=== PATIENT | male | born 1955 | race Caucasian/White ===

== ENCOUNTER 2023-07-14 17:30 | Inpatient (IN) | payer OTHER, SELFPAY ==
[2023-07-14] VITALS (7 sets, daily range): BP systolic 72–120; BP diastolic 52–76; BMI 29.7
--- NOTE | 2023-07-14 13:56 | ED.GENMED ---
History of Present Illness
General
Chief Complaint: Chest Pain
Time Seen by Provider: 07/14/23 13:50
Travel History
Have you had any contact with someone who has COVID-19?: No
Do you have any symptoms of coronavirus? Fever > 100 degrees, chills, cough, shortness of breath, sore throat, loss of taste or smell, muscle aches, or headache?: Yes
Symptoms:: fever
History of Present Illness
History of Present Illness:
HPI: The patient presents with chest tightness that started last night around 8 PM. It has been constant for the past 18 hours. He was never diaphoretic and never had any shortness of breath but notes that the symptoms worsen with exertion.
EXAM:
GENERAL: Well appearing in minimal distress
HEENT: Moist oral mucosa
CARDIOVASCULAR: No murmurs, tachycardic heart rate and rhythm, No chest wall tenderness
PULMONARY: No respiratory distress, breath sounds are clear and equal
ABDOMEN: Soft with no peritoneal signs, no tenderness
NEUROLOGIC: Excellent strength all extremities, no coordination deficits
PSYCHIATRIC: Appropriate mental status, normal insight and judgement
EXTREMITIES: Nontender, no edema, moves all extremities equally
SKIN: No rash, no lesions
ED COURSE:
1:50 PM: I initially evaluated patient
NUMBER AND COMPLEXITY OF PROBLEMS ADDRESSED AT THE ENCOUNTER
� Chronic conditions affecting care: High blood pressure and diabetes
� Acute Exacerbation and/or Progression of Chronic Illness: This is an acute problem
� Differential Diagnosis includes: ACS/STEMI
AMOUNT AND/OR COMPLEXITY OF DATA TO BE REVIEWED AND ANALYZED
� I performed an independent evaluation of and my interpretation is:
EKG: EKG shows sinus tachycardia with marked ST depression in the posterior leads consistent with posterior STEMI
CT:
X-rays:
Laboratory Studies: White count 11.5, troponin 0.167
Other:
� Review of other/old records: Old records show the patient does have a history of diabetes and was here in 2007 with chest pain
� Clinical information was obtained by an independent historian: I spoke to the bedside
� Prescriptions/Medications Considered but not given:
� Further testing considered but not performed:
RISK OF COMPLICATIONS AND/OR MORBIDITY OR MORTALITY OF PATIENT MANAGEMENT
� Social determinants of health affecting care:
� Discussion with other providers: I notified Dr. Gallegos of the STEMI at approximately 1:53 PM
� Escalation of care including admission/observation vs risk of discharge considered: Given the new ST abnormality with concern for posterior STEMI, STEMI alert was called shortly after patient arrival. Patient left the
department shortly after initial evaluation.
Past History
Past History
ED Past Medical History: Other (na)
ED Past Surgical History: Orthopedic (Left rotator cuff repair)
Social History
Tobacco: Non-smoker
Alcohol: None
Personal:
Living: with family
Family History
Family History: Negative Early CAD, CAD or Sudden
Phy Exam
Physical Exam
Physical Exam:
See HPI
Scores
Heart Score for Chest Pain Patients
STEMI patient?: Yes
Course
Orders/Labs/Results
Orders:
Orders
07/14/23 13:34
EKG [Electrocardiogram (*1)] Urgent
Reason for Study: Chest Pain
EKG- Treatment ONCE
07/14/23 13:58
Complete Blood Count/With Diff Urgent
Comprehensive Metabolic Panel Urgent
Prothrombin Time Urgent
Troponin I Urgent
Aspirin Chewable [Low Strength Aspirin] 324 mg .ROUTE .STK-MED ONE
Heparin 5,000 units .ROUTE .STK-MED ONE
Ticagrelor [Brilinta] 180 mg .ROUTE .STK-MED ONE
07/14/23 14:44
Arterial Blood Gas Urgent
07/14/23 14:48
Lidocaine HCl/Pf [Xylocaine-Mpf 1% Vial] 100 mg .ROUTE .STK-MED ONE
07/14/23 15:00
Heparin Sodium,Porcine/Ns/Pf [Heparin 2000 Units/1000 ml] 2,000 unit in 1,000 ml .ROUTE .STK-MED
NORepinephrine 4 MG/250 ML [Levophed] 4 mg in 250 ml IV PER PROTOCOL
Initial dose in mcg/min, then titrate:: 4
Titrate to keep:: SBP > 90 mmHg
Titrate by mcg/min:: 1-2 mcg/min
Frequency of titrations (minutes):: 5
Maximum dose in ICU in mcg/min:: 30
Maximum dose in IMU in mcg/min:: 8
Maximum dose in IVU in mcg/min:: 4
Begin to taper infusion when:: Remained at goal for 4hrs
Taper by mcg/min:: 1-2 mcg/min
Frequency of taper (minutes) if patient maintains goal:: 30
Taper to off?: Yes
If infusion off & no longer maintaining goal:: Contact Provider
07/14/23 15:49
Arterial Blood Gas Urgent
07/14/23 16:10
Heparin 1000 Units/500 ml [Heparin] 1,000 units in 500 ml .ROUTE .STK-MED
07/15/23 08:00
Polyethylene Glycol Powder [Miralax] 17 grams TUBE DAILY
Abnormal Lab Results
07/14/23 07/14/23 07/14/23
13:58 14:33 14:44
WBC 11.5 H 10^3/uL
(4.8-10.8)
Abs Immat Gran (auto) 0.1 H 10^3/uL
(0-0.05)
Absolute Neuts (auto) 9.0 H 10^3/uL
(1.4-6.5)
Absolute Lymphs (auto) 0.9 L 10^3/uL
(1.2-3.4)
Absolute Monos (auto) 1.4 H 10^3/uL
(0.1-0.6)
Neutrophils % 78.6 H %
(42.2-75.2)
Lymphocytes % 7.7 L %
(20.5-51.1)
Monocytes % 12.2 H %
(1.7-9.3)
pH
pO2 60 L mmHg
(83-108)
ABG O2 Sat (Measured) 92.6 L %
(94-98)
Sodium 133 L mmol/L
(135-145)
BUN 22 H mg/dl
(9-20)
Glucose 181 H mg/dl
(70-99)
Total Bilirubin 1.5 H mg/dl
(0.2-1.3)
Troponin I 0.167 H* ng/ml
POC ACT Low Range 207 H Seconds
(116-155)
07/14/23 07/14/23 07/14/23
14:48 15:09 15:34
WBC
Abs Immat Gran (auto)
Absolute Neuts (auto)
Absolute Lymphs (auto)
Absolute Monos (auto)
Neutrophils %
Lymphocytes %
Monocytes %
pH
pO2
ABG O2 Sat (Measured)
Sodium
BUN
Glucose
Total Bilirubin
Troponin I
POC ACT Low Range 281 H Seconds > 397 H Seconds 319 H Seconds
(116-155) (116-155) (116-155)
07/14/23
15:49
WBC
Abs Immat Gran (auto)
Absolute Neuts (auto)
Absolute Lymphs (auto)
Absolute Monos (auto)
Neutrophils %
Lymphocytes %
Monocytes %
pH 7.34 L
(7.35-7.45)
pO2 166 H mmHg
(83-108)
ABG O2 Sat (Measured) 99.4 H %
(94-98)
Sodium
BUN
Glucose
Total Bilirubin
Troponin I
POC ACT Low Range
07/14/23 13:58
07/14/23 13:58
Vital Signs
Initial and Last Documented VS:
Initial Vital Signs
Temp Pulse Resp BP Pulse Ox
100.5 F H 122 18 113/75 98
07/14/23 13:38 07/14/23 13:38 07/14/23 13:38 07/14/23 13:38 07/14/23 13:38
Last Documented Vital Signs
Temp Pulse Resp BP Pulse Ox
100.5 F H 122 18 113/75 98
07/14/23 13:38 07/14/23 13:38 07/14/23 13:38 07/14/23 13:38 07/14/23 13:38
*Critical Care Note
Total Time (30-74mins, 75-104mins- exclusive of procedures): Not Applicable
ED Attending Note
-
Portions of this chart may have been created with voice recognition software.� Occasional wrong word or��sound alike� substitutions may have occurred due to the inherent limitations of voice recognition software.
Discharge Plan
Departure
Patient Disposition: Admit
Date of Disposition: 07/14/23
Time of Disposition: 13:56
Presentation/result/management discussed w/ accepting MD/DO: farhan
Discharge Problem:
Acute ST elevation myocardial infarction (STEMI) of posterior wall
Interventions
Interventions:
*Risk Screen - Suicide Last Done: 07/14/23 14:12
*General Assessment Last Done: 07/14/23 13:38
*Neglect/Abuse Screening Last Done: 07/14/23 14:12
ED- Fall Risk Assessment Last Done: 07/14/23 14:13
*ED COVID-19 Vaccine History Last Done: 07/14/23 13:38
*Nursing Disposition Last Done: 07/14/23 14:13
ED- Cardiac Assessment Last Done: 07/14/23 14:12
Discharge Date and Time
Discharge Date/Time: 07/14/23 14:14
[2023-07-14 14:04] LABS: % Basophils 0.6 % (0-2); % Eosinophils 0.4 % (0-6); % Immature Granulocytes 0.5 % (0-0.5); % Lymphocytes 7.7 % (20.5-51.1); % Monocytes 12.2 % (1.7-9.3); % Neutrophils 78.6 % (42.2-75.2); Absolute Basophils 0.1 10^3/uL (0-0.2); Absolute Eosinophils 0.1 10^3/uL (0-0.7); Absolute Immature Granulocytes 0.1 10^3/uL (0-0.05); Absolute Lymphocytes 0.9 10^3/uL (1.2-3.4); Absolute Monocytes 1.4 10^3/uL (0.1-0.6); Hematocrit 42.1 % (39.0-52.0); Hemoglobin 14.4 g/dL (13.0-18.0); Mean Corp Hgb Conc. 34.2 g/dL (33.0-37.0); Mean Corpuscular Hgb 27.8 pg (27.0-31.0); Mean Corpuscular Volume 81.3 fL (80.0-94.0); Mean Platelet Volume 9.6 fL (7.4-10.4); Nucleated Red Blood Cells % 0 % (-); Platelet Count 283 10^3/uL (130-400); Red Blood Cell Count 5.18 10^6/uL (4.70-6.10); Red Cell Dist. Width 13.2 % (11.5-14.5); White Blood Cell Count 11.5 10^3/uL (4.8-10.8)
[2023-07-14 14:15] LABS: INR 1.11; PT 14.4 Sec (11.4-14.6)
[2023-07-14 14:19] LABS: ALT (SGPT) 34 U/L (0-50); AST (SGOT) 37 U/L (17-59); Albumin 4.7 g/dl (3.5-5.0); Alkaline Phosphatase 79 U/L (38-126); Blood Urea Nitrogen 22 mg/dl (9-20); Carbon Dioxide 23 mmol/L (22-30); Chloride 101 mmol/L (98-107); Estimated Creatinine Clearance 75 ml/min; Glucose 181 mg/dl (70-99); Potassium 4.3 mmol/L (3.5-5.1); Sodium 133 mmol/L (135-145); Total Bilirubin 1.5 mg/dl (0.2-1.3); Total Protein 7.8 g/dl (6.3-8.2); eGFR > 60.00
[2023-07-14 14:32] LABS: Troponin I 0.167 ng/ml
[2023-07-14 14:39] LABS: ACT-LR - POC 207 Seconds (116-155)
[2023-07-14 14:45] LABS: B.E. -0.3 mmol/L; HCO3 24.1 mmol/L (21-28); O2 Saturation % 92.6 % (94-98); PCO2 38 mmHg (35-48); PO2 60 mmHg (83-108); pH 7.41 (7.35-7.45)
[2023-07-14 14:55] LABS: ACT-LR - POC 281 Seconds (116-155)
--- NOTE | 2023-07-14 15:09 | CON.CAR ---
Consultation
Consultation Request
Reason for Consultation: STEMI
Medical History
-
Chief Complaint: Chest pain, STEMI
History of Present Illness:
67 yo WM h/o HTN, Hyperlipidemia, NIDDM who developed 'indigestion' after eating chili last night around 5pm, the pain continued through the night and this morning he presented to the ER with [address] with ST elevations. He was given
heparin, brilinta, ASA and brought urgently to the oven laborer
Past Medical History
Past Medical History: HTN, Hypercholesterolemia, NIDDM and Other (Psoriasis, Diabetic retinopathy)
Past Surgical History: Orthopedic (L rotator cuff)
Social History
Tobacco: Non-Smoker
Alcohol: None
Drug: None
Personal:
Living: With Family (with Luz and adopted two sons 37yo and 19yo)
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
Family History
Family History: Reviewed & Not Pertinent (Father 92 of CHF, Mother 82 Alzheimers, DM)
Allergies / Home Medications
Allergy/AdvReac Type Severity Reaction Status Date / Time
NKA - No Known Allergies Allergy Unknown Uncoded 07/14/23 13:42
Medication Instructions Recorded Confirmed Type
metformin 500 mg tablet 500 mg PO BID 04/27/10 04/27/10 History
ondansetron 4 mg disintegrating 4 - 8 mg PO TIDPRN PRN NAUSEA #15 04/27/10 Rx
tablet tabs
Review of Systems
-
Cardiac: Chest Pain (01/20 on arrival to oven laborer)
Physical Exam
Vital Signs
Temp Pulse Resp BP Pulse Ox
100.5 F H 122 18 113/75 98
07/14/23 13:38 07/14/23 13:38 07/14/23 13:38 07/14/23 13:38 07/14/23 13:38
Lab Results
07/14/23 13:58
07/14/23 13:58
Troponin I 0.167 ng/ml H* 07/14/23 13:58
Physical Exam
General: Pain (deferred due to being emergently prepped and draped for cardiac cath)
Impression / Plan
-
PCP: Dena Joseph, DO
Endocrinology: Dr. Abdi
Impression:
STEMI
Acute hypoxic respiratory failure
Leukocytosis/Febrile
HTN
Hyperlipidemia
NIDDM with DM retinopathy
L Rotator cuff surgery
Plan:
Admit post cath
Intubated 07/14 intraprocedural to protect airway
serial troponin to peak
Check Echo
DAPT ASA/Brilinta
initiate low dose BB as able
DM - Check A1c last 8.8% 09/14/21, SSI, consult DM educator as pt was using insulin pump
Leukocytosis - trend WBC, temperatures, Check CXR and COVID/Flu
cardiac rehab c/s
Data Reviewed
-
Medical Tests (Nuc Med, Echo etc): Report Reviewed by me
[2023-07-14 15:41] LABS: ACT-LR - POC 319 Seconds (116-155)
[2023-07-14 15:46] LABS: ACT-LR - POC > 397 Seconds (116-155)
[2023-07-14 16:04] LABS: B.E. -3.9 mmol/L; HCO3 21.6 mmol/L (21-28); O2 Saturation % 99.4 % (94-98); PCO2 40 mmHg (35-48); PO2 166 mmHg (83-108); pH 7.34 (7.35-7.45)
--- NOTE | 2023-07-14 16:21 | CON.INTV ---
Consultation
Consultation Request
Date/Time Consultation Requested: 07-14-23
Date/Time Consultation Performed: 07-14-23
Requesting Provider: Dr Arroyo
Performing Provider: Dr Felix
Reason for Consultation: hypoxemia
Medical History
-
Chief Complaint: dyspnea
History of Present Illness:
Mr Edmundo Glass is a 67/M adm 07-14 with chest tightness since 8pm on night [employer].
At time of ER visit, 18hrs of constant chest tightness associated with VARELA. At ER, not in resp distress, POx 98%, normal BP, tachycardic, afebrile, EKG with ST depression from V2-6, elevated troponin.
Taken to slab stripper, needed intubation due to hypoxemia.
H&P and [facility] report pending, needed circulatory assist device (impella)
Past Medical History
Past Medical History: Other (see A&P for PMH/PSH)
Social History
Tobacco: Non-smoker
Alcohol: None
Personal:
Living: With Family
Family History
Family History: Unable to Obtain
Allergies / Home Medications
Allergies
Allergy/AdvReac Type Severity Reaction Status Date / Time
NKA - No Known Allergies Allergy Unknown Uncoded 07/14/23 13:42
Home Medications
Medication Instructions Recorded Confirmed Last Taken Type
metformin 500 mg tablet 500 mg PO BID 04/27/10 04/27/10 04/26/10 18:00 History
ondansetron 4 mg disintegrating 4 - 8 mg PO TIDPRN PRN NAUSEA #15 04/27/10 Unknown Rx
tablet tabs
Review of Systems
-
Unable to Obtain full review of systems at this time due to: Patient Intubation
Vitals / Labs / Diagnostic Testing
Vital Signs
Temp Pulse Resp BP Pulse Ox
100.5 F H 122 18 113/75 98
07/14/23 13:38 07/14/23 13:38 07/14/23 13:38 07/14/23 13:38 07/14/23 13:38
Lab Data
07/14/23 13:58
07/14/23 13:58
Laboratory Results
07/14/23 07/14/23 07/14/23
13:58 14:44 15:49
PT 14.4
INR 1.11
pH 7.41 7.34 L
pCO2 38 40
pO2 60 L 166 H
HCO3 24.1 21.6
O2 Delivery Level Not Reportable
Diagnostic Testing:
Physical Exam
-
HEENT: Normocephalic
Cardiovascular: Regular Rhythm and Peripheral Edema (n)
Respiratory: Clear and Non-Labored Respirations
GI: Soft and Non Distended
Neurology: Other (sedated)
Skin: Dry
Exam:
R groin hematoma
Assessment
-
Assessment:
Mr Edmundo Glass is a 67/M adm 07-14 with chest tightness since 8pm on night [employer]. At time of ER visit, 18hrs of constant chest tightness associated with VARELA. At ER, not in resp distress, POx 98%, normal BP, tachycardic, afebrile, EKG with ST
depression from V2-6, elevated troponin. Taken to slab stripper, during cardiac cath he presented hypoxemia and then vomit, anesthesia proceeded to intubation to protect airway. H&P and [facility] report pending, needed circulatory support device (impella). D/w
Dr Arroyo at bedside, stented high degree lesion at Cx
Impression:
AMI
S/p [facility] 07-14-23
Acute respiratory failure
Conditions [employer]:
IDDM, on insulin pump
Sinus arrhythmia
L rotator cuff repair
Nonsmoker
Plan:
Adm to CVICU after [facility] for AMI, needed intubation and circulatory support device
Continue ACV
Current settings 14-500-5-1.0 (POx 100%)
fiO2 adjusted to 60%
Titrate to keep resp comfort and POx>=94%
ABG on above settings with hyperoxia at 122, normal AB balance
Well synchronized to ACV at time of visit
Sedation/analgesia
Propofol/fentanyl gtts, orders updated as d/w Pharmacy
Continue impella
Continue NE
Monitor SIERRA pulses
Monitor R groin hematoma
Hemodynamic mgmt
ASA, ticagrelor to continue
Statin to continue
Blood cxs
Resp secs cx
COVID/flu
Empiric atbs: vanco/zosyn
Insulin gtt for glycemic control
PPI for GI prophylaxis
Prognosis guarded
Critical care time: 35 min
Diagnostic tests:
CXR 07-14-23: portable, no comparison films, pulm vasc congestion with bat wing pattern, no pneumothorax or pleural effusions. ET, GT. RIJ SG
--- NOTE | 2023-07-14 17:05 | ITS.CL.ANGIO ---
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
Angioplasty
Procedure Report:
CARDIAC CATHETERIZATION REPORT
Date of Procedure: 07/14/2023
Referring: Kerwin King D.O.
Indication: ST elevation myocardial infarction, cardiogenic shock.
PROCEDURE:
1. Right heart catheterization.
2. Left heart catheterization.
3. Coronary angiography.
4. Abdominal aortography with runoff of the femoral vessels.
5. Placement of Impella percutaneous left jugular site device.
6. Successful IVUS guided PCI of the 90% ostial circumflex lesion with post hoc intracoronary lithotripsy.
ACCESS:
6 Swazi right radial artery.
6 Swazi right common femoral artery using a modified Seldinger technique with a micropuncture kit under ultrasound guidance.
Upsizing of the 6 Swazi right common femoral artery access to a 14 Swazi Impella sheath.
8 Swazi right internal jugular vein.
CATHETERS:
1. 7.5 Swazi [place] catheter.
2. 5 Swazi JL 3.5.
3. 5 Swazi JR4.
4. 5 Swazi angled pigtail catheter.
5. 6 Swazi EBU 3.5 guiding catheter.
HEMODYNAMIC DATA
Weight (kg): 85.7
(obtained prior to Impella CP placement and intubation)
AO (s/d/x mmHg): 100/68/80
LV (s/x mmHg): 108/35
(obtained after Impella CP placement and intubation)
AO (s/d/x mmHg): 88/59/68
PCWP (a/v/x mmHg):
PA (s/d/x mmHg): 09/03/15
RV (s/x mmHg): 32/5
RA (a/v/x mmHg): 87/
SVC SvO2 (%): 83.5
PA SvO2 (%): 75.1
SaO2 (%): 99.0
Hbg (g/dL): 13.7
Graciela equation
CO (L/min): 8.96
CI (L/min/m2): 4.54
Thermodilution
CO (L/min): 3.80
CI (L/min/m2): 1.93
TPG (mmHg): 6
PVR (Gaines Units): 1.58
SVR (dynes*seconds*cm^-5): 1326
AVO2 Diff (Volume %): 4.45
AV gradient (x, mmHg): 6.53
AV area (cm2): 1.81
LEFT VENTRICULOGRAPHY: Performed in PATTERSON projection. Normal size left ventricle with hypokinesis of the anterior and inferior cat with severe hypokinesis to akinesis of the entire lateral wall. Left ventricular ejection fraction estimated at
35-40%. There is no significant mitral valve regurgitation. There is no aortic valve insufficiency. The aortic root, ascending aorta and visualized ascending aorta appear normal.
CORONARY ANGIOGRAPHY
Dominance: Right.
Left Main: Normal size, bifurcating vessel. There is no coronary artery disease.
LAD: Normal size vessel giving rise to several small diagonals. There is a densely calcified 90% lesion in the proximal vessel followed by poststenotic dilation. The poststenotic area is followed by an additional 60-70% lesion before the
vessel caliber normalizes. There is a long, 40-50% lesion more distally. The distal LAD normalizes.
Ramus: Congenitally absent.
Circumflex: Normal size, nondominant vessel that gives rise to 1 large obtuse marginal. The marginal arises high on the circumflex, almost immediately after its origin. The AV groove circumflex is a diffusely diseased vessel giving rise to
several more small and clinically insignificant marginals. There is a critical, hazy, densely calcified 90% lesion in the ostium of the circumflex, right at the bifurcation of the AV groove circumflex and the primary obtuse marginal.
RCA: Normal size, dominant vessel which is chronically totally occluded at its origin. The distal vessel/RPDA is supplied by collaterals from the LAD and circumflex.
INTERVENTIONS
1. Placement of an Impella CP percutaneous left ventricular assist device.
2. Successful IVUS guided PCI of the ostial 90% circumflex lesion (Medtronic [place] 2.5 x 12 PRAKASH, postdilated with a 2.5 x 12 NC balloon to 18 rosalinda).
3. Successful post hoc intracoronary lithotripsy of the underexpanded segment of the circumflex stent (2.5 x 12 shockwave balloon).
Narrative:
The patient underwent diagnostic angiography via a right radial approach. Unfortunately, the right radial artery underwent spasm and would no longer except diagnostic or interventional catheters. While we were preparing for right common femoral
access, the patient became progressively hypoxic, requiring oxygen on a nonrebreather. Even on a nonrebreather, the patient's oxygen saturation were in the high 80s. Respiratory therapy was called for BiPAP. While placing the BiPAP, the patient
projectile vomited twice. Given vomiting is a direct contraindication to BiPAP therapy, anesthesia was called for intubation and sedation to secure the patient's airway.
Right common femoral access was obtained and a pigtail catheter was advanced for left ventriculogram. This suggested a primary culprit of the circumflex artery with reduced systolic function. The patient's blood pressure was borderline, his LVEDP
was 35 and there was slow flow in the peripheral arteries on angiography. The decision was made to support the patient's ventricular function with a percutaneous LVAD. The pigtail catheter was withdrawn from left ventricle and aortography was
performed with runoff of the common femoral vessels. Initially the left common femoral artery appeared suitable, but ultrasound quickly demonstrated that there was an eccentric, calcified plaque within the common femoral artery making access to the
artery tenuous with a high likelihood of ischemia to the left lower extremity. The decision was made to upsize access on the right side and proceed with a single access intervention.
The pigtail catheter was removed over a wire. The short 14 Swazi Impella sheath was placed. An ACT was confirmed > 250 seconds throughout the case. The Impella CP was prepped on the back table. A 5 Swazi pigtail catheter was prolapsed into the
left ventricle and a 0.018 inch wire was advanced into the apex of the left ventricle. The pigtail catheter was withdrawn. The Impella CP was advanced over the wire and seated across the aortic valve. The wire was removed and the Impella was
started. Fluoroscopy, pressure gradient and motor current confirmed satisfactory position.
A 6 Swazi sheath was placed at the 10 o'clock position in the Impella sheath. The 6Fr EBU 3.5 guiding catheter was advanced to the aortic root and seated in the left main coronary artery. Additional heparin was given and a Power Turn Flex wire was
advanced into the distal obtuse marginal. The hazy, densely calcified 90% ostial circumflex lesion was predilated with a 2.0 x 12 semi-compliant balloon to 12 rosalinda without release of the lesion. The semicompliant balloon was withdrawn and a 2.5 x 12
noncompliant balloon was advanced. The lesion was predilated again to 18 rosalinda, again with some residual waist in the balloon.
A BMW wire was placed in the LAD for guidance and protection of the vessel. The noncompliant balloon was removed and a Medtronic [place] 2.5 x 12 drug-eluting stent was advanced. The stent was deployed at 12 atmospheres. The stent balloon was
removed. The 2.5 x 12 noncompliant balloon was readvanced into the stent and the stent was postdilated to 20 atmospheres.
The decision was made to perform intracoronary imaging. An IVUS catheter was advanced through the guiding catheter and into the ostium of the artery. Ring down was performed once the imaging crystal was no longer inside of the guiding catheter. The
IVUS catheter was advanced into the mid obtuse marginal. Intravascular ultrasound was performed in a retrograde fashion using a slow pullback. Intracoronary imaging demonstrated good stent apposition throughout with significant under deployment in
the proximal margin.
The decision was made to perform post hoc intracoronary lithotripsy. A Shockwave 2.5 x 12 coronary lithotripsy balloon was advanced over the wire and into the ostial circumflex lesion. The balloon was sterilely connected to the controller and
prepped to negative pressure. Meticulous care was taken while positioning the shockwave balloon. Once in satisfactory position, the balloon was inflated to 4 rosalinda. After confirming good contact with the vessel wall, 10 pulses were delivered.
After delivering 10 pulses, the balloon was inflated to 6 rosalinda then deflated. The entire lesion was treated in a similar manner for total of 12 rounds. The shockwave balloon was withdrawn and a 2.75 x 8 NC balloon was advanced. The proximal stent
was postdilated to 16 rosalinda.
The noncompliant balloon was withdrawn and the IVUS catheter was readvanced, this time showing significantly improved expansion of the proximal stent margin.
Angiography was performed in orthogonal views, confirming good stent expansion and an excellent angiographic result. The coronary wire was withdrawn and the guide was disengaged from the artery. The catheter was removed over a standard J-wire.
The short 14 Swazi sheath was removed and the repositioning sheath was advanced, then sutured in place. The right radial sheath was sutured in place to act as an arterial line. A right heart cath was subsequently performed from the right internal
jugular vein.
Closure Device: None.
Radiation dose (mGy): 1345.05
DAP (cm2.Gy): 88.69
Fluoroscopy time (minutes): 24.8
Sedation time (minutes): 27
CONCLUSIONS:
1. Right dominant circulation with a BUSINESS SERVICES MANAGER of the proximal RCA, a 90% proximal LAD lesion lesion, a 70% mid LAD lesion, a long, 50% distal LAD lesion and a hazy, densely calcified 90% ostial circumflex lesion immediately proximal to the bifurcation
of the circumflex and primary obtuse marginal, status post successful IVUS guided PCI (Medtronic [place] 2.5 x 12 PRAKASH, postdilated with a 2.5 NC balloon to 18 rosalinda).
2. Post hoc intracoronary lithotripsy and postdilation after IVUS revealed underexpansion of the proximal stent (shockwave 2.5 x 12 lithotripsy balloon, 2.75 x 8 NC balloon to 16 rosalinda).
3. Normal left ventricular size with severe hypokinesis/akinesis of the lateral/anterolateral wall and moderately depressed systolic function (LV ejection fraction 35-40% on ventriculography).
4. Severely elevated filling pressures with depressed cardiac function, consistent with cardiogenic shock (LVEDP = 33 mmHg, cardiac index 1.9 L/min/m�).
5. Status post successful placement of a percutaneous left ventricular assist device (Abiomed Impella CP) via right common femoral approach.
6. Status post right heart catheterization via right internal jugular approach.
RECOMMENDATIONS:
1. Expectant management after cardiac catheterization via right common femoral artery/right radial artery and right internal jugular approach.
2. Consult CV surgery as well as discussion with [facility] regarding options for escalation of mechanical circulatory support if indicated.
3. Titration of vasopressors and Impella settings to maintain cardiac index >2.2 and mean arterial pressure greater than 65 mmHg.
4. Dual antiplatelet therapy with aspirin and ticagrelor for at least 1 year, followed by aspirin indefinitely.
5. Serial lab checks every 4 hours including H&H and lactate. Monitor for hemolysis.
6. Stat echocardiogram.
Copy to: Lashay Geller D.O.
Ramírez Arroyo DO, FACC, FACP
[2023-07-14 17:51] LABS: Glucose - Point of Care 244 mg/dl (70-99)
[2023-07-14 17:52] LABS: ACT-LR - POC 176 Seconds (116-155)
[2023-07-14] MEDS: SUBLIMAZE 85 MCG IV (17:56)
[2023-07-14] MEDS: SUBLIMAZE 100 IV (17:57)
--- NOTE | 2023-07-14 18:00 | PTCARENOTE ---
Received pt from [facility] Intubated and sedated on the ventilator. # 8 ETT at 22cm RT lip. VEnt AC 16 500 peep 5 fio2 60%. pulse ox of 100%. ST BBB on monitor. RT IJ Cordis with swan floated to 45 cm. Rt radial A line transducing, lines leveled,
recalibrated, and flushed. Impella via RT femoral artery. Large hematoma present on arrival, MD aware, laborer wharf RN applied fem stop to groin per DR. Arroyo order. Impella at p5. DP pulse by doppler , no DP pulse audible. MD aware. RT leg cold,
poor cap refill. pupils equal bilaterally 3 mm and sluggish. Moving all extremities upon arrival. Soft restraints placed to bilateral upper extremities. Lungs decreased bilaterally t/o. Abdomen soft / obese, hypoactive bowel sounds. Warren
draining clear yellow urine. No edema appreciated. Drips as follows: Propofol and levophed. Fentanyl bolus and drip initiated. Glycemic protocol also initiated. Labs obtained, flu and covid swabs obtained. Md at bedside.
[2023-07-14 18:02] LABS: B.E. -1.9 mmol/L; HCO3 22.2 mmol/L (21-28); O2 Saturation % 98.9 % (94-98); PCO2 35 mmHg (35-48); PO2 122 mmHg (83-108); pH 7.41 (7.35-7.45)
[2023-07-14 18:04] LABS: % Basophils 0.5 % (0-2); % Eosinophils 0.2 % (0-6); % Immature Granulocytes 0.5 % (0-0.5); % Lymphocytes 4.6 % (20.5-51.1); % Neutrophils 84.2 % (42.2-75.2); Absolute Basophils 0.1 10^3/uL (0-0.2); Absolute Immature Granulocytes 0.1 10^3/uL (0-0.05); Absolute Lymphocytes 0.6 10^3/uL (1.2-3.4); Absolute Monocytes 1.3 10^3/uL (0.1-0.6); Absolute Neutrophils 11.2 10^3/uL (1.4-6.5); Hematocrit 39.5 % (39.0-52.0); Hemoglobin 13.7 g/dL (13.0-18.0); Mean Corp Hgb Conc. 34.7 g/dL (33.0-37.0); Mean Corpuscular Hgb 27.8 pg (27.0-31.0); Mean Corpuscular Volume 80.3 fL (80.0-94.0); Mean Platelet Volume 9.8 fL (7.4-10.4); Nucleated Red Blood Cells % 0 % (-); Platelet Count 301 10^3/uL (130-400); Red Blood Cell Count 4.92 10^6/uL (4.70-6.10); Red Cell Dist. Width 13.4 % (11.5-14.5); White Blood Cell Count 13.3 10^3/uL (4.8-10.8)
--- NOTE | 2023-07-14 18:13 | HPS.HSE ---
Family Physician
-
Family Physician: INTERVIEWE UNKNOWN - PT NOT
Chief Complaint
-
chest pain
History of Present Illness
67-year-old male with past medical history of diabetes, hypertension past medical history of presenting with chest tightness which started last night around 8 PM worse with exertion and has been constant since then. He denied any diaphoresis or
shortness of breath.
Patient to the [facility] and was found to have multivessel CAD and underwent PCI of OM. He was intubated and sedated. Impella was placed. Cardiac index of 1.9 while on Impella and norepinephrine.
Was unable to reach spouse for further information.
Medical History
Past Medical History
Past Medical History: Reports Other (diabetes, hypertension)
Past Surgical History: Reports None
Social History
Unable to obtain full social history at this time due to: Patient Intubation
Family History
Family History: Not pertinent
Allergies / Home Medications
Allergies reflects when Allergies were last updated in [employer]
Home Medications with original date entered in [employer]
Allergy/Medication List:
Allergies
Allergy/AdvReac Type Severity Reaction Status Date / Time
No Known Allergies Allergy Unverified 07/14/23 16:22
Home Medications
lisinopril 20 mg tablet 20 mg PO DAILY 07/14/23
sub-q insulin device, 20 unit (V-GO 20 device) 07/14/23
Review of Systems
-
Unable to obtain full review of systems at this time due to: Patient Intubation
A 12 point ROS was completed and negative except as noted: No
Physical Exam
Vital Signs
Vital Signs
Temp Pulse Resp BP Pulse Ox
100.9 F H 108 19 120/70 100
07/14/23 18:00 07/14/23 18:00 07/14/23 18:00 07/14/23 14:00 07/14/23 18:00
Physical Exam
General: Well Developed, Well Nourished and No Apparent Distress
HEENT: NormoCephalic, Moist mucous membranes and Atraumatic
Respiratory: Clear
Cardiac: S1/S2 and Regular Rhythm; No Murmur or Rub
GI: Soft, Non Tender, Non Distended and Normal Bowel Sounds; No Organomegaly
Rectal: Deferred by Provider
Musculoskeletal: No Clubbing, No Cyanosis and No Edema
Skin: No Rash
Neuro: Nonfocal/grossly intact
Laboratory Results
-
07/14/23 23:00
Laboratory Results
PT 14.4 Sec (11.4-14.6) 07/14/23 13:58
INR 1.11 07/14/23 13:58
pH 7.41 (7.35-7.45) 07/14/23 17:53
pCO2 35 mmHg (35-48) 07/14/23 17:53
pO2 122 mmHg (83-108) H 07/14/23 17:53
HCO3 22.2 mmol/L (21-28) 07/14/23 17:53
Total Bilirubin 1.5 mg/dl (0.2-1.3) H 07/14/23 13:58
AST 37 U/L (17-59) 07/14/23 13:58
ALT 34 U/L (0-50) 07/14/23 13:58
Alkaline Phosphatase 79 U/L (38-126) 07/14/23 13:58
Troponin I 0.167 ng/ml H* 07/14/23 13:58
Data Reviewed
-
Lab Data: Labs Reviewed by me
Old Records: Reviewed
Impression/Plan
-
IMPRESSION:
PLAN:
# STEMI
# Cardiogenic shock status post Impella
-Underwent PCI of OM
-Impella placed
-Intubated and sedated on propofol, fentanyl pushes
-On Levophed
-FemoStop placed over Impella site for hematoma
-Continue aspirin, Brilinta, statin
-Cardiology to manage heparin drip
-Check echo
-Cardiology following and trying to transfer patient to [place]
-Cardiothoracic surgery consult
-Gear Machine Operator General consult
# Sepsis (fever, leukocytosis) unclear etiology
-Check blood cultures
-Check urinalysis/chest x-ray
-Check COVID
-empiric Vancomycin/Zosyn
Type 2 diabetes
-Patient appears to be on V-GO 20 insulin patch
-critical care insulin drip already ordered
Essential hypertension
-Hold lisinopril
Full code
DVT prophylaxis�heparin drip
N.p.o.
[2023-07-14 18:14] LABS: Lactic Acid 1.2 mmol/L (0.7-2.0)
[2023-07-14] MEDS: NOVOLIN R INSULIN INFUSION 100 IV (18:30)
--- NOTE | 2023-07-14 18:33 | PTCARENOTE ---
BP drops to 70's systolic with PVC's. Pt able to recover slowly on own. notified.
[2023-07-14 18:37] LABS: APTT 187.9 Sec (23.4-35.0)
[2023-07-14] MEDS: DIPRIVAN 100 IV ×2 (18:43→21:26)
[2023-07-14] MEDS: PROTONIX IV 40 MG IV (18:44)
[2023-07-14] MEDS: ALBUMIN 5% 250 IV ×2 (18:44→18:45)
[2023-07-14] MEDS: NSS (PRESERVATIVE FREE) 10 ML IV (18:44)
[2023-07-14] MEDS: LIPITOR 80 MG TUBE (18:44)
[2023-07-14 18:46] LABS: Urine Albumin Trace (Neg - Trace); Urine Bilirubin Negative (Negative); Urine Character Clear (Clear); Urine Color Yellow; Urine Glucose Negative (Negative); Urine Ketone 1+ (Negative); Urine Leukocyte Negative (Negative); Urine Nitrite Negative (Negative); Urine Occult Blood 4+ (Negative); Urine Urobilinogen Negative (Neg - 1+)
[2023-07-14 18:47] LABS: ALT (SGPT) 34 U/L (0-50); AST (SGOT) 114 U/L (17-59); Albumin 3.8 g/dl (3.5-5.0); Alkaline Phosphatase 76 U/L (38-126); Blood Urea Nitrogen 20 mg/dl (9-20); Calcium 7.7 mg/dl (8.4-10.2); Carbon Dioxide 18 mmol/L (22-30); Chloride 104 mmol/L (98-107); Estimated Creatinine Clearance 94 ml/min; Glucose 233 mg/dl (70-99); Magnesium 2.1 mg/dl (1.6-2.3); Sodium 130 mmol/L (135-145); Total Bilirubin 1.6 mg/dl (0.2-1.3); Total Protein 6.5 g/dl (6.3-8.2); Triglycerides 115 mg/dl (10-149); eGFR > 60.00
[2023-07-14] MEDS: LEVOPHED 250 IV (18:51)
[2023-07-14 18:53] LABS: Urine Squamous Cell 0-2 /LPF (Few)
[2023-07-14 18:54] LABS: Urine Red Blood Cell 40-50 /HPF (0-2); Urine White Cell 0-2 /HPF (0-5)
[2023-07-14 19:05] LABS: COVID-19 Antigen Negative (Negative)
[2023-07-14] MEDS: CORDARONE 103 MG IV ×2 (19:05→20:34)
--- NOTE | 2023-07-14 19:09 | PHA.VAN.IN ---
Assessment
- Assessment
Renal Function: Appears similar to baseline
Maximum Temperature: 100.9 F core 07/14 @ 1800
Concomitant Antimicrobials: piperacillin/tazobactam
AUC Dosing Plan
- Dosing Variables
Dosing Weight (kg): 86
Dosing CrCl (ml/min): 94
Vd coefficient (L/kg): 0.7
- Empiric Dosing
Initial / Loading Dose: vanc 2000mg pending administration
Maintenance Regimen: vanc 1250mg Q12 starting 07/15 0600
Estimated AUC (mcg*h/mL): 535
Estimated Peak (mcg*h/mL): 33.1
Estimated Trough (mcg/ml): 13.9
Estimated Half Life (H): 8.4
- Monitoring
No levels ordered at this time: consider levels in next few days
MRSA Screen: Ordered per protocol
Pharmacokinetics Vancomycin I
- -
Patient Age: 67
Patient Sex: Male
Vancomycin Day #: 1
Indication: Pulmonary/Respiratory
Requesting Provider: Dr. Curtis
Pertinent Antimicrobial Allergies:
no pertinent antimicrobial allergies
Height / Weight:
Height 5 ft 7 in
Actual Weight 86 kg
- Vital Signs / Lab Results
Temp Pulse Resp BP Pulse Ox
100.9 F H 108 19 120/70 100
07/14/23 18:00 07/14/23 18:00 07/14/23 18:00 07/14/23 14:00 07/14/23 18:00
Lab Results - Hematology
07/14/23 07/14/23
13:58 17:50
WBC 11.5 H 13.3 H
Lab Results - Chemistry
07/14/23 07/14/23
13:58 17:49
BUN 22 H 20
Creatinine 1.0 0.8
Estimated Creat Clear 75 94
Albumin 4.7 3.8
07/14/23
17:51
Lactic Acid 1.2
Lab Results - Urine
07/14/23
18:19
Urine Nitrite (Reflex) Negative
Leukocyte Esterase Rfl Negative
Urine WBC (Reflex) 0-2
Ur Squamous Epith Cells 0-2
Microbiology Results
07/14/23 18:22 Influenza Types A & B (TIANA) - Final
Nasal Swab Influenza A Positive, NAAT
[2023-07-14 19:21] LABS: Glucose - Point of Care 285 mg/dl (70-99)
[2023-07-14 19:22] LABS: ACT-LR - POC 160 Seconds (116-155)
[2023-07-14] MEDS: SODIUM BICARBONATE 1025 MEQ INF CATH (19:22)
[2023-07-14] MEDS: CORDARONE 518 MG IV (19:22)
--- NOTE | 2023-07-14 19:27 | PTCARENOTE ---
Wedding ring removed and given to spouse.
--- NOTE | 2023-07-14 19:47 | PTCARENOTE ---
Dr Arroyo notified that flu A was positive
[2023-07-14] MEDS: SUBLIMAZE 50 MCG IV (19:59)
[2023-07-14] MEDS: VANCOCIN 540 MG IV (20:04)
[2023-07-14 20:11] LABS: ACT-LR - POC 155 Seconds (116-155)
[2023-07-14] MEDS: HEPARIN 25000 UNITS/250 ML IV (20:23)
[2023-07-14 20:37] LABS: B.E. -4.3 mmol/L; HCO3 22.1 mmol/L (21-28); Hemoglobin 12.4 g/dL (13.0-18.0); Ionized Calcium 1.06 mMOL/L (1.15-1.33); O2 Saturation % 98.2 % (94-98); PCO2 45 mmHg (35-48); PO2 99 mmHg (83-108); Potassium 3.9 mMOL/L (3.5-5.1)
[2023-07-14 20:38] LABS: Glucose - Point of Care 189 mg/dl (70-99)
[2023-07-14 20:50] LABS: Blood Urea Nitrogen 22 mg/dl (9-20); Calcium 7.9 mg/dl (8.4-10.2); Carbon Dioxide 22 mmol/L (22-30); Chloride 100 mmol/L (98-107); Estimated Creatinine Clearance 83 ml/min; Glucose 179 mg/dl (70-99); INR 1.21; Lactic Acid 4.4 mmol/L (0.7-2.0); PT 15.3 Sec (11.4-14.6); Sodium 133 mmol/L (135-145); eGFR > 60.00
[2023-07-14 20:51] LABS: APTT 43.6 Sec (23.4-35.0)
[2023-07-14] MEDS: SODIUM BICARBONATE 50 MEQ IV (21:23)
[2023-07-14] MEDS: BRILINTA 90 MG TUBE (21:26)
[2023-07-14] MEDS: ZOSYN 50 IV (21:26)
[2023-07-14] MEDS: CALCIUM CHLORIDE 10% SYRINGE 60 MG IV (21:28)
[2023-07-14 21:30] LABS: LDH 407 U/L (120-246)
[2023-07-14 21:55] LABS: Glucose - Point of Care 182 mg/dl (70-99)
[2023-07-14] MEDS: TAMIFLU 75 MG PO (22:08)
[2023-07-14] MEDS: OFIRMEV 100 IV (22:09)
[2023-07-14] MEDS: KCL 50 IV (22:10)
--- NOTE | 2023-07-14 22:15 | PTCARENOTE ---
Received pt intubated, sedated on Fentanyl and Propofol gtts.Pupils 3 and reactive. Right femoral Impella maintained at P-4. Impella rep at bed side. Right femoral site with oozing on dressing, dressing marked. SR on monitor with occasional PVCs. No
edema. Bilateral lower extremities cool, right DP and PT pulses present by doppler. Left PT pulse present by doppler. #8 ETT, 22 @ lip. Vent settings A/C- rate 14/TV 500/Peep 5/ Fio2 60%, pulse ox 99%. Lung sounds diminished anteriorly. Abdomen
round, hypoactive BS. Oral gastric tube in place and maintained with low intermittent suction. Groin edematous and ecchymotic, CVPA aware. Warren catheter maintained and draining adequate amount of clear, yellow urine. RIJ cordis and swan floated @
45cm. Right radial gonzalo flushed and zeroed. PIVx3 flushed and patent. Received pt with following gtts- Amio, Levo, Fentanyl and Propofol. Insulin gtt titrated per critical care glycemic protocol. At 2009 ATC 155-Heparin gtt started @ 700 units/hr
as per order. Labs obtained and reviewed with CVPA- pt given KCl, CaCl, Bicarb and Amio bolus x2. Ofirmev given for elevated temp. Soft limb restraints to bilateral wrists. See work list for full assessment and interventions.
--- NOTE | 2023-07-14 22:30 | PTCARENOTE ---
Clovis RAMIRES assessed ecchymosis and edema to lower abdomen/scrotum. Also, assessed oozing at right femoral site.
[2023-07-14 22:57] LABS: B.E. 1.7 mmol/L; HCO3 26.6 mmol/L (21-28); O2 Saturation % 98.9 % (94-98); PCO2 42 mmHg (35-48); PO2 150 mmHg (83-108); pH 7.41 (7.35-7.45)
[2023-07-14 23:15] LABS: Glucose - Point of Care 79 mg/dl (70-99)
--- NOTE | 2023-07-14 23:20 | PTCARENOTE ---
Pt and children at bed side and updated. Repeat ABG obtained and reviewed with CVPA. FiO2 decreased from 60% to 40%.
[2023-07-15] VITALS (23 sets, daily range): BP systolic 63–110; BP diastolic 44–78; BMI 30.4
[2023-07-15] MEDS: LEVOPHED 250 IV ×2 (00:05→11:18)
[2023-07-15 00:32] LABS: Glucose - Point of Care 112 mg/dl (70-99)
[2023-07-15 00:45] LABS: Hematocrit 32.4 % (39.0-52.0); Hemoglobin 11.1 g/dL (13.0-18.0)
[2023-07-15 00:47] LABS: B.E. 0.7 mmol/L; HCO3 25.4 mmol/L (21-28); Ionized Calcium 1.13 mMOL/L (1.15-1.33); O2 Saturation % 97.8 % (94-98); PCO2 40 mmHg (35-48); PO2 107 mmHg (83-108); pH 7.41 (7.35-7.45)
[2023-07-15 01:01] LABS: Potassium 3.8 mmol/L (3.5-5.1)
[2023-07-15] MEDS: KCL 50 IV (01:21)
[2023-07-15 01:25] LABS: Glucose - Point of Care 110 mg/dl (70-99)
[2023-07-15] MEDS: SUBLIMAZE 50 MCG IV ×5 (01:35→13:38)
[2023-07-15] MEDS: CALCIUM CHLORIDE 10% SYRINGE 60 MG IV (01:37)
[2023-07-15 02:14] LABS: Glucose - Point of Care 156 mg/dl (70-99)
[2023-07-15] MEDS: ZOSYN 50 IV ×4 (02:20→20:07)
[2023-07-15] MEDS: DIPRIVAN 100 IV ×6 (02:30→23:34)
[2023-07-15 02:37] LABS: APTT 83.6 Sec (23.4-35.0)
[2023-07-15 03:05] LABS: Glucose - Point of Care 120 mg/dl (70-99)
--- NOTE | 2023-07-15 03:44 | PTCARENOTE ---
While doing mouth care, pt found to have blood to roof of mouth and chipped front tooth. Clovis RAMIRES made aware.
[2023-07-15] MEDS: SUBLIMAZE 100 IV ×2 (05:00→17:14)
[2023-07-15 05:04] LABS: Glucose - Point of Care 112 mg/dl (70-99)
[2023-07-15 05:07] LABS: HCO3 25.1 mmol/L (21-28); O2 Saturation % 98.5 % (94-98); PCO2 37 mmHg (35-48); PO2 108 mmHg (83-108); pH 7.44 (7.35-7.45)
[2023-07-15 05:10] LABS: Hematocrit 30.4 % (39.0-52.0); Hemoglobin 10.7 g/dL (13.0-18.0); Mean Corp Hgb Conc. 35.2 g/dL (33.0-37.0); Mean Corpuscular Hgb 28.5 pg (27.0-31.0); Mean Corpuscular Volume 81.1 fL (80.0-94.0); Mean Platelet Volume 10.4 fL (7.4-10.4); Platelet Count 205 10^3/uL (130-400); Red Blood Cell Count 3.75 10^6/uL (4.70-6.10); Red Cell Dist. Width 13.5 % (11.5-14.5); White Blood Cell Count 13.6 10^3/uL (4.8-10.8)
[2023-07-15 05:11] LABS: Hematocrit 31.3 % (39.0-52.0); Hemoglobin 10.6 g/dL (13.0-18.0)
[2023-07-15 05:12] LABS: O2 Therapy 100%
[2023-07-15 05:13] LABS: Ionized Calcium 1.24 mMOL/L (1.15-1.33)
[2023-07-15] MEDS: VANCOCIN 275 MG IV ×2 (05:27→17:36)
[2023-07-15 05:40] LABS: Magnesium 2.1 mg/dl (1.6-2.3)
[2023-07-15 05:55] LABS: ALT (SGPT) 37 U/L (0-50); AST (SGOT) 238 U/L (17-59); Alkaline Phosphatase 51 U/L (38-126); Blood Urea Nitrogen 20 mg/dl (9-20); Calcium 9.1 mg/dl (8.4-10.2); Carbon Dioxide 24 mmol/L (22-30); Chloride 101 mmol/L (98-107); Estimated Creatinine Clearance 84 ml/min; Glucose 130 mg/dl (70-99); HDL Cholesterol 29 mg/dl; LDL Cholesterol, Calculated 81 mg/dl; Potassium 3.6 mmol/L (3.5-5.1); Sodium 133 mmol/L (135-145); Total Cholesterol 139 mg/dl (50-199); Total Protein 5.2 g/dl (6.3-8.2); Triglyceride 147 mg/dl (10-149); Very Low Density Lipoprotein 29 mg/dl (0-30); eGFR > 60.00
--- NOTE | 2023-07-15 06:30 | PTCARENOTE ---
Pt with frequent alarming of high PIP, oxygen sat dropped to 88%. Respiratory at bed side for deep suctioning and increase of FiO2 to 45%, pulse ox 93%. Per CVPA Tsilina will obtain repeat ABG at 0700.
--- NOTE | 2023-07-15 06:55 | W.PN.CD ---
Addendum entered and electronically signed by Ramírez Arroyo DO 07/15/23 09:41:
I was actively managing the Impella LVAD.
[place] on code [id number].
Original Note:
Today's Communication / Plan
-
Wean Impella to explant.
Maintain CI > 2.2, MAP > 65, Candis > 0.9.
Wean vent.
Continue oseltamivir.
Continue infectious surveillance.
Impression / Plan
-
Impression/Plan: 67 y/o male with HTN, HLD, and IDDM presenting with inferoposterior STEMI and fever, found to have multivessel disease s/p PCI to ostial LCx with post hoc coronary lithotripsy with cardiogenic shock requiring Impella placement and
influenza A.
#STEMI
-Acute.
-S/P Successful PCI of ostial LCx (Medtronic Thuan Breathitt 2.5 x 12 PRAKASH, post dilated with 2.5 NC balloon to 18 JOSE ANTONIO).
-IVUS showed underexpansion in proximal margin requiring post hoc intracoronary lithotripsy (2.5 x 12 Shockwave balloon) and aggressive post dilation (2.75 x 12 NC balloon to 16 JOSE ANTONIO).
-Troponin up to 38.
-DAPT with ASA and ticagrelor for at least 12 months followed by aspirin indefinitely.
#Shock
-Acute, mixed picture, improving.
-Impella CP via RCFA access and norepinephrine.
-CI now 2.9 (up form 1.8). Lactic acid went up to 4.4, but then normalized. Candis 1.3. FIELD IDENTIFICATION SPECIALIST 0.86 Pak.
-H/H slowly drifting. I suspect that he is oozing around the Impella site.
-Wean Impella with goal to remove today.
-Keep CI > 2.2, MAP > 65. Ok to increase norepinephrine if needed as Impella is weaned.
-Maintain volume expansion given a partially septic picture due to influenza. Keep CVP 8-12.
#Residual CAD
-Chronic.
-pLAD 90%, mLAD 70% --> long 50%, RCA ASTRONAUT MISSION SPECIALIST.
-Per CULPRIT SHOCK trial, LAD revascularization deferred at the time of presentation.
-Discussion with CT surgery regarding optimal method/timing of LAD/RCA revascularization and holding DAPT.
-High dose, high potency statin.
#Influenza A
-Acute.
-Continues to be febrile.
-BCx show NGTD.
-Continue oseltamivir.
#HTN
-Chronic.
-All meds on hold due to hypotension/shock.
#HLD
-Chronic.
Critical Care Time = 40 minutes.
Subjective/Interval History:
Patient did reasonably well overnight.
CI has progressively improved.
BP is stable.
H/H is slowly drifting down.
DATA:
Cardiac Catheterization/PCI, 07/14/2023:
CONCLUSIONS:
1.� Right dominant circulation with a ASTRONAUT MISSION SPECIALIST of the proximal RCA, a 90% proximal LAD lesion lesion, a 70% mid LAD lesion, a long, 50% distal LAD lesion and a hazy, densely calcified 90% ostial circumflex lesion immediately proximal to the bifurcation
of the circumflex and primary obtuse marginal, status post successful IVUS guided PCI (Medtronic Thuan Breathitt 2.5 x 12 PRAKASH, postdilated with a 2.5 NC balloon to 18 jose antonio).
2.� Post hoc intracoronary lithotripsy and postdilation after IVUS revealed underexpansion of the proximal stent (shockwave 2.5 x 12 lithotripsy balloon, 2.75 x 8 NC balloon to 16 jose antonio).
3.� Normal left ventricular size with severe hypokinesis/akinesis of the lateral/anterolateral wall and moderately depressed systolic function (LV ejection fraction 35-40% on ventriculography).
4.� Severely elevated filling pressures with depressed cardiac function, consistent with cardiogenic shock (LVEDP = 33 mmHg, cardiac index 1.9 L/min/m�).
5.� Status post successful placement of a percutaneous left ventricular assist device (Abiomed Impella CP) via right common femoral approach.
6.� Status post right heart catheterization via right internal jugular approach.
TTE, 07/14/2023:
CONCLUSIONS
�Normal left ventricular chamber size with lateral akinesis and mildly reduced
�left ventricular systolic function. Left ventricular ejection fraction is 40%
�on Impella CP.
�Grossly normal right ventricular size and systolic function.
�Probably normal atria.
�Valves not assessed.
�Impella present in aortic root .
�
�No prior study available for comparison.
Physical Exam
Vital Signs/Labs
Vital Signs
Temp Pulse Resp BP Pulse Ox
39.1 C H 122 18 72/52 93
07/15/23 06:00 07/15/23 06:00 07/15/23 06:00 07/14/23 23:12 07/15/23 06:29
07/13/23 07/14/23 07/15/23
11:59 11:59 11:59
Actual Weight 87.9 kg
07/15/23 04:26
PT 15.3 Sec (11.4-14.6) H 07/14/23 20:25
INR 1.21 07/14/23 20:25
APTT 83.6 Sec (23.4-35.0) H 07/15/23 02:07
Magnesium 2.1 mg/dl (1.6-2.3) 07/15/23 04:26
Triglycerides 147 mg/dl (10-149) 07/15/23 04:26
LDL Cholesterol, Calc 81 mg/dl 07/15/23 04:26
VLDL Cholesterol, Calc 29 mg/dl (0-30) 07/15/23 04:26
HDL Cholesterol 29 mg/dl 07/15/23 04:26
LAB Results
07/14/23 07/14/23 07/15/23
13:58 17:50 00:19
Troponin I 0.167 H* 9.900 H* D 36.800 H* D
Physical Exam
Constitutional: No acute distress and Comfortable
EENT: Anicteric, Moist mucous membranes and Other (ET tube in place.)
Cardiovascular: Rhythm & rate is regular, Pedal edema is absent, S1S2 is normal and Murmur/rub/gallop absent
Respiratory: Respiratory effort normal, Lungs clear to auscul., Wheeze Absent, Crackles Absent and Rhonchi Absent
GI: Soft, Distention absent, Flat, Non tender and Normal bowel sounds
Neuro/Psych: Other (Intubated/sedated.)
Other: Cath Site (Right femoral site is boggy. A soft hematoma is present.)
Data Reviewed
-
Date of Service: July 15, 2023
Medical Decision Making: Reviewed Test Results, Test Interpretation and Review of Case with other Provider
EKG: Tracing Personally Visualized and interpreted and Report Reviewed by me
Echo: Tracing Personally Visualized and interpreted and Report Reviewed by me
X-Ray/CT/US/MRI/NUC/PET: Image Personally Visualized and interpreted and Report Reviewed by me
Medical Tests (PFT, Pathology etc): Image Personally Visualized and interpreted, Report Reviewed by me, Discussed with Physician, Discussed with Nurse, Discussed with Patient and Discussed with Family
Labs: Labs Reviewed by me
[2023-07-15 07:05] LABS: Glucose - Point of Care 84 mg/dl (70-99)
--- NOTE | 2023-07-15 07:20 | W.PN.INTV ---
Addendum entered and electronically signed by Paras Felix MD 07/15/23 10:27:
MDT round
Case revisited
Fever trending down: etiology multifactorial (AMI, influenza, lines), continue atb/a-viral coverage, follow cx results
Continue hemodyn support: weaning down impella, goal to discontinue today
Continue sedation and MV until impella out and further hemodyn stabilization
Insulin gtt
IV heparin protocol adjusted to impella
Original Note:
Today's Communication / Plan
Recommendations
ACV
Tamiflu
Follow cxs
Hemodyn support
IV hep/amiod
Assessment
-
Assessment:
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 At time of ER visit, 18hrs of constant chest tightness associated with VARELA. At ER, not in resp distress, POx 98%, normal BP, tachycardic, afebrile, EKG with ST
depression from V2-6, elevated troponin. Taken to cardiac cath tech, during cardiac cath he presented hypoxemia and then vomit, anesthesia proceeded to intubation to protect airway. H&P and C report pending, needed circulatory support device (impella). D/w
Dr Arroyo at bedside, stented high degree lesion at Cx
Impression:
AMI
S/p R/LHC 07-14-23: Cx stent, lithotripsy of underexpanded segment of Cx stent
Acute respiratory failure during prep for heart catheterization: intubated by Anesthesia
Influenza A
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
IDDM, on insulin pump
Sinus arrhythmia
L rotator cuff repair
Nonsmoker
Plan:
Adm to CVICU after R/LHC for AMI, needed intubation and circulatory support device
Continue ACV
Current settings 14-500-5-0.45 (POx 99%)
Titrate to keep resp comfort and POx>=94%
Well synchronized to ACV at time of visit
For SBT once more hemodyn stable
Sedation/analgesia
Propofol/fentanyl gtts
Continue impella, IV hep
Continue NE, amiodarone gtt
Monitor SIERRA pulses
Monitor R groin hematoma, appears unchanged
Hemodynamic mgmt
ASA, ticagrelor to continue
Statin to continue
Blood cxs pending
MRSA screening pending
Resp secs cx pending
COVID negative
Influenza A positive
Empiric atbs: vanco/zosyn
Insulin gtt for glycemic control
PPI for GI prophylaxis
Prognosis guarded
Critical care time: 35 min
Diagnostic tests:
CXR 07-14-23: portable, no comparison films, pulm vasc congestion with bat wing pattern, no pneumothorax or pleural effusions. ET, GT. RIJ SG
CXR 07-15-23: portable, improved pulm parenchymal and vasc congestion. ET/GT. RIJ SGC. Impella
TTE 07-14-23:
CONCLUSIONS
Normal left ventricular chamber size with lateral akinesis and mildly reduced left ventricular systolic function. Left ventricular ejection fraction is 40% on Impella CP.
Grossly normal right ventricular size and systolic function.
Probably normal atria.
Valves not assessed.
Impella present in aortic root .
Subjective Dataa
Subjective Data
Date of Service:
Date of Service: July 15, 2023
Chief Complaint: Guide Changer Follow Up
Subjective:
Continues on MV
Episode of desaturation earlier today, resolved after suctioning of ETT
Continues on ACV
On sedation, pressors, impella
Started tamiflu for positive influenza test
Review of Systems
General: Unobtainable - Sedation
Objective Data
Data Reviewed
Vital Signs / I&O / Oxygen:
Vital Signs
Temp Pulse Resp BP Pulse Ox
101.5 F H 82 14 72/52 97
02/02/24 07:00 07/15/23 07:00 07/15/23 07:00 07/14/23 23:12 07/15/23 07:00
Intake and Output
07/14/23 07/15/23 07/16/23
06:59 06:59 06:59
Intake Total 2173.5 / 2263.0 89.5 / 89.5
Output Total 2024
Balance 148.5 / 213.0 64.5 / 64.5
SaO2 [A/C] 93
SaO2 97
Physical Exam
General: Respiratory Distress (n)
HEENT: Normocephalic
Cardiovascular: Regular Rhythm and Peripheral Edema (n)
Respiratory: Clear, Crackles (subtle) and Stridor (n)
GI: Soft and Non Distended
Neurology: Other (sedated)
Skin: Dry
Labs/Micro/Reports
Lab Data
07/15/23 04:26
Laboratory Results
07/14/23 07/14/23 07/14/23
13:58 14:44 15:49
PT 14.4
INR 1.11
APTT
pH 7.41 7.34 L
pCO2 38 40
pO2 60 L 166 H
HCO3 24.1 21.6
O2 Delivery Level Not Reportable
07/14/23 07/14/23 07/14/23
17:53 17:55 20:00
PT
INR
APTT 187.9 H*
pH 7.41 Cancelled
pCO2 35 Cancelled
pO2 122 H Cancelled
HCO3 22.2 Cancelled
O2 Delivery Level Cancelled
07/14/23 07/14/23 07/15/23
20:25 22:48 00:00
PT 15.3 H
INR 1.21
APTT 43.6 H
pH 7.30 L 7.41 Cancelled
pCO2 45 42 Cancelled
pO2 99 150 H Cancelled
HCO3 22.1 26.6 Cancelled
O2 Delivery Level Cancelled
07/15/23 07/15/23 07/15/23
00:20 02:07 04:26
PT
INR
APTT 83.6 H
pH 7.41 7.44
pCO2 40 37
pO2 107 108
HCO3 25.4 25.1
O2 Delivery Level Not Reportable 100%
Microbiology
07/14/23 18:22 Nasal Swab Influenza Types A & B (TIANA) - Final
Influenza A Positive, NAAT
--- NOTE | 2023-07-15 07:30 | PTCARENOTE ---
Patient received from security shift supervisor intubated and sedated in bed. NSR via cm, SaO2 @ 98% on FiO2 45%. Pupils equal b/l, sluggish 3mm. RIJ Cordis/[place] catheter, R radial arterial lines present - leveled, flushed, and calibrated w/good waveforms
returned. Impella VAD via RFA augmenting at P6, site appears ecchymotic, hematoma present w/FemStop device in place. Distal pulses obtainable via doppler. Warren catheter to gravity. See work list for full list of interventions performed, assessment,
and intravenous infusions and titrations.
[2023-07-15 07:43] LABS: ACT-LR - POC > 397 Seconds (116-155)
[2023-07-15 08:11] LABS: B.E. -0.5 mmol/L; HCO3 24.2 mmol/L (21-28); O2 Saturation % 98.4 % (94-98); O2 Therapy 100; PCO2 39 mmHg (35-48); PO2 118 mmHg (83-108)
[2023-07-15 08:14] LABS: Hematocrit 30.5 % (39.0-52.0); Hemoglobin 10.5 g/dL (13.0-18.0)
[2023-07-15] MEDS: PROTONIX IV 40 MG IV (08:14)
[2023-07-15] MEDS: NSS (PRESERVATIVE FREE) 10 ML IV (08:15)
[2023-07-15] MEDS: LOW STRENGTH ASPIRIN 81 MG TUBE (08:15)
[2023-07-15] MEDS: MIRALAX 17 GRAMS TUBE (08:15)
[2023-07-15] MEDS: BRILINTA 90 MG TUBE ×2 (08:15→20:00)
--- NOTE | 2023-07-15 08:25 | PTCARENOTE ---
Dr. Arroyo at bedside, updated to status. Impella P-level decreased to P4.
[2023-07-15 08:27] LABS: Lactic Acid 0.9 mmol/L (0.7-2.0)
[2023-07-15 08:56] LABS: Glycohemoglobin (HgbA1c) 7.2 % (4.0-5.6)
[2023-07-15] MEDS: TAMIFLU 75 MG PO ×2 (08:56→20:00)
[2023-07-15 09:06] LABS: Glucose - Point of Care 120 mg/dl (70-99)
--- NOTE | 2023-07-15 09:18 | PN.DE.MGMTRT ---
Insulin Management
- -
07/15/2023: Diabetes Management Consult
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
Pt unable to interview, at bedside, reports that pt routinely follows with Endo Dr. Abdi in [place] and that he was using insulin via V-GO 20 and CGM- Priscilla 2 but she is unable to provide any further informations regarding pt's OP
diabetes regimen. Contacted both Endo-Dr. Abdi and PCP- Dr. Geller offices to gather more information, unfortunately both offices are closed today.
A1C 7.3%, Cr 0.9 eGFR >60. Pt remains intubated in critical condition.
Currently on the glycemic protocol, glucose 79 to 285, requiring 0.3 to 10 units of insulin/hr
Cont current regimen with continuos insulin infusion, reassess readiness to transition to SQ insulin upon extubation.
Give Lantus 15 units 2 hrs before stopping insulin drip.
Start basal/ bolus with corrective SQ insulin if diet is started, otherwise, use basal insulin and Low corrective insulin Q 6hrs if pt remains NPO.
Diabetes History
- -
Type of Diabetes: 2 requiring insulin
Pre-Admission Diabetes Regimen
07/14/23 07/14/23 07/14/23
13:58 17:49 20:25
Creatinine 1.0 0.8 0.9
07/15/23
04:26
Creatinine 0.9
Lab Results
Hemoglobin A1c 7.2 % (4.0-5.6) H 07/15/23 04:26
Insulin Pump Settings
IP Diabetes Regimen
07/14/23 07/14/23 07/14/23
13:58 17:47 17:49
Glucose 181 H 233 H
POC Glucose 244 H
07/14/23 07/14/23 07/14/23
19:20 20:25 20:35
Glucose 179 H
POC Glucose 285 H 189 H
07/14/23 07/14/23 07/15/23
21:53 23:13 00:30
Glucose
POC Glucose 182 H 79 112 H
07/15/23 07/15/23 07/15/23
01:24 02:12 03:04
Glucose
POC Glucose 110 H 156 H 120 H
07/15/23 07/15/23 07/15/23
04:26 05:02 07:03
Glucose 130 H
POC Glucose 112 H 84
07/15/23
09:05
Glucose
POC Glucose 120 H
Meal type: Breakfast
Patient Education
--- NOTE | 2023-07-15 09:20 | PTCARENOTE ---
Dr. Arroyo back to bedside to evaluate patient response to decreased P-level. New CI obtained. P-level decreased to P3 by physician.
[2023-07-15 09:27] LABS: APTT 73.8 Sec (23.4-35.0)
[2023-07-15 11:02] LABS: Glucose - Point of Care 123 mg/dl (70-99)
--- NOTE | 2023-07-15 11:10 | CON.ID ---
Consultation
-
Date/Time Consultation Requested: July 15, 2023 0815
Date/Time Consultation Performed: Fever second 2023 1110
Requesting Provider: Dr. Anjel Thompson
Performing Provider: Dr. Allie Jimenes
Reason for Consultation: Fevers, shock, Flu A
Chief Complaint / Past History
Chief Complaint
Chest tightness
History of Present Illness
History obtained from patient's at bedside since patient is currently intubated and unable to provide any meaningful history. 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
then chest tightness the night prior to admission. No fevers at the time. His urged him to be evaluated in the ER but patient initially declined. Chest pain persisted and he finally agreed to come to the ER for prefers. He was febrile 102.
White count of 13.3,. Hypotensive blood pressure 63/44. Influenza A positive. EKG showed ST elevation [place], troponin positive. Echocardiogram showed EF 40%. He was taken to the Wet End Operator and found to have multivessel coronary disease status post
stent and left ventricular assisted device Impella placed. Patient's hemodynamic studies suggestive of cardiogenic shock. While in the lab patient became hypoxic and he did vomit. He was intubated for airway protection. He is currently on
oseltamivir and vancomycin, Zosyn. The Impella device will be removed today. Her he is not vaccinated against influenza. He uses holistic approach. No flulike symptoms prior to admission. During her son recently with cough.
Past History
Additional Past Medical History:
DM on insulin
HTN
Sinus arrhythmia
Additional Past Surgical History:
Left RTC repair
Allergy History:
No Known Allergies Allergy (Unverified 07/14/23 16:22)
Medications Reviewed: Yes
Current Antibiotics:
Oseltamivir
Vancomycin
Zosyn
Social History
Tobacco: Non-Smoker
Alcohol: None
Drug: None
Personal:
Living: With Family
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
Family History
Family History: Not Pertinent
Review of Systems
Vital Signs
Temp Pulse Resp BP Pulse Ox
100.5 F H 72 14 76/53 100
07/15/23 11:00 07/15/23 11:00 07/15/23 11:00 07/15/23 11:00 07/15/23 11:00
Selected Entries
07/15/23
06:00
Temp 102.3 F H
Physical Exam
Physical Exam
Constitutional: Acutely Ill
Eyes: No Conjunctival Hemorrhage and Other (sclera mild icterus)
Cardiovascular: Regular Rate and S1/S2
Pulmonary: Clear (anteriorly)
Gastrointestinal: Soft, Non Tender, Non Distended and Normal Bowel Sounds
Extremities: Other (cool extremities); Negative Edema
Lines: CVP (intact)
Lab / Diagnostic Study Results
07/15/23 04:26
Abs Immat Gran (auto) 0.1 10^3/uL (0-0.05) H 07/14/23 17:50
Absolute Neuts (auto) 11.2 10^3/uL (1.4-6.5) H 07/14/23 17:50
Absolute Lymphs (auto) 0.6 10^3/uL (1.2-3.4) L 07/14/23 17:50
Absolute Monos (auto) 1.3 10^3/uL (0.1-0.6) H 07/14/23 17:50
Absolute Basos (auto) 0.1 10^3/uL (0-0.2) 07/14/23 17:50
Immature Gran % 0.5 % (0-0.5) 07/14/23 17:50
Neutrophils % 84.2 % (42.2-75.2) H 07/14/23 17:50
Lymphocytes % 4.6 % (20.5-51.1) L 07/14/23 17:50
Monocytes % 10.0 % (1.7-9.3) H 07/14/23 17:50
Eosinophils % 0.2 % (0-6) 07/14/23 17:50
Basophils % 0.5 % (0-2) 07/14/23 17:50
PT 15.3 Sec (11.4-14.6) H 07/14/23 20:25
INR 1.21 07/14/23 20:25
Lactic Acid 0.9 mmol/L (0.7-2.0) 07/15/23 07:59
Ur Squamous Epith Cells 0-2 /LPF (Few) 07/14/23 18:19
Microbiology Results
Micro:
07/15/23 04:26 Nasal Screen MRSA (PCR) - Final
Nose MRSA not detected - performed by PCR methodology.
07/15/23 08:42 Respiratory Culture - Pending
Endotracheal Gram Stain - Pending
07/14/23 18:22 Influenza Types A & B (TIANA) - Final
Nasal Swab Influenza A Positive, NAAT
07/14/23 18:32 Blood Culture - Pending
Blood/Venous
07/14/23 18:18 Blood Culture - Pending
Blood/Venous
07/14/23 CXR: Bilateral perihilar airspace opacities compatible with pulmonary edema.
Assessment / Plan
# STEMI with cardiogenic shock
- 07/14/23 s/p cardiac cath, PCI/stent, Impella device placement
# Acute Influenza infection
-Unvaccinated
- Agree with Oseltamivir to complete 5 days.
# SIRS (fever, wbc, shock) due to STEMI.
- fever from Flu and STEMI
-CXR no infiltrate
- If blood cx's negative, dc Vancomycin and Zosyn.
# IDDM, Aic 7.2
--- NOTE | 2023-07-15 11:14 | PHA.VAN.FU ---
Vancomycin Assessment / Plan
- Assessment
Renal Function: Stable
WBC's are: Trending Up
In the past 24 hrs, patient has been: Febrile (T max 102.3 - 07/15/23 0600)
Concomitant Antimicrobials: piperacillin/tazobactam, oseltamivir
- Dosing Plan
Continue: vancomycin 1250 mg q12h - first dose 07/15 599
- Monitoring Plan
No level(s) ordered at this time: consider levels after 1800 dose 07/16/23
- Follow Up
Pharmacy will continue to follow.
Vancomycin Follow UP
- -
Patient Age: 67
Patient Sex: Male
Vancomycin Day #: 2
Indication: Pulmonary/Respiratory
Requesting Provider: Dr. Curtis
Pertinent Antimicrobial Allergies:
no pertinent antimicrobial allergies
Height / Weight:
Height 5 ft 7 in
Actual Weight 87.9 kg
- Vital Signs / Lab Results
Temp Pulse Resp BP Pulse Ox
100.5 F H 72 14 76/53 100
07/15/23 11:00 07/15/23 11:00 07/15/23 11:00 07/15/23 11:00 07/15/23 11:00
Lab Results - Hematology
07/14/23 07/14/23 07/15/23
13:58 17:50 04:26
WBC 11.5 H 13.3 H 13.6 H
Lab Results - Chemistry
07/14/23 07/14/23 07/14/23
13:58 17:49 20:25
BUN 22 H 20 22 H
Creatinine 1.0 0.8 0.9
Estimated Creat Clear 75 94 83
Albumin 4.7 3.8
07/15/23
04:26
BUN 20
Creatinine 0.9
Estimated Creat Clear 84
Albumin 3.0 L
0207/14/23 07/14/23
17:51 20:25 20:32
Lactic Acid 1.2 4.4 H* Cancelled
07/14/23 07/15/23 07/15/23
22:02 00:21 04:26
Lactic Acid Cancelled 1.0 1.0
07/15/23
07:59
Lactic Acid 0.9
Lab Results - Urine
07/14/23
18:19
Urine Nitrite (Reflex) Negative
Leukocyte Esterase Rfl Negative
Ur Squamous Epith Cells 0-2
Microbiology Results
07/15/23 04:26 Nasal Screen MRSA (PCR) - Final
Nose MRSA not detected - performed by PCR methodology.
07/14/23 18:22 Influenza Types A & B (TIANA) - Final
Nasal Swab Influenza A Positive, NAAT
[2023-07-15] MEDS: NOVOLIN R INSULIN INFUSION 100 IV (11:48)
--- NOTE | 2023-07-15 11:49 | CM ---
CM following for DC planning needs.
Met w/ spouse at bedside. Spouse informs that patient/spouse reside in a private, 2 story home w/ their 19 yo son. Functionally, patient is quite indep. at baseline w/ ADLs, mobility without use of any assisted device. 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
Pt. has Rx plan and uses [facility] on [address] in [place] for prescription needs.
CM to follow for DC planning needs.
[2023-07-15 12:16] LABS: Hematocrit 29.5 % (39.0-52.0); Hemoglobin 10.2 g/dL (13.0-18.0)
[2023-07-15 12:18] LABS: pH 7.46 (7.35-7.45)
[2023-07-15 12:28] LABS: B.E. 0.6 mmol/L; HCO3 24.2 mmol/L (21-28); Lactic Acid 0.8 mmol/L (0.7-2.0); O2 Saturation % 98.8 % (94-98); PCO2 34 mmHg (35-48); PO2 154 mmHg (83-108)
[2023-07-15 12:29] LABS: O2 Therapy %Oxygen/Room Air 100
[2023-07-15 13:00] LABS: Glucose - Point of Care 98 mg/dl (70-99)
--- NOTE | 2023-07-15 13:15 | PTCARENOTE ---
Antony d/c'd by Dr. Arroyo. Manual pressure maintained x 35 minutes, FemStop reapplied. Distal pulses obtainable via doppler.
--- NOTE | 2023-07-15 13:21 | W.PN.HOSP.TC ---
Today's Communication/Plan
-
see outlined plan
Assessment / Plan
Assessment / Plan
Assessment:
STEMI
Cardiogenic shock status post Impella
- R/LHC: �Right dominant circulation with a ACQUISITIONS LOGISTICS ANALYST of the proximal RCA, a 90% proximal LAD lesion lesion, a 70% mid LAD lesion, a long, 50% distal LAD lesion and a hazy, densely calcified 90% ostial circumflex lesion immediately proximal to the
bifurcation of the circumflex and primary obtuse marginal
- s/p stent of OM and lithotripsy
- post cath Echo: Normal left ventricular chamber size with lateral akinesis and mildly reduced left ventricular systolic function. Left ventricular ejection fraction is 40%. normal RV function.
- continue ASA/Brilinta/Statin
- continue IV heparin - requires intensive monitoring
- continue IV Amiodarone - requires intensive monitoring
- CT surgery consult
- s/p Impella currently explanted. Remains on Levophed which requires intensive monitoring
- follow CTS and Cardiology management
R groin hematoma
- management per Interventional cards
VDRF during prep for cath
Sepsis likely from influenza A
- pulmonary following for vent management
- sedation per ICU/pulm
- ID following
- continue Tamiflu via enteric tube
- empiric Vanco/Zosyn pending cultures
IDDM
- Patient appears to be on JAZMIN 20 insulin patch which is held
- continue critical care glycemic protocol
- PLUG SHAPER HAND consulted
Essential hypertension
- hold lisinopril
DVT ppx: Heparin drip
Code: Full
Total Critical Care Time 39 minutes. I was immediately available to the patient and staff. I personally examined, reviewed labs, diagnostic images/reports, interpretations, treatment plans, discussed patient care with other providers and family
or caregivers (if patient is unable to make decisions), entered orders as appropriate and documented the medical record.
Anticipated Discharge: > 48 hours
Subjective/Interval History
-
Date of Service: July 15, 2023
Impella being explanted
remains intubated
remains with fevers in setting of influenza A
Objective Data
-
Labs:
Laboratory Results
07/15/23 07/15/23 07/15/23
02:07 04:26 04:26
WBC 13.6 H
Hgb 10.7 L 10.6 L
Hct 30.4 L
Plt Count
APTT 83.6 H
HCO3
Sodium
Potassium
Chloride
Carbon Dioxide
BUN
Creatinine
Glucose
Calcium
Total Bilirubin
AST
ALT
Alkaline Phosphatase
07/15/23 07/15/23 07/15/23
04:26 07:30 07:59
WBC
Hgb 10.5 L
Hct 31.3 L 30.5 L
Plt Count 205 D
APTT
HCO3 25.1 Cancelled 24.2
Sodium 133 L
Potassium 3.6
Chloride 101
Carbon Dioxide 24
BUN 20
Creatinine 0.9
Glucose 130 H
Calcium 9.1
Total Bilirubin 2.0 H
AST 238 H
ALT 37
Alkaline Phosphatase 51
07/15/23 07/15/23 07/15/23
08:59 12:00 12:03
WBC
Hgb Cancelled 10.2 L
Hct Cancelled 29.5 L
Plt Count
APTT 73.8 H
HCO3 24.2
Sodium
Potassium
Chloride
Carbon Dioxide
BUN
Creatinine
Glucose
Calcium
Total Bilirubin
AST
ALT
Alkaline Phosphatase
07/15/23 07/15/23 07/15/23
16:00 18:00 20:00
WBC
Hgb Pending Cancelled Pending
Hct Pending Cancelled Pending
Plt Count
APTT
HCO3
Sodium
Potassium
Chloride
Carbon Dioxide
BUN
Creatinine
Glucose
Calcium
Total Bilirubin
AST
ALT
Alkaline Phosphatase
Vital Signs:
Vital Signs
Temp Pulse Resp BP Pulse Ox
101.6 F H 114 16 89/56 96
07/15/23 13:00 07/15/23 13:00 07/15/23 13:00 07/15/23 13:00 07/15/23 13:00
I&O
07/14/23 07/15/23 07/16/23
06:59 06:59 06:59
Intake Total 2173.5 / 2263.0 646.2 / 646.2
Output Total 2024 / 2049 525 / 525
Balance 148.5 / 213.0 121.2 / 121.2
Physical Exam
-
General: Intubated
HEENT: Normocephalic and Atraumatic
Respiratory: Negative Wheezes
Cardiac: Regular Rhythm and S1/S2
GI: Soft
Neuro: Sedated
Psych: Calm
Data Reviewed
-
Critical Care Time (in minutes): 39
Labs: Labs Reviewed by me
[2023-07-15] MEDS: VERSED 2 MG IV (13:38)
[2023-07-15] MEDS: OFIRMEV 100 IV (14:11)
[2023-07-15 15:02] LABS: Glucose - Point of Care 112 mg/dl (70-99)
[2023-07-15 16:08] LABS: B.E. 0.1 mmol/L; HCO3 24.7 mmol/L (21-28); Hematocrit 29.7 % (39.0-52.0); Hemoglobin 10.1 g/dL (13.0-18.0); PCO2 39 mmHg (35-48); PO2 110 mmHg (83-108); pH 7.41 (7.35-7.45)
--- NOTE | 2023-07-15 16:15 | CONSULT.CT ---
Consultation
-
Date/Time Consultation Requested: 07/15/23 1545
Date/Time Consultation Performed: 07/15/23 1600
Requesting Provider: Dr. Thompson
Performing Provider: Shea HART for Dr.Tran GILLETTE
Reason for Consultation: CABG Eval
Patient History
Physicians
Family Physician: Unknown
Outpatient Wheel Roller: Unknown
Inpatient Wheel Roller: Ramírez Arroyo
History of Present Illness
67-year-old male with past medical history HTN, HLD, NIDDM presented to [facility] emergency room on 07/14 with chest tightness and indigestion after eating dinner the night prior. Upon arrival to the emergency room he developed 8 out of 10 chest
pain. EKG while in the ER showed ST elevations and he was started on heparin, Brilinta, and aspirin and was urgently taken to the Bus Driver Supervisor. While in the Bus Driver Supervisor, patient was acutely hypoxic and was vomiting profusely. Due to the vomiting patient
was immediately intubated so the airway was secured. During the left heart cath patient's blood pressure was borderline with an LVEDP of 35 and patient was given Lasix and an Impella CP was placed due to his poor ventricular function. He also
received a successful percutaneous coronary intervention to an ostial left circumflex, however, his LAD had diffuse disease and his RCA was found to be chronically occluded, and the RPDA was supplied by collaterals from the LAD and circumflex.
Patient returned to the CVICU intubated and sedated with Impella support. Of note, patient was found to be influenza positive. Overnight he was on Levophed and stable with Impella support. On 07/15/23, patient's Impella support was weaned down to
P2 and the decision was made by Dr. Arroyo to discontinue the device bedside. CT surgery was consulted for eventual revascularization surgery.
Past Medical History
Past Medical History: CAD, HTN, Hypercholesterolemia, NIDDM and ND
Past Surgical History
Past Surgical History: None
Family History
Mother: N/A
Father: N/A
Family Medical History: Unable to Obtain
Social History
Alcohol: Other (Unable to obtain secondary to patient being intubated and sedated)
Drug: Other (Unable to obtain secondary to patient being intubated and sedated)
Tobacco: Other (Unable to obtain secondary to patient being intubated and sedated)
Personal:
Living: With Spouse
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
Allergies
Allergy/AdvReac Type Severity Reaction Status Date / Time
No Known Allergies Allergy Unverified 07/14/23 16:22
Home Medications
Medication Instructions Recorded Confirmed Type
lisinopril 20 mg tablet 20 mg PO DAILY 07/14/23 History
sub-q insulin device, 20 unit 07/14/23 History
(V-GO 20 device)
Review of Systems
-
Unable to obtain full review of systems at this time due to: Acuity and Patient Intubation
Physical Exam
Vital Signs
Temp 100.6 F H 07/15/23 16:00
Temp route: Core 07/15/23 16:00
Pulse 82 07/15/23 16:00
Rhythm: Normal sinus rhythm 07/15/23 16:00
With- PVC's Monomorphic, PVC's Couplets 07/15/23 08:47
Resp Rate 14 07/15/23 16:00
Blood pressure 83/48 07/15/23 15:00
Blood pressure extremity used: Left upper arm 07/14/23 13:38
Position: Lying 07/15/23 07:00
MAP (cuff-Suhas Monitor) 60 07/15/23 15:00
MAP 67 07/14/23 20:45
SaO2 100 07/15/23 16:00
Oxygen Mode of Delivery Ventilator 07/15/23 16:00
Other oxygen comment 60 07/14/23 20:45
% Oxygen delivered 40 07/15/23 16:00
Can the patient verbally communicate their pain? No 07/15/23 13:18
Pain scale rating: Pt states unable to rate 07/14/23 19:59
Arterial Systolic Pressure 89 07/15/23 16:00
Arterial Diastolic Pressure 39 07/15/23 16:00
MAP (J-Zxzi-Mjmhboc Monitor) 54 07/15/23 16:00
MAP A-Line 78 07/15/23 05:00
Pulmonary Artery Systolic Pressure 27 07/15/23 16:00
Pulmonary Artery Diastolic Pressure 13 07/15/23 16:00
Right Atrial Pressure (RA) 10 07/15/23 16:00
Central Venous Pressure in mm/Hg 13 07/15/23 05:00
Cardiac Output 4.59 07/15/23 15:06
Cardiac Index 2.47 07/15/23 15:06
Systemic Vascular Resistance (SVR) 993 07/15/23 15:06
Actual Weight 87.9 kg 07/15/23 05:12
Body Mass Index (BMI) 30.4 07/15/23 05:12
Labs
07/15/23 04:26
PT 15.3 Sec (11.4-14.6) H 07/14/23 20:25
APTT 73.8 Sec (23.4-35.0) H 07/15/23 08:59
Hemoglobin A1c 7.2 % (4.0-5.6) H 07/15/23 04:26
Troponin I 35.500 ng/ml H* 07/15/23 12:03
Arterial Blood Gases
pH 7.41 (7.35-7.45) 07/15/23 16:02
pCO2 39 mmHg (35-48) 07/15/23 16:02
pO2 110 mmHg (83-108) H 07/15/23 16:02
HCO3 24.7 mmol/L (21-28) 07/15/23 16:02
Base Excess 0.1 mmol/L 07/15/23 16:02
ABG O2 Sat (Measured) 99.0 % (94-98) H 07/15/23 16:02
Potassium 3.9 mMOL/L (3.5-5.1) 07/14/23 20:25
O2 Delivery Level 07/15/23 16:02
Urinalysis
Urine Color Yellow 07/14/23 18:19
Urine Clarity Clear (Clear) 07/14/23 18:19
Urine pH 5.0 (5.0-9.0) 07/14/23 18:19
Ur Specific Malcolm 1.010 (<1.030) 07/14/23 18:19
Urine Ketones 1+ (Negative) A 07/14/23 18:19
Ur Occult Blood Reflex 4+ (Negative) A 07/14/23 18:19
Urine Bilirubin Negative (Negative) 07/14/23 18:19
Leukocyte Esterase Rfl Negative (Negative) 07/14/23 18:19
Urine RBC 40-50 /HPF (0-2) A 07/14/23 18:19
Urine WBC (Reflex) 0-2 /HPF (0-5) 07/14/23 18:19
Ur Squamous Epith Cells 0-2 /LPF (Few) 07/14/23 18:19
Urine Glucose Negative (Negative) 07/14/23 18:19
Urine Albumin (Reflex) Trace (Neg - Trace) 07/14/23 18:19
Exam
General: Well Developed, Well Nourished and Intubated
HEENT: Normocephalic
Respiratory: Crackles and Other (Intubated with 8.0 ET tube)
Cardiac: S1/S2 and Regular Rhythm
GI: Soft, Non Tender and Other (Large inguinal hernia found on exam)
Rectal: Deferred by Provider
Skin: Warm and Dry
Neuro: Sedated
Extremities: Pulses (+1)
Lymph: No Lymphadenopathy
Psych: Calm
Assessment / Plan
-
67-year-old male with past medical history listed above presented to [facility] emergency room with chest pain for several hours. He was found to be having an ST elevation myocardial infarction and was immediately taken to the Bus Driver Supervisor.
While in the Bus Driver Supervisor an Impella CP was placed and drug-eluting stent was placed to the circumflex. CT surgery was consulted for surgical evaluation.
#CAD
- s/p PCI to left circ; will be on DAPT therapy
- Due to the patient's critical illness, he is currently not a surgical candidate.
>>Once patient improves clinically; he will follow up with Dr. Garcia outpatient in 30 days
- Further details regarding surgical timing for intervention will be determined after the attending's fill evaluation.
#Cardiogenic Shock s/p Impella CP
- Monitor CI and MVO2 post Impella removal
- Monitor UOP; goal UOP>0.5ml/kg/hr
- Levophed weaned off; goal MAPs >65
- Candis 1.27; PA 28/14; CVP 11
#Influenza A
- continue Oseltamivir x 5 days total
- Wean vent support for goal extubation
- Once extubated, patient needs education on the importance of Flu vaccine
#SIRS
- Monitor fever trends
- Follow blood cultures and ua
- currently on Vanco and Zosyn
#Inguinal Edema
- stable in appearance
- s/p ultrasound of groin and scrotum; no gross hematoma identified and moderate hydrocele found
#NIDDM
- Hgb A1c 7.2
- Continue insulin gtt while acutely ill
- Will need better anti-diabetic management
- Agree with diabetes management consult
[2023-07-15 16:49] LABS: Lactic Acid 0.7 mmol/L (0.7-2.0)
[2023-07-15 17:03] LABS: Glucose - Point of Care 86 mg/dl (70-99)
[2023-07-15] MEDS: LIPITOR 80 MG TUBE (17:36)
[2023-07-15 19:02] LABS: Glucose - Point of Care 94 mg/dl (70-99)
--- NOTE | 2023-07-15 20:00 | PTCARENOTE ---
Received pt from zane RN, pt intubated and sedated. Pupils equal, round, reactive, 3 mm. NSR on monitor, HR 70s.BP 100s/50s via right radial gonzalo supports with Levo@1 mcg/min. PAP 20s/10s. CVP 12-14. RIJ cordis and sawn @ 45cm. Heart tones
audible. No edema noted. B/L LEs cool, distal pulses present with doppler. #8 ETT, 22@ lip, vent settings: A/C 14/450/5/40%, pulse ox 100%. Lung sound diminished. Abdomen soft, round, hypoactive BS. Warren maintained and draining adequate amount of
clear, yellow urine. Lower abdomen/groin and RFA site ecchymotic, hematoma present with Femstop device in place. Current gtts- Amio@0.5mg/min; Levo@1mcg/min, Fentanyl@75mcg/hr, Propofol@35 mcg/kg/min and insulin titrated per critical care glycemic
protocol. See work list for full assessment and interventions.
[2023-07-15 21:13] LABS: Glucose - Point of Care 133 mg/dl (70-99)
[2023-07-15 21:34] LABS: Hematocrit 28.6 % (39.0-52.0)
[2023-07-15 21:46] LABS: Lactic Acid 0.7 mmol/L (0.7-2.0)
[2023-07-15] MEDS: ATIVAN 1 MG IV (23:18)
[2023-07-15] MEDS: NSS (PRESERVATIVE FREE) 0.5 ML IV (23:19)
[2023-07-15 23:23] LABS: Glucose - Point of Care 83 mg/dl (70-99)
--- NOTE | 2023-07-15 23:30 | PTCARENOTE ---
Pt agitated, pt shaking and biting tube, received one time order of 1 mg Ativan. Pt calm at this time.
[2023-07-16] VITALS (41 sets, daily range): BP systolic 81–129; BP diastolic 38–73; BMI 30.8
[2023-07-16 01:09] LABS: Glucose - Point of Care 80 mg/dl (70-99)
[2023-07-16] MEDS: ZOSYN 50 IV ×2 (03:00→08:03)
[2023-07-16 03:20] LABS: Glucose - Point of Care 117 mg/dl (70-99)
[2023-07-16 03:23] LABS: B.E. -1.3 mmol/L; HCO3 23.7 mmol/L (21-28); Ionized Calcium 1.11 mMOL/L (1.15-1.33); O2 Saturation % 98.5 % (94-98); PCO2 40 mmHg (35-48); PO2 108 mmHg (83-108); pH 7.38 (7.35-7.45)
[2023-07-16] MEDS: OFIRMEV 100 IV ×3 (03:26→18:32)
[2023-07-16 03:27] LABS: Hematocrit 28.8 % (39.0-52.0); Hemoglobin 9.9 g/dL (13.0-18.0); Mean Corp Hgb Conc. 34.4 g/dL (33.0-37.0); Mean Corpuscular Volume 81.6 fL (80.0-94.0); Mean Platelet Volume 10.1 fL (7.4-10.4); Platelet Count 147 10^3/uL (130-400); Red Blood Cell Count 3.53 10^6/uL (4.70-6.10); Red Cell Dist. Width 13.8 % (11.5-14.5); White Blood Cell Count 11.3 10^3/uL (4.8-10.8)
[2023-07-16 03:40] LABS: Lactic Acid 0.8 mmol/L (0.7-2.0)
[2023-07-16 03:42] LABS: Blood Urea Nitrogen 17 mg/dl (9-20); Calcium 7.7 mg/dl (8.4-10.2); Carbon Dioxide 25 mmol/L (22-30); Chloride 101 mmol/L (98-107); Estimated Creatinine Clearance 95 ml/min; Glucose 119 mg/dl (70-99); Magnesium 1.9 mg/dl (1.6-2.3); Potassium 3.9 mmol/L (3.5-5.1); Sodium 132 mmol/L (135-145); eGFR > 60.00
[2023-07-16] MEDS: CALCIUM CHLORIDE 10% SYRINGE 60 MG IV (04:27)
[2023-07-16 05:11] LABS: Glucose - Point of Care 102 mg/dl (70-99)
[2023-07-16] MEDS: VANCOCIN 275 MG IV (05:42)
[2023-07-16] MEDS: DIPRIVAN 100 IV (06:21)
[2023-07-16 07:14] LABS: Glucose - Point of Care 83 mg/dl (70-99)
--- NOTE | 2023-07-16 07:15 | W.PN.INTV ---
Today's Communication / Plan
Recommendations
Sedation holiday, SBT, weaning
D/c vancomycin
Oseltamivir
Assessment
-
Assessment:
Mr Edmundo Glass is a 67/M adm 07-14 with chest tightness since 8pm on night WHIPPED TOPPING MIXER. At time of ER visit, 18hrs of constant chest tightness associated with VARELA. At ER, not in resp distress, POx 98%, normal BP, tachycardic, afebrile, EKG with ST
depression from V2-6, elevated troponin. Taken to labor relations officer, during cardiac cath he presented hypoxemia and then vomit, anesthesia proceeded to intubation to protect airway. H&P and [facility] report pending, needed circulatory support device (impella). D/w
Dr Arroyo at bedside, stented high degree lesion at Cx
Impression:
AMI
S/p R/[facility] 07-14-23: Cx stent, lithotripsy of underexpanded segment of Cx stent
Acute respiratory failure during prep for heart catheterization: intubated by Anesthesia
Influenza A
Conditions WHIPPED TOPPING MIXER:
IDDM, on insulin pump
Sinus arrhythmia
L rotator cuff repair
Nonsmoker
Plan:
Adm to CVICU after R/LHC for AMI, needed intubation and circulatory support device
Continue ACV
Current settings 14-450-5-0.40 (POx 99%)
Well synchronized to ACV at time of visit
Sedation/analgesia holiday now
Proceed to SBT, if successful will proceed to weaning trial
Continue NE, amiodarone gtt
Monitor SIERRA pulses
Monitor R groin hematoma, appears unchanged
Hemodynamic mgmt
ASA, ticagrelor to continue
Statin to continue
Blood cxs so far negative
MRSA screening negative
Resp secs cx pending
COVID negative
Influenza A positive, on oseltamivir, to complete 5 d course at least
Empiric atbs: vanco/zosyn, d/c vancomycin
Insulin gtt for glycemic control
PPI for GI prophylaxis
D/w PACS SPECIALIST
Critical care time: 35 min
Diagnostic tests:
CXR 07-14-23: portable, no comparison films, pulm vasc congestion with bat wing pattern, no pneumothorax or pleural effusions. ET, GT. [facility]
CXR 07-15-23: portable, improved pulm parenchymal and vasc congestion. ET/GT. [facility]. Impella
CXR 07-16-23: portable, no pulm edema but mild pulm vasc congestion. ET. GT. [facility]
TTE 07-14-23:
CONCLUSIONS
Normal left ventricular chamber size with lateral akinesis and mildly reduced left ventricular systolic function. Left ventricular ejection fraction is 40% on Impella CP.
Grossly normal right ventricular size and systolic function.
Probably normal atria.
Valves not assessed.
Impella present in aortic root .
Subjective Dataa
Subjective Data
Date of Service:
Date of Service: July 16, 2023
Chief Complaint: Rn Endocrinology Follow Up
Subjective:
No major events reported overnight
Impella discontinued yesterday
On low-dose pressor
On sedation
Well synchronized to mechanical ventilation assist-control mode
Review of Systems
General: Unobtainable - Sedation (Barely opening eyes to command, reportedly, the patient tends to be anxious and may present agitation.'s)
Objective Data
Data Reviewed
Vital Signs / I&O / Oxygen:
Vital Signs
Temp Pulse Resp BP Pulse Ox
100.1 F 94 11 103/59 99
07/16/23 06:00 07/16/23 06:24 07/16/23 06:24 07/16/23 06:00 07/16/23 06:24
Intake and Output
07/15/23 07/16/23 07/17/23
06:59 06:59 06:59
Intake Total 2173.5 / 2263.0 1898.8 / 1898.8
Output Total 2024 / 2049 1285 / 1285
Balance 148.5 / 213.0 613.8 / 613.8
SaO2 [A/C] 100
SaO2 99
Physical Exam
General: Respiratory Distress (n)
HEENT: Normocephalic and Moist Mucous Membranes
Cardiovascular: Regular Rhythm and Peripheral Edema (n)
Respiratory: Clear, Crackles (subtle) and Stridor (n)
GI: Soft and Non Distended
Neurology: Other (sedated, tries to open eyes to command)
Skin: Dry
Labs/Micro/Reports
Lab Data
07/16/23 03:14
07/16/23 03:14
Laboratory Results
07/15/23 07/15/23 07/15/23
07:30 07:59 08:59
APTT 73.8 H
pH Cancelled 7.40
pCO2 Cancelled 39
pO2 Cancelled 118 H
HCO3 Cancelled 24.2
O2 Delivery Level Cancelled 100
07/15/23 07/15/23 07/16/23
12:03 16:02 03:14
APTT
pH 7.46 H 7.41 7.38
pCO2 34 L 39 40
pO2 154 H 110 H 108
HCO3 24.2 24.7 23.7
O2 Delivery Level %oxygen/room air 100
Microbiology
07/14/23 18:32 Blood/Venous Blood Culture - Preliminary
No Growth in 24 hours- Final report to follow
07/14/23 18:18 Blood/Venous Blood Culture - Preliminary
No Growth in 24 hours- Final report to follow
07/15/23 08:42 Endotracheal Gram Stain - Preliminary
07/15/23 04:26 Nose Nasal Screen MRSA (PCR) - Final
MRSA not detected - performed by PCR methodology.
07/14/23 18:22 Nasal Swab Influenza Types A & B (TIANA) - Final
Influenza A Positive, NAAT
--- NOTE | 2023-07-16 07:30 | PTCARENOTE ---
Received pt from warehouse shift supervisor RN; pt intubated and sedated; Pupils 3mm and reactive; NSR on monitor and VSS; RIJ Cordis, [place] floated to 45, Right A-line and PIV x3 all lines leveled and zeroed; Levo, Fentanyl, Propofol, Insulin all infusing see flow
sheet for details; Vent settings A/C FiO2 40%, Rate 14, Tidal Volume 450, and PEEP 5 100% pulse ox; ET tube size 8 and 22 @ lip; Lungs diminished bilaterally; hypoactive bowel sounds; OG tube to low intermittent suction and draining brown/yellow
liquid; lower extremity pulses present by Doppler; +3 scrotal edema and ecchymotic; Dr Wylie at bedside and Right Groin FemoStop discontinued and no drainage noted, dressing applied; see nursing documentation for further details.
--- NOTE | 2023-07-16 07:54 | W.PN.CD ---
Today's Communication / Plan
-
-Impella removed yesterday.
-Remains intubated, on low-dose Levophed.
-Continue supportive care.
Impression / Plan
-
Impression/Plan: 67 y/o male with HTN, HLD, and IDDM presenting with inferoposterior STEMI and fever, found to have multivessel disease s/p PCI to ostial LCx with post hoc coronary lithotripsy with cardiogenic shock requiring Impella placement and
influenza A.
#STEMI
-Acute.
-S/P Successful PCI of ostial LCx (Medtronic Grant Hamblen 2.5 x 12 PRAKASH, post dilated with 2.5 NC balloon to 18 ROSALINDA).
-IVUS showed underexpansion in proximal margin requiring post hoc intracoronary lithotripsy (2.5 x 12 Shockwave balloon) and aggressive post dilation (2.75 x 12 NC balloon to 16 ROSALINDA).
-Troponin up to 38; peaked and trended down.
-Continue DAPT with ASA and ticagrelor for at least 12 months followed by aspirin indefinitely.
#Shock
-Acute, mixed picture, improving.
-Impella removed yesterday.
-Remains intubated, on low-dose Levophed.
-Continue supportive care.
#Residual CAD
-Chronic.
-pLAD 90%, mLAD 70% --> long 50%, RCA PARENT PARTNER.
-Per CULPRIT SHOCK trial, LAD revascularization deferred at the time of presentation.
-Patient evaluated by CT Surgery; poor candidate for surgical measures at this time-can follow-up with CT Surgery as outpatient for reevaluation once recovered from event.
-Continue high dose, high potency statin.
Acute HFrEF (EF 40%)
-Try to optimize with GDMT once extubated and off pressors.
#Influenza A
-Acute.
-Continue oseltamivir; treatment as per primary team.
#HTN
-Chronic.
-All meds on hold due to hypotension/shock.
#HLD
-Chronic.
Critical Care Time = 42 minutes.
Subjective/Interval History:
No major events overnight; telemetry stable.
DATA:
Cardiac Catheterization/PCI, 07/14/2023:
CONCLUSIONS:
1.� Right dominant circulation with a PARENT PARTNER of the proximal RCA, a 90% proximal LAD lesion lesion, a 70% mid LAD lesion, a long, 50% distal LAD lesion and a hazy, densely calcified 90% ostial circumflex lesion immediately proximal to the bifurcation
of the circumflex and primary obtuse marginal, status post successful IVUS guided PCI (Medtronic Grant Hamblen 2.5 x 12 PRAKASH, postdilated with a 2.5 NC balloon to 18 rosalinda).
2.� Post hoc intracoronary lithotripsy and postdilation after IVUS revealed underexpansion of the proximal stent (shockwave 2.5 x 12 lithotripsy balloon, 2.75 x 8 NC balloon to 16 rosalinda).
3.� Normal left ventricular size with severe hypokinesis/akinesis of the lateral/anterolateral wall and moderately depressed systolic function (LV ejection fraction 35-40% on ventriculography).
4.� Severely elevated filling pressures with depressed cardiac function, consistent with cardiogenic shock (LVEDP = 33 mmHg, cardiac index 1.9 L/min/m�).
5.� Status post successful placement of a percutaneous left ventricular assist device (Abiomed Impella CP) via right common femoral approach.
6.� Status post right heart catheterization via right internal jugular approach.
TTE, 07/14/2023:
CONCLUSIONS
�Normal left ventricular chamber size with lateral akinesis and mildly reduced
�left ventricular systolic function. Left ventricular ejection fraction is 40%
�on Impella CP.
�Grossly normal right ventricular size and systolic function.
�Probably normal atria.
�Valves not assessed.
�Impella present in aortic root .
�
�No prior study available for comparison.
Physical Exam
Vital Signs/Labs
Vital Signs
Temp Pulse Resp BP Pulse Ox
99.9 F 94 14 103/59 99
07/16/23 07:00 07/16/23 07:00 07/16/23 07:00 07/16/23 06:00 07/16/23 07:00
07/15/23 07/16/23 07/17/23
06:59 06:59 06:59
Actual Weight 87.9 kg 89 kg
07/16/23 03:14
07/16/23 03:14
PT 15.3 Sec (11.4-14.6) H 07/14/23 20:25
INR 1.21 07/14/23 20:25
APTT 73.8 Sec (23.4-35.0) H 07/15/23 08:59
Magnesium 1.9 mg/dl (1.6-2.3) 07/16/23 03:14
Triglycerides 147 mg/dl (10-149) 07/15/23 04:26
LDL Cholesterol, Calc 81 mg/dl 07/15/23 04:26
VLDL Cholesterol, Calc 29 mg/dl (0-30) 07/15/23 04:26
HDL Cholesterol 29 mg/dl 07/15/23 04:26
LAB Results
07/14/23 07/14/23 07/15/23
13:58 17:50 00:19
Troponin I 0.167 H* 9.900 H* D 36.800 H* D
07/15/23 07/15/23
06:05 12:03
Troponin I 38.600 H* 35.500 H*
Physical Exam
Constitutional: Other (Intubated, sedated)
EENT: Anicteric
Cardiovascular: Rhythm & rate is regular, Pedal edema is absent, Systolic murmur absent and S1S2 is normal
Respiratory: Other (On ventilator; coarse bilateral breath sounds)
GI: Soft
Neuro/Psych: Other (Intubated, sedated)
Other: Skin (Warm, dry)
Data Reviewed
-
Date of Service: July 16, 2023
EKG: Tracing Personally Visualized and interpreted (Telemetry: Sinus rhythm; no events)
Medical Tests (PFT, Pathology etc): Discussed with Nurse
Labs: Labs Reviewed by me
Critical Care Time (in minutes): 43
--- NOTE | 2023-07-16 08:00 | PTCARENOTE ---
Dr Felix at bedside, per MD wean sedation and wake pt; possible extubated today.
[2023-07-16] MEDS: LOW STRENGTH ASPIRIN 81 MG TUBE (08:03)
[2023-07-16] MEDS: NSS (PRESERVATIVE FREE) 10 ML IV (08:03)
[2023-07-16] MEDS: BRILINTA 90 MG TUBE ×2 (08:03→21:09)
[2023-07-16] MEDS: MIRALAX 17 GRAMS TUBE (08:03)
[2023-07-16] MEDS: PROTONIX IV 40 MG IV (08:03)
[2023-07-16] MEDS: TAMIFLU 75 MG PO ×2 (08:08→21:11)
[2023-07-16] MEDS: KCL ELIXIR 40 MEQ TUBE (08:28)
[2023-07-16 08:58] LABS: Glucose - Point of Care 100 mg/dl (70-99)
--- NOTE | 2023-07-16 10:18 | W.PN.ID1 ---
Date of Service
Date of Service: July 16, 2023
Today's Communication
DC Vancomycin and Zosyn.
Continue Oseltamivir.
Assessment / Plan
# STEMI with cardiogenic shock
- 07/14/23 s/p cardiac cath, PCI/stent, Impella device removed 07/15.
- Remains on low dose pressor.
# Acute Influenza infection
-Unvaccinated
- Continue Oseltamivir to complete 5 days.
# SIRS (fever, wbc, shock) due to STEMI.
- fever from Flu and STEMI.
- Leukocytosis trending down
-CXR no infiltrate
- If blood cx's negative to date , dc Vancomycin and Zosyn.
# IDDM, Aic 7.2
Chief Complaint
-: Fever and Other (Flu)
Subjective / Review of Systems
Remains on vent
Vital Signs / Physical Exam
Vital Signs
Vital Signs
Temp Pulse Resp BP Pulse Ox
100.8 F H 106 17 101/58 100
07/16/23 09:00 07/16/23 09:00 07/16/23 09:00 07/16/23 08:28 07/16/23 09:43
Selected Entries
07/16/23
03:00
Temp 102 F H
Physical Exam
Constitutional: Acutely Ill
Cardiovascular: S1/S2 and Other (tachycardic)
Pulmonary: Clear
Gastrointestinal: Soft, Non Tender, Non Distended and Normal Bowel Sounds
Extremities: Negative Edema
Objective Data
Lab Data
Lab Results
07/16/23 03:14
07/16/23 03:14
PT 15.3 Sec (11.4-14.6) H 07/14/23 20:25
INR 1.21 07/14/23 20:25
APTT 73.8 Sec (23.4-35.0) H 07/15/23 08:59
Estimated Creat Clear 95 ml/min 07/16/23 03:14
Lactic Acid Cancelled 07/16/23 20:00
Total Bilirubin 2.0 mg/dl (0.2-1.3) H 07/15/23 04:26
AST 238 U/L (17-59) H 07/15/23 04:26
ALT 37 U/L (0-50) 07/15/23 04:26
Alkaline Phosphatase 51 U/L (38-126) 07/15/23 04:26
Most recent labs reviewed.
Micro Results:
07/15/23 21:28 Blood Culture - Pending
Blood/Venous
07/14/23 18:32 Blood Culture - Preliminary
Blood/Venous No Growth in 24 hours- Final report to follow
07/14/23 18:18 Blood Culture - Preliminary
Blood/Venous No Growth in 24 hours- Final report to follow
07/15/23 08:42 Respiratory Culture - Pending
Endotracheal Gram Stain - Preliminary
07/15/23 04:26 Nasal Screen MRSA (PCR) - Final
Nose MRSA not detected - performed by PCR methodology.
07/14/23 18:22 Influenza Types A & B (TIANA) - Final
Nasal Swab Influenza A Positive, NAAT
07/14/23 CXR: Bilateral perihilar airspace opacities compatible with pulmonary edema.
07/16/23: CXR: Overall low lung volumes are noted without pneumothorax or significant focal parenchymal opacification. No pneumothorax or significant pleural effusion.
[2023-07-16 11:08] LABS: Glucose - Point of Care 114 mg/dl (70-99)
--- NOTE | 2023-07-16 11:19 | PTCARENOTE ---
Dr Felix at bedside, updated ; Fentanyl and Propofol turn off per MD request.
--- NOTE | 2023-07-16 12:23 | W.PN.HOSP.TC ---
Today's Communication/Plan
-
wean sedation, and possibly extubation
wean pressors
continue critical care glycemic protocol
continue Tamiflu
off Abx
Assessment / Plan
Assessment / Plan
Assessment:
STEMI
Cardiogenic shock status post Impella
- R/LHC: �Right dominant circulation with a POSTAL CARRIER of the proximal RCA, a 90% proximal LAD lesion lesion, a 70% mid LAD lesion, a long, 50% distal LAD lesion and a hazy, densely calcified 90% ostial circumflex lesion immediately proximal to the
bifurcation of the circumflex and primary obtuse marginal
- s/p stent of OM and lithotripsy
- post cath Echo: Normal left ventricular chamber size with lateral akinesis and mildly reduced left ventricular systolic function. Left ventricular ejection fraction is 40%. normal RV function.
- continue ASA/Brilinta/Statin
- continue IV Amiodarone - requires intensive monitoring
- s/p Impella currently explanted. Remains on Levophed which requires intensive monitoring
- follow CTS and Cardiology management
R groin hematoma
- management per Interventional cards
VDRF during prep for cath
Sepsis likely from influenza A
- pulmonary following for vent management
- sedation per ICU/pulm
- continue Tamiflu via enteric tube
- off empiric Abx with negative cultures as per ID
IDDM
- Patient appears to be on V-GO 20 insulin patch which is held
- continue critical care glycemic protocol
- STUDIO OPERATIONS ENGINEER IN CHARGE following
Essential hypertension
- hold lisinopril
DVT ppx: Heparin drip
Code: Full
Total Critical Care Time 35 minutes. I was immediately available to the patient and staff. I personally examined, reviewed labs, diagnostic images/reports, interpretations, treatment plans, discussed patient care with other providers and family or
caregivers (if patient is unable to make decisions), entered orders as appropriate and documented the medical record.
Anticipated Discharge: > 48 hours
Subjective/Interval History
-
Date of Service: July 16, 2023
remains on vent, sedation being weaned
remains on pressors
fevers persist
Objective Data
-
Labs:
Laboratory Results
07/16/23
03:14
WBC 11.3 H
Hgb 9.9 L
Hct 28.8 L
Plt Count 147 D
HCO3 23.7
Sodium 132 L
Potassium 3.9
Chloride 101
Carbon Dioxide 25
BUN 17
Creatinine 0.8
Glucose 119 H
Calcium 7.7 L
Vital Signs:
Vital Signs
Temp Pulse Resp BP Pulse Ox
100.6 F H 98 15 91/50 99
07/16/23 12:00 07/16/23 12:00 07/16/23 12:00 07/16/23 12:00 07/16/23 12:00
I&O
07/15/23 07/16/23 07/17/23
06:59 06:59 06:59
Intake Total 2173.5 / 2263.0 1898.8 / 1938.3 382.8 / 382.8
Output Total 2024 1285 / 1345 600 / 600
Balance 148.5 / 213.0 613.8 / 593.3 -217.2 / -217.2
Physical Exam
-
General: Intubated
HEENT: Normocephalic and Atraumatic
Respiratory: Negative Wheezes
Cardiac: Regular Rhythm
GI: Soft
Genito-urinary: No Costovertebral Tender
Musculoskeletal: No Edema
Neuro: AO x 3
Hematologic / Lymphatic: No Lymphadenopathy
Psych: Calm
Data Reviewed
-
Critical Care Time (in minutes): 35
Labs: Labs Reviewed by me
--- NOTE | 2023-07-16 12:41 | PTCARENOTE ---
Respiratory and Dr Felix at bedside; pt placed on CPAP.
[2023-07-16 13:13] LABS: Glucose - Point of Care 111 mg/dl (70-99)
--- NOTE | 2023-07-16 14:38 | PTCARENOTE ---
Respiratory and Dr Felix at bedside and pt extubated; placed pt on 6L 96%; Right A-line removed at this time.
[2023-07-16 15:15] LABS: Glucose - Point of Care 98 mg/dl (70-99)
[2023-07-16] MEDS: NSS 500 IV (16:02)
[2023-07-16] MEDS: LEVOPHED 250 IV (16:05)
--- NOTE | 2023-07-16 16:06 | PTCARENOTE ---
Assessment unchanged; NSR/Sinus Tachycardia on monitor and VSS; Levo and Insulin infusing see flow sheet for details; pt resting comfortably in bed.
[2023-07-16 17:25] LABS: Glucose - Point of Care 115 mg/dl (70-99)
[2023-07-16] MEDS: LIPITOR TUBE (18:03)
[2023-07-16 19:19] LABS: Glucose - Point of Care 126 mg/dl (70-99)
[2023-07-16] MEDS: BRILINTA TUBE (21:01)
[2023-07-16] MEDS: TAMIFLU PO (21:01)
[2023-07-16 21:17] LABS: Glucose - Point of Care 93 mg/dl (70-99)
--- NOTE | 2023-07-16 22:00 | PTCARENOTE ---
Patient received resting in bed. Patient A+A+Ox3. No neurological deficits noted. Patient moves all extremities. Patient tolerated ice chips and sips of water. Discussed with PA ability to give Brilinta 90mg in applesauce and Tamiflu orally.
Patient tolerated applesauce and Tamiflu. Patient with some difficulty swallowing due to verbalization of sore mouth and throat. No coughing noted after oral intake. Patient does occasionally attempt to clear throat at times throughout shift. No
s/s of respiratory distress. No c/o SOB. O2 at 4L via NC. SaO2 99%. Sinus Tachycardia. Heart rate 100's. Levophed gtt at 2 mcq/min (7.5 ml/hr) titrate to maintain SBP >90. Patient with no c/o chest pain, pressure or discomfort. Normoactive
bowel sounds. No BM. No c/o nausea. No vomiting. Warren catheter - Temperature sensing - Yellow urine with sediment - Output > 30 ml/hr. Generalized edema. Radial pulses palpable. Dorsalis pedis and Posterior tibial pulses via Doppler.
Patient with no c/o back or flank pain. Patient with Right I.J. Cordis and [place] Wyatt catheter. PAP and CVP - Pressure bag/Saline flush - Flush without difficulty - Zeroed and calibrated - Waveform within normal limits. PAP 32/26 (23). CVP 10.
C.O. 7.12 C.I. 3.83. Right groin dressing intact - No bleeding or oozing noted. Patient's lower abdomen and scrotum with deep purple colored ecchymosis. Febrile. Core temperature 100.7. Cool cloth to brow. Insulin gtt - Glycemic Protocol.
Assessment as documented.
[2023-07-16 23:11] LABS: Glucose - Point of Care 109 mg/dl (70-99)
[2023-07-17] VITALS (25 sets, daily range): BP systolic 89–117; BP diastolic 47–75; PULSE 105–107; O2SAT 94; BMI 30.3
--- NOTE | 2023-07-17 01:00 | PTCARENOTE ---
Patient resting in bed watching television and dozing intermittently. Assessment as documented.
[2023-07-17 01:23] LABS: Glucose - Point of Care 92 mg/dl (70-99)
[2023-07-17] MEDS: NOVOLIN R INSULIN INFUSION 100 IV (01:30)
[2023-07-17 03:18] LABS: Glucose - Point of Care 99 mg/dl (70-99)
[2023-07-17] MEDS: OFIRMEV 100 IV (03:26)
[2023-07-17] MEDS: CHLORASEPTIC/SORE THROAT SPRAY 1 SPRAY PO ×2 (04:01→08:22)
[2023-07-17 04:52] LABS: Hematocrit 27.4 % (39.0-52.0); Hemoglobin 9.3 g/dL (13.0-18.0); Mean Corp Hgb Conc. 33.9 g/dL (33.0-37.0); Mean Corpuscular Hgb 27.8 pg (27.0-31.0); Mean Corpuscular Volume 81.8 fL (80.0-94.0); Mean Platelet Volume 10.7 fL (7.4-10.4); Platelet Count 141 10^3/uL (130-400); Red Blood Cell Count 3.35 10^6/uL (4.70-6.10); Red Cell Dist. Width 13.4 % (11.5-14.5); White Blood Cell Count 11.6 10^3/uL (4.8-10.8)
[2023-07-17 05:13] LABS: Blood Urea Nitrogen 11 mg/dl (9-20); Calcium 7.4 mg/dl (8.4-10.2); Carbon Dioxide 27 mmol/L (22-30); Chloride 103 mmol/L (98-107); Estimated Creatinine Clearance > 125 ml/min; Glucose 101 mg/dl (70-99); Potassium 3.7 mmol/L (3.5-5.1); Sodium 132 mmol/L (135-145); Triglycerides 135 mg/dl (10-149); eGFR > 60.00
[2023-07-17 05:18] LABS: Glucose - Point of Care 113 mg/dl (70-99)
--- NOTE | 2023-07-17 05:45 | PTCARENOTE ---
AM lab work collected and sent. Portable CXR completed. Patient given CHG bath and linens changed. IV Ofirmev 1,000mg/100ml x1 for fever. T-Max 101.1. Core temperature now 99.1. Mouth care provided and face washed. Chloraseptic/Sore Throat
Gwynn x1. I.S. 750-1000ml. C.O. 4.95 C.I. 2.66. Assessment/Interventions as documented.
[2023-07-17 07:11] LABS: Glucose - Point of Care 89 mg/dl (70-99)
--- NOTE | 2023-07-17 07:30 | PTCARENOTE ---
Received pt from nightshift RN; Pt AAOx3 and resting comfortably in bed; Sinus Tachycardia on monitor and VSS; RIJ Cordis, [place] floated to 45 and PIVx3 all lines leveled and zeroed; Insulin infusing per Glycemic protocol see flow sheet for details;
Lungs diminished; IS to 750; hypoactive bowel sounds; Warren Catheter draining clear yellow urine; pulses present by Doppler; no edema noted; Right groin dressing C/D/I; see nursing documentation for further details.
CI 4.35
CO 8.08
SVR 663
[2023-07-17] MEDS: CALCIUM GLUCONATE 130 MG IV (08:07)
[2023-07-17] MEDS: BRILINTA 90 MG PO ×2 (08:09→20:54)
[2023-07-17] MEDS: MAGNESIUM OXIDE 500 MG PO ×2 (08:09→20:53)
[2023-07-17] MEDS: NSS (PRESERVATIVE FREE) 10 ML IV (08:09)
[2023-07-17] MEDS: LOW STRENGTH ASPIRIN 81 MG TUBE (08:09)
[2023-07-17] MEDS: TAMIFLU 75 MG PO ×2 (08:09→20:54)
[2023-07-17] MEDS: MIRALAX 17 GRAMS TUBE (08:09)
[2023-07-17] MEDS: KCL ELIXIR 40 MEQ PO (08:10)
[2023-07-17] MEDS: PROTONIX IV 40 MG IV (08:10)
[2023-07-17 09:40] LABS: Glucose - Point of Care 180 mg/dl (70-99)
[2023-07-17] MEDS: LANTUS 0.0500000000000000028 UNITS SC (10:14)
[2023-07-17 10:23] LABS: Glucose - Point of Care 174 mg/dl (70-99)
--- NOTE | 2023-07-17 10:58 | W.PN.CD ---
Today's Communication / Plan
-
-No major events overnight; mild sinus tachycardia on telemetry.
-Remains stable status-post Impella removal.
-Now extubated, off Levophed.
-Continue supportive care.
-Try to initiate beta-purnima starting tomorrow (Toprol-XL 25 mg daily); further GDMT thereafter, as blood pressure allows.
Impression / Plan
-
Impression/Plan: 67 y/o male with HTN, HLD, and IDDM presenting with inferoposterior STEMI and fever, found to have multivessel disease s/p PCI to ostial LCx with post hoc coronary lithotripsy with cardiogenic shock requiring Impella placement and
influenza A.
#STEMI
-Acute.
-S/P Successful PCI of ostial LCx (Medtronic [place] 2.5 x 12 PRAKASH, post dilated with 2.5 NC balloon to 18 JOSE ANTONIO).
-IVUS showed underexpansion in proximal margin requiring post hoc intracoronary lithotripsy (2.5 x 12 Shockwave balloon) and aggressive post dilation (2.75 x 12 NC balloon to 16 JOSE ANTONIO).
-Troponin up to 38; peaked and trended down.
-Continue DAPT with ASA and ticagrelor for at least 12 months followed by aspirin indefinitely.
-Levophed discontinued at midnight; blood pressure is holding stable.
-Try to initiate beta-purnima starting tomorrow (Toprol-XL 25 mg daily); further GDMT thereafter, as blood pressure allows.
#Acute HFrEF/ICM (EF 40%)
-Try to optimize with GDMT as above.
#Shock
-Acute, mixed picture, improving.
-Remains stable status-post Impella removal.
-Now extubated, off Levophed.
-Continue supportive care.
#Residual CAD
-Chronic.
-pLAD 90%, mLAD 70% --> long 50%, RCA BINDER SELECTOR.
-Per CULPRIT SHOCK trial, LAD revascularization deferred at the time of presentation.
-Patient evaluated by CT Surgery; poor candidate for surgical measures at this time-can follow-up with CT Surgery as outpatient for reevaluation once recovered from event.
-Continue high dose, high potency statin.
#Influenza A
-Acute.
-Continue oseltamivir; treatment as per primary team.
#HTN
-Chronic.
-All meds on hold due to hypotension/shock.
#HLD
-Chronic.
Critical Care Time = 40 minutes.
Subjective/Interval History:
No major events overnight; mild sinus tachycardia on telemetry.
DATA:
Cardiac Catheterization/PCI, 07/14/2023:
CONCLUSIONS:
1.� Right dominant circulation with a BINDER SELECTOR of the proximal RCA, a 90% proximal LAD lesion lesion, a 70% mid LAD lesion, a long, 50% distal LAD lesion and a hazy, densely calcified 90% ostial circumflex lesion immediately proximal to the bifurcation
of the circumflex and primary obtuse marginal, status post successful IVUS guided PCI (Medtronic [place] 2.5 x 12 PRAKASH, postdilated with a 2.5 NC balloon to 18 jose antonio).
2.� Post hoc intracoronary lithotripsy and postdilation after IVUS revealed underexpansion of the proximal stent (shockwave 2.5 x 12 lithotripsy balloon, 2.75 x 8 NC balloon to 16 jose antonio).
3.� Normal left ventricular size with severe hypokinesis/akinesis of the lateral/anterolateral wall and moderately depressed systolic function (LV ejection fraction 35-40% on ventriculography).
4.� Severely elevated filling pressures with depressed cardiac function, consistent with cardiogenic shock (LVEDP = 33 mmHg, cardiac index 1.9 L/min/m�).
5.� Status post successful placement of a percutaneous left ventricular assist device (Abiomed Impella CP) via right common femoral approach.
6.� Status post right heart catheterization via right internal jugular approach.
TTE, 07/14/2023:
CONCLUSIONS
�Normal left ventricular chamber size with lateral akinesis and mildly reduced
�left ventricular systolic function. Left ventricular ejection fraction is 40%
�on Impella CP.
�Grossly normal right ventricular size and systolic function.
�Probably normal atria.
�Valves not assessed.
�Impella present in aortic root .
�
�No prior study available for comparison.
Physical Exam
Vital Signs/Labs
Vital Signs
Temp Pulse Resp BP Pulse Ox
100 F 118 27 117/68 95
07/17/23 10:00 07/17/23 10:15 07/17/23 10:15 07/17/23 10:04 07/17/23 10:15
07/16/23 07/17/23 07/18/23
06:59 06:59 06:59
Actual Weight 89 kg 87.6 kg
07/17/23 04:15
07/17/23 04:15
PT 15.3 Sec (11.4-14.6) H 07/14/23 20:25
INR 1.21 07/14/23 20:25
APTT 73.8 Sec (23.4-35.0) H 07/15/23 08:59
Magnesium 1.9 mg/dl (1.6-2.3) 07/16/23 03:14
Triglycerides 135 mg/dl (10-149) 07/17/23 04:15
LDL Cholesterol, Calc 81 mg/dl 07/15/23 04:26
VLDL Cholesterol, Calc 29 mg/dl (0-30) 07/15/23 04:26
HDL Cholesterol 29 mg/dl 07/15/23 04:26
LAB Results
07/14/23 07/14/23 07/15/23
13:58 17:50 00:19
Troponin I 0.167 H* 9.900 H* D 36.800 H* D
07/15/23 07/15/23
06:05 12:03
Troponin I 38.600 H* 35.500 H*
Physical Exam
Constitutional: No acute distress and Comfortable
EENT: Anicteric
Cardiovascular: Rhythm & rate is regular (Mildly tachycardic), Pedal edema is absent, Systolic murmur absent and S1S2 is normal
Respiratory: Respiratory effort normal and Lungs clear to auscul. (Anteriorly)
GI: Soft
Neuro/Psych: AO x 3
Other: Skin (Warm, dry)
Data Reviewed
-
Date of Service: July 17, 2023
EKG: Tracing Personally Visualized and interpreted (Telemetry: Sinus tachycardia 110-120s)
Echo: Report Reviewed by me (EF 40%)
Medical Tests (PFT, Pathology etc): Discussed with Nurse
Labs: Labs Reviewed by me
--- NOTE | 2023-07-17 11:06 | PTCARENOTE ---
Assessment unchanged; Sinus Tachycardia on monitor and VSS; Warren Catheter discontinued per order; [place]-Wyatt catheter removed per order; pt states 'having crushing chest pain 12/20); EKG performed and resulted Sinus Tachycardia; BP 117/68, and HR
130; Dr Wylie at bedside; Troponin sent; pt states pain now /10; Speech therapy at bedside; pt OOB to chair x2 assist.
[2023-07-17 11:13] LABS: Glucose - Point of Care 141 mg/dl (70-99)
[2023-07-17 12:07] LABS: Glucose - Point of Care 118 mg/dl (70-99)
--- NOTE | 2023-07-17 12:08 | PTCARENOTE ---
Insulin drip discontinued per order; pt downgraded to telemetry.
--- NOTE | 2023-07-17 12:09 | W.PN.HOSP.TC ---
Today's Communication/Plan
-
transfer to IVU
continue flu treatment
PT/OT
Assessment / Plan
Assessment / Plan
Assessment:
STEMI
Cardiogenic shock status post Impella
- R/LHC: �Right dominant circulation with a MORNING NEWS ANCHOR of the proximal RCA, a 90% proximal LAD lesion lesion, a 70% mid LAD lesion, a long, 50% distal LAD lesion and a hazy, densely calcified 90% ostial circumflex lesion immediately proximal to the
bifurcation of the circumflex and primary obtuse marginal
- s/p stent of OM and lithotripsy
- post cath Echo: Normal left ventricular chamber size with lateral akinesis and mildly reduced left ventricular systolic function. Left ventricular ejection fraction is 40%. normal RV function.
- s/p Impella which is now explanted. Levophed weaned off.
- continue ASA/Brilinta/Statin
- continue IV Amiodarone - requires intensive monitoring
- follow CTS and Cardiology management
R groin hematoma
- management per Interventional cards
VDRF during prep for cath
Sepsis likely from influenza A
- pulmonary following for vent management
- sedation per ICU/pulm
- continue Tamiflu via enteric tube
- off empiric Abx with negative cultures as per ID
IDDM, type 2
- Patient appears to be on V-GO 20 insulin patch which is held
- wean from critical care glycemic protocol/insulin drip to SC insulin + SSI
- MERCURY CELL CLEANER following
Essential hypertension
- hold lisinopril
DVT ppx: SCDs
Code: Full
Anticipated Discharge: > 48 hours
Subjective/Interval History
-
Date of Service: July 17, 2023
extubated yesterday and pressors stopped overnight
insulin drip being titrated off and swan removed
sitting up in chair, denies any complaints
no fevers
Objective Data
-
Labs:
Laboratory Results
07/17/23
04:15
WBC 11.6 H
Hgb 9.3 L
Hct 27.4 L
Plt Count 141
Sodium 132 L
Potassium 3.7
Chloride 103
Carbon Dioxide 27
BUN 11
Creatinine 0.6 L
Glucose 101 H
Calcium 7.4 L
Vital Signs:
Vital Signs
Temp Pulse Resp BP Pulse Ox
98.6 F 113 20 93/56 95
07/17/23 11:51 07/17/23 12:00 07/17/23 11:51 07/17/23 12:00 07/17/23 12:00
I&O
07/16/23 07/17/23 07/18/23
06:59 06:59 06:59
Intake Total 1898.8 / 1938.3 1082.1 / 1095.6 82.8 / 82.8
Output Total 1285 / 1345 2525 / 2650 485 / 485
Balance 613.8 / 593.3 -1442.9 / -1554.4 -402.2 / -402.2
Physical Exam
-
General: No Apparent Distress
HEENT: Normocephalic and Atraumatic
Respiratory: Negative Wheezes or Rales
Cardiac: Regular Rhythm, S1/S2 and Tachycardic
GI: Soft
Genito-urinary: No Costovertebral Tender
Neuro: AO x 3
Psych: Calm
Data Reviewed
-
Total Time Spent with Patient (in minutes): 45
Labs: Labs Reviewed by me
--- NOTE | 2023-07-17 12:30 | PTOTSP ---
Speech Therapy
Presentation: Patient's speech was weak in quality which may be secondary to recent intubation/ extubation. Patient reported throat pain which patient was receiving oral spray to assist with pain management
Swallowing Function: Patient was observed with several bites of cracker and puree in addition to several sips of thin liquids (straw) and ice chip presentations in which patient appeared to tolerate all PO as he did not exhibit any overt clinical
s/sx of aspiration. Patient demonstrated mild prolonged mastication of cracker but used thin liquid washes to assist. Patient required assistance with self feeding due to apparent discoordination. Patient denied dysphagia complaints but reported
throat pain which is being managed with oral spray administered by RN.
Recommendations:
1) Regular consistency solids and thin liquids
2) Aspiration precautions
3) Assistance with PO
4) Medications as tolerated
Plan: ELECTRONEURODIAGNOSTIC TECHNOLOGIST will continue to follow; pending hospitalization.
--- NOTE | 2023-07-17 13:06 | W.PN.INTV ---
Today's Communication / Plan
Recommendations
Tamiflu
IVU
Assessment
-
Assessment:
Mr Edmundo Glass is a 67/M adm 07-14 with chest tightness since 8pm on night COLD HEADER. At time of ER visit, 18hrs of constant chest tightness associated with VARELA. At ER, not in resp distress, POx 98%, normal BP, tachycardic, afebrile, EKG with ST
depression from V2-6, elevated troponin. Taken to mason tender restoration labor, during cardiac cath he presented hypoxemia and then vomit, anesthesia proceeded to intubation to protect airway. H&P and LHC report pending, needed circulatory support device (impella). D/w
Dr Arroyo at bedside, stented high degree lesion at Cx
Impression:
AMI
S/p R/LHC 07-14-23: Cx stent, lithotripsy of underexpanded segment of Cx stent
Acute respiratory failure during prep for heart catheterization: intubated by Anesthesia 07-14, extubated 07-16
Influenza A
Conditions COLD HEADER:
IDDM, on insulin pump
Sinus arrhythmia
L rotator cuff repair
Nonsmoker
Plan:
Adm to CVICU after R/LHC for AMI, needed intubation and circulatory support device
Required ventilator support until 07-16, extubated with no issue
Monitor R groin hematoma, appears unchanged
ASA, ticagrelor, statin to continue
Blood cxs so far negative
MRSA screening negative
Resp secs cx negative
COVID negative
Influenza A positive, on oseltamivir, to complete 5 d course at least
Empiric atbs: vanco/zosyn, discontinued 07-16
Insulin gtt for glycemic control
PPI for GI prophylaxis
Transfer to IVU, pulm to follow
Diagnostic tests:
CXR 07-14-23: portable, no comparison films, pulm vasc congestion with bat wing pattern, no pneumothorax or pleural effusions. ET, GT. RIJ SG
CXR 07-15-23: portable, improved pulm parenchymal and vasc congestion. ET/GT. [facility] SGC. Impella
CXR 07-16-23: portable, no pulm edema but mild pulm vasc congestion. ET. GT. [facility] SG
CXR 07-17-23: portable, no infiltrates. RIJ SGC
TTE 07-14-23:
CONCLUSIONS
Normal left ventricular chamber size with lateral akinesis and mildly reduced left ventricular systolic function. Left ventricular ejection fraction is 40% on Impella CP.
Grossly normal right ventricular size and systolic function.
Probably normal atria.
Valves not assessed.
Impella present in aortic root .
Subjective Dataa
Subjective Data
Date of Service:
Date of Service: July 17, 2023
Chief Complaint: Patient Monitor Follow Up
Subjective:
No major events reported overnight
Out of bed in chair
Comfortable
and daughter at bedside
Review of Systems
General: Fever (n), Sweats, Chills and Satisfactory Appetite (n)
HEENT: Epistaxis and Dysphagia (n)
Cardiopulmonary: Dyspnea (n at rest), Wheezing (n) and Chest Pain
GI: Abdominal Pain (n), Nausea and Vomiting (n)
Neuro: Weakness
Objective Data
Data Reviewed
Vital Signs / I&O / Oxygen:
Vital Signs
Temp Pulse Resp BP Pulse Ox
98.6 F 112 20 93/56 96
07/17/23 11:51 07/17/23 13:00 07/17/23 11:51 07/17/23 12:00 07/17/23 13:00
Intake and Output
07/16/23 07/17/23 07/18/23
06:59 06:59 06:59
Intake Total 1898.8 / 1938.3 1082.1 / 1095.6 92.8 / 92.8
Output Total 1285 / 1345 2525 / 2650 485 / 485
Balance 613.8 / 593.3 -1442.9 / -1554.4 -392.2 / -392.2
SaO2 [CPAP] 99
SaO2 [A/C] 99
SaO2 96
Nasal Cannula flow liters per 2
minute
Physical Exam
General: Respiratory Distress (n)
HEENT: Normocephalic and Moist Mucous Membranes
Cardiovascular: Regular Rhythm and Peripheral Edema (n)
Respiratory: Clear, Crackles (subtle) and Stridor (n)
GI: Soft, Non Distended and Non Tender
Neurology: Awake, Oriented and No Motor Deficits
Skin: Dry
Labs/Micro/Reports
Lab Data
07/17/23 04:15
07/17/23 04:15
Laboratory Results
07/16/23 07/16/23
13:47 14:15
pH Cancelled Cancelled
pCO2 Cancelled Cancelled
pO2 Cancelled Cancelled
HCO3 Cancelled Cancelled
O2 Delivery Level Cancelled Cancelled
Microbiology
07/15/23 08:42 Endotracheal Respiratory Culture - Final
Usual Respiratory Rochelle
07/15/23 08:42 Endotracheal Gram Stain - Final
07/15/23 21:28 Blood/Venous Blood Culture - Preliminary
No Growth in 24 hours- Final report to follow
07/14/23 18:32 Blood/Venous Blood Culture - Preliminary
No Growth in 48 hours- Final report to follow
07/14/23 18:18 Blood/Venous Blood Culture - Preliminary
No Growth in 48 hours- Final report to follow
07/15/23 04:26 Nose Nasal Screen MRSA (PCR) - Final
MRSA not detected - performed by PCR methodology.
07/14/23 18:22 Nasal Swab Influenza Types A & B (TIANA) - Final
Influenza A Positive, NAAT
--- NOTE | 2023-07-17 14:20 | PTCARENOTE ---
Pt transferred to IVU; report given to IVU RN.
--- NOTE | 2023-07-17 15:23 | W.PN.ID1 ---
Date of Service
Date of Service: July 17, 2023
Today's Communication
Continue Oseltamivir to complete 5 days through 07/19/23
Assessment / Plan
# Acute Influenza infection
-Unvaccinated
- Continue Oseltamivir to complete 5 days through 07/19/23
# STEMI
#s/p cardiogenic shock
- 07/14/23 s/p cardiac cath, PCI/stent, Impella device removed 07/15.
# SIRS improving
- No fever since 4am
-Leukocytosis trending down
# IDDM, Aic 7.2
Chief Complaint
-: Fever and Other (Flu)
Subjective / Review of Systems
Extubated. Overall feeling better.
Vital Signs / Physical Exam
Vital Signs
Vital Signs
Temp Pulse Resp BP Pulse Ox
98.6 F 112 20 93/56 96
07/17/23 11:51 07/17/23 13:00 07/17/23 11:51 07/17/23 12:00 07/17/23 13:00
Physical Exam
Constitutional: No Acute Distress and Comfortable
Cardiovascular: Other (tachy)
Pulmonary: Clear (anteriorly)
Gastrointestinal: Soft, Non Tender, Non Distended and Normal Bowel Sounds
Extremities: Negative Edema
Objective Data
Lab Data
Lab Results
07/17/23 04:15
07/17/23 04:15
PT 15.3 Sec (11.4-14.6) H 07/14/23 20:25
INR 1.21 07/14/23 20:25
APTT 73.8 Sec (23.4-35.0) H 07/15/23 08:59
Estimated Creat Clear > 125 ml/min 07/17/23 04:15
Lactic Acid Cancelled 07/16/23 20:00
Total Bilirubin 2.0 mg/dl (0.2-1.3) H 07/15/23 04:26
AST 238 U/L (17-59) H 07/15/23 04:26
ALT 37 U/L (0-50) 07/15/23 04:26
Alkaline Phosphatase 51 U/L (38-126) 07/15/23 04:26
Most recent labs reviewed.
Micro Results:
07/15/23 08:42 Respiratory Culture - Final
Endotracheal Usual Respiratory Rochelle
Gram Stain - Final
07/15/23 21:28 Blood Culture - Preliminary
Blood/Venous No Growth in 24 hours- Final report to follow
07/14/23 18:32 Blood Culture - Preliminary
Blood/Venous No Growth in 48 hours- Final report to follow
07/14/23 18:18 Blood Culture - Preliminary
Blood/Venous No Growth in 48 hours- Final report to follow
07/15/23 04:26 Nasal Screen MRSA (PCR) - Final
Nose MRSA not detected - performed by PCR methodology.
07/14/23 18:22 Influenza Types A & B (TIANA) - Final
Nasal Swab Influenza A Positive, NAAT
07/14/23 CXR: Bilateral perihilar airspace opacities compatible with pulmonary edema.
07/16/23: CXR: Overall low lung volumes are noted without pneumothorax or significant focal parenchymal opacification. No pneumothorax or significant pleural effusion.
--- NOTE | 2023-07-17 15:39 | PTCARENOTE ---
Received patient from CVICU to room 2148 on droplet precautions for influenza. patient in his recliner chair but stating his bottom was sore from sitting and wanted to go back to bed. Patient is awake and alert, oriented x 2, confused about time.
Sitting with his eyes closed, needed encouragement to open his eyes and participate in transferring from the chair to the bed. Required heavy assist of two with the rolling walker. Resting in bed now, IV infusing via cordis at 10ml/hr, remains in ST
on the monitor. Call guerin within reach.
[2023-07-17 17:53] LABS: Glucose - Point of Care 187 mg/dl (70-99)
[2023-07-17] MEDS: NOVOLOG FLEXPEN-LOW RESISTANCE 1 UNITS SC (17:58)
[2023-07-17] MEDS: NOVOLOG FLEXPEN 3 UNITS SC (17:58)
[2023-07-17] MEDS: LIPITOR 80 MG PO (17:59)
--- NOTE | 2023-07-17 18:27 | PTCARENOTE ---
Patient incontinent of a large amount of gloria urine in the bed.
--- NOTE | 2023-07-17 21:02 | PTCARENOTE ---
Assumed care. Patient alert, arouses to name, eyes closed, opens on command, falls back to sleep. 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 Took pills with a sip of water and requires to be fed meals secondary to lethargy. incontinent of urine, purwick place,scrotal edam and bruising. Placed on oxygen POX 88-91% on
room air. Lungs faint expiratory wheezes, clears with coughing. POX on 2 liters NC 97%. ST HR 107, BP 102/59. Bed alarm placed on patient for safety. He did use the call guerin for assistance.
[2023-07-17 22:45] LABS: Glucose - Point of Care 220 mg/dl (70-99)
[2023-07-17] MEDS: NSS 500 IV (22:55)
[2023-07-18] VITALS (10 sets, daily range): BP systolic 104–123; BP diastolic 59–77; PULSE 105; O2SAT 97; BMI 30.1
--- NOTE | 2023-07-18 01:50 | PTCARENOTE ---
Patient awake, ringing the call guerin, 'I have to pee'. Incontinent of dark gloria urine, could not void, PVR 275, care provided. Call guerin in reach
[2023-07-18 05:12] LABS: Hematocrit 26.3 % (39.0-52.0); Mean Corp Hgb Conc. 34.2 g/dL (33.0-37.0); Mean Corpuscular Hgb 28.1 pg (27.0-31.0); Mean Corpuscular Volume 82.2 fL (80.0-94.0); Mean Platelet Volume 10.4 fL (7.4-10.4); Platelet Count 163 10^3/uL (130-400); Red Cell Dist. Width 13.3 % (11.5-14.5); White Blood Cell Count 9.9 10^3/uL (4.8-10.8)
[2023-07-18 05:39] LABS: Blood Urea Nitrogen 15 mg/dl (9-20); Glucose 178 mg/dl (70-99)
[2023-07-18 05:40] LABS: Calcium 7.5 mg/dl (8.4-10.2); Carbon Dioxide 28 mmol/L (22-30); Chloride 105 mmol/L (98-107); Estimated Creatinine Clearance 108 ml/min; Potassium 3.8 mmol/L (3.5-5.1); Sodium 133 mmol/L (135-145); eGFR > 60.00
[2023-07-18 07:17] LABS: Glucose - Point of Care 173 mg/dl (70-99)
--- NOTE | 2023-07-18 07:34 | PN.DE.MGMTRT ---
Insulin Management
- -
07/15/2023: Diabetes Management Consult
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
Pt unable to interview, at bedside, reports that pt routinely follows with Endo Dr. Abdi in [place] and that he was using insulin via V-GO 20 and CGM- Priscilla 2 but she is unable to provide any further informations regarding pt's OP
diabetes regimen. Contacted both Endo-Dr. Abdi and PCP- Dr. Geller offices to gather more information, unfortunately both offices are closed today.
A1C 7.3%, Cr 0.9 eGFR >60. Pt remains intubated in critical condition.
Currently on the glycemic protocol, glucose 79 to 285, requiring 0.3 to 10 units of insulin/hr
Cont current regimen with continuos insulin infusion, reassess readiness to transition to SQ insulin upon extubation.
Give Lantus 15 units 2 hrs before stopping insulin drip.
Start basal/ bolus with corrective SQ insulin if diet is started, otherwise, use basal insulin and Low corrective insulin Q 6hrs if pt remains NPO.
07/18/2023: Diabetes Management F/U:
Pt appears lethargic and confused, unable to interview.
Weaned off insulin infusion to SQ insulin yesterday, no insulin adm prior to d/c of drip.
He was started on NovoLog 3 units AC and Lantus 5 units @ HS, FBG 178 this am, Dr. Thompson has increased his Lantus dose to 10 units @ HS.
Premeal glucose 173-187, requiring additional corrective insulin. Will increase AC NovoLog to 5 units.
Will closely follow and make further insulin adjustment if necessary
Diabetes History
- -
Type of Diabetes: 2 requiring insulin
Pre-Admission Diabetes Regimen
07/18/23
04:29
Creatinine 0.7
Lab Results
Hemoglobin A1c 7.2 % (4.0-5.6) H 07/15/23 04:26
Insulin Pump Settings
IP Diabetes Regimen
07/17/23 07/17/23 07/17/23
09:37 10:16 11:11
Glucose
POC Glucose 180 H 174 H 141 H
07/17/23 07/17/23 07/17/23
12:05 17:51 22:43
Glucose
POC Glucose 118 H 187 H 220 H
07/18/23 07/18/23
04:29 07:16
Glucose 178 H
POC Glucose 173 H
Meal type: Dinner
Meal type: Breakfast
Amount consumed: 50%
Patient Education
--- NOTE | 2023-07-18 08:01 | W.PN.HOSP.TC ---
Today's Communication/Plan
-
PT/OT
Assessment / Plan
Assessment / Plan
Gen-lethargic but arousable. NAD
HEENT-NC, AT, anicteric, clear oral mm
Neck-supple
CV-reg, no M, +S1/S2
Lungs-clear B/L
Abd-soft, NT, ND
Ext-no edema
Musculoskeletal-no cyanosis, clubbing
Skin-warm and dry
Neuro-grossly non-focal
Psych-calm, cooperative
Acute TME -remains confused. Nursing reports he has been confused since extubation. Etiology of acute TME likely due to acute critical illness including acute MN, sepsis, influenza, respiratory failure.
STEMI
Cardiogenic shock status post Impella -shock resolved. Off pressors.
- R/LHC: �Right dominant circulation with a PERSONAL BANKER of the proximal RCA, a 90% proximal LAD lesion lesion, a 70% mid LAD lesion, a long, 50% distal LAD lesion and a hazy, densely calcified 90% ostial circumflex lesion immediately proximal to the
bifurcation of the circumflex and primary obtuse marginal
- s/p stent of OM and lithotripsy
- post cath Echo: Normal left ventricular chamber size with lateral akinesis and mildly reduced left ventricular systolic function. Left ventricular ejection fraction is 40%. normal RV function.
- s/p Impella which is now explanted. Levophed weaned off.
- continue ASA/Brilinta/Statin
- continue IV Amiodarone - requires intensive monitoring
- follow CTS and Cardiology management
Right groin hematoma -ultrasound did not confirm hematoma, AV fistula, pseudoaneurysm.
Acute hypoxic respiratory failure -resolved. Extubated 2/3. Currently on room air.
Sepsis likely from influenza A -continue Tamiflu, last day 07/19.
DM2 with hyperglycemia -uses insulin pump at home. Currently pump is off. Getting basal/bolus insulin.
- Patient appears to be on V-GO 20 insulin patch which is held
- wean from critical care glycemic protocol/insulin drip to SC insulin + SSI
- PIZZA DELIVERY following
Hyponatremia -present on admission. Sodium stable.
Hypocalcemia -ionized calcium 1.1. Magnesium is normal. Calcium was repleted yesterday. Will follow and repeat albumin.
Acute anemia -normocytic. Due to acute critical illness. Hemoglobin was normal on admission. Doubt active bleeding given very slow drop. Monitor for now.
Essential hypertension
- hold lisinopril
Obesity due to excess calories
DVT ppx: SCDs
Code: Full
PT/OT
Anticipated Discharge: > 48 hours
Subjective/Interval History
-
Date of Service: July 18, 2023
Patient seen and examined. Seems sleepy this morning. Answering questions. Denies chest pain. States he is short of breath but then drifts off to sleep. Oriented to hospital and month but not year.
Objective Data
-
Labs:
Laboratory Results
07/18/23
04:29
WBC 9.9
Hgb 9.0 L
Hct 26.3 L
Plt Count 163
Sodium 133 L
Potassium 3.8
Chloride 105
Carbon Dioxide 28
BUN 15
Creatinine 0.7
Glucose 178 H
Calcium 7.5 L
Vital Signs:
Vital Signs
Temp Pulse Resp BP Pulse Ox
98.9 F 119 16 105/68 98
07/18/23 04:33 07/18/23 07:30 07/18/23 04:33 07/18/23 07:13 07/18/23 04:33
I&O
07/17/23 07/18/23 07/19/23
06:59 06:59 06:59
Intake Total 1082.1 / 1095.6 372.8 / 372.8
Output Total 2525 / 2650 485 / 485
Balance -1442.9 / -1554.4 -112.2 / -112.2
Review of Systems
-
Unable to obtain full review of systems at this time due to: Acuity
History Source: Patient
All other systems: Reviewed and negative
[2023-07-18] MEDS: NOVOLOG FLEXPEN-LOW RESISTANCE 1 UNITS SC ×2 (08:55→17:52)
[2023-07-18] MEDS: NOVOLOG FLEXPEN 5 UNITS SC ×3 (08:56→17:52)
[2023-07-18] MEDS: MIRALAX 17 GRAMS PO (08:58)
[2023-07-18] MEDS: LOW STRENGTH ASPIRIN 81 MG PO (08:58)
[2023-07-18] MEDS: MAGNESIUM OXIDE 500 MG PO ×2 (08:58→20:04)
[2023-07-18] MEDS: BRILINTA 90 MG PO ×2 (08:58→20:04)
[2023-07-18] MEDS: LANTUS 0.100000000000000006 UNITS SC (08:59)
[2023-07-18] MEDS: TAMIFLU 75 MG PO ×2 (08:59→20:04)
[2023-07-18] MEDS: FLUSH (NSS) 3 FLUSH IV (09:00)
[2023-07-18] MEDS: PROTONIX 40 MG PO (09:02)
--- NOTE | 2023-07-18 09:07 | W.PN.PUL3 ---
Today's Communication / Plan
-
Tamiflu
O2
IS
Reconsult prn
Assessment
-
Assessment:
Mr Edmundo Glass is a 67/M adm 07-14 with chest tightness since 8pm on night NURSE SANE. At time of ER visit, 18hrs of constant chest tightness associated with VARELA. At ER, not in resp distress, POx 98%, normal BP, tachycardic, afebrile, EKG with ST
depression from V2-6, elevated troponin. Taken to labor specialist, during cardiac cath he presented hypoxemia and then vomit, anesthesia proceeded to intubation to protect airway. H&P and C report pending, needed circulatory support device (impella). D/w
Dr Arroyo at bedside, stented high degree lesion at Cx
Impression:
AMI
S/p R/LHC 07-14-23: Cx stent, lithotripsy of underexpanded segment of Cx stent
Acute respiratory failure during prep for heart catheterization: intubated by Anesthesia 07-14, extubated 07-16
Influenza A
Conditions NURSE SANE:
IDDM, on insulin pump
Sinus arrhythmia
L rotator cuff repair
Nonsmoker
Plan:
AMI: Adm to CVICU after R/LHC for AMI, needed intubation and circulatory support device
Required ventilator support until 07-16, extubated with no issue
ASA, ticagrelor, statin to continue
Blood cxs so far negative
MRSA screening negative
Resp secs cx negative
COVID negative
Influenza A positive, on oseltamivir, to complete 5 d course through 07-19
Empiric atbs: vanco/zosyn, discontinued 07-16
On O2 1.5L POx 96% at rest at time of visit
Check O2 needs PTD
Continue IS
Reconsult as needed
Diagnostic tests:
CXR 07-14-23: portable, no comparison films, pulm vasc congestion with bat wing pattern, no pneumothorax or pleural effusions. ET, GT. [facility]
CXR 07-15-23: portable, improved pulm parenchymal and vasc congestion. ET/GT. [facility]. Impella
CXR 07-16-23: portable, no pulm edema but mild pulm vasc congestion. ET. GT. [facility]
CXR 07-17-23: portable, no infiltrates. [facility]
TTE 07-14-23:
CONCLUSIONS
Normal left ventricular chamber size with lateral akinesis and mildly reduced left ventricular systolic function. Left ventricular ejection fraction is 40% on Impella CP.
Grossly normal right ventricular size and systolic function.
Probably normal atria.
Valves not assessed.
Impella present in aortic root .
Subjective Data
-
Date of Service:
Date of Service: July 18, 2023
Chief Complaint: Pulmonary Follow Up
Subjective:
No major events reported overnight
Remains on low flow O2, in no resp distress
Transferred to IVU
Review of Systems
General: Fever (n), Sweats (n), Chills (n) and Satisfactory Appetite (n)
HEENT: Epistaxis (n)
Cardiopulmonary: Dyspnea (very mild at rest), Cough, Sputum Production (n), Wheezing (n) and Edema (n)
GI: Abdominal Pain (n), Nausea (n) and Vomiting (n)
Neuro: Weakness
Objective Data
Data Reviewed
Vital Signs / I&O / Oxygen:
Vital Signs
Temp Pulse Resp BP Pulse Ox
98.7 F 119 20 105/68 93
07/18/23 07:00 07/18/23 07:30 07/18/23 07:00 07/18/23 07:13 07/18/23 07:00
Intake and Output
07/17/23 07/18/23 07/19/23
06:59 06:59 06:59
Intake Total 1082.1 / 1095.6 372.8 / 372.8
Output Total 2525 / 2650 485 / 485
Balance -1442.9 / -1554.4 -112.2 / -112.2
SaO2 [CPAP] 99
SaO2 [A/C] 99
SaO2 93
Nasal Cannula flow liters per 2
minute
Physical Exam
General: Comfortable
HEENT: Normocephalic and Moist Mucous Membranes
Cardiovascular: Regular Rhythm, Murmur (n) and Peripheral Edema (n)
Respiratory: Rhonchi and Stridor (n)
GI: Soft, Non Distended and Non Tender
Neurology: Awake, Oriented and No Motor Deficits
Skin: Dry
Labs/Micro/Reports
Lab Data
07/18/23 04:29
07/18/23 04:29
Microbiology
07/15/23 21:28 Blood/Venous Blood Culture - Preliminary
No Growth in 48 hours- Final report to follow
07/14/23 18:32 Blood/Venous Blood Culture - Preliminary
No Growth in 72 hours- Final report to follow
07/14/23 18:18 Blood/Venous Blood Culture - Preliminary
No Growth in 72 hours- Final report to follow
07/15/23 08:42 Endotracheal Respiratory Culture - Final
Usual Respiratory Rochelle
07/15/23 08:42 Endotracheal Gram Stain - Final
07/15/23 04:26 Nose Nasal Screen MRSA (PCR) - Final
MRSA not detected - performed by PCR methodology.
[2023-07-18] MEDS: NOVOLOG FLEXPEN SC (09:28)
--- NOTE | 2023-07-18 10:51 | W.PN.UPDATE ---
Update Note
Progress Note Update
patient is s/p PCI and impella placement and now on brilinta. Will eventually require CABG. Patient was given follow up appointment with Dr. Garcia on 08/04/[address] surgery to sign off. Please reconsult if needed.
--- NOTE | 2023-07-18 11:49 | W.PN.CD ---
Today's Communication / Plan
-
Transfuse one unit PRBC's.
Start metoprolol succinate 12.5 mg daily, first dose now.
Monitor.
Bolus LR 500 mL if more volume needed after PRBC's.
Impression / Plan
-
Impression/Plan: 67 y/o male with HTN, HLD, and IDDM presenting with inferoposterior STEMI and fever, found to have multivessel disease s/p PCI to ostial LCx with post hoc coronary lithotripsy with cardiogenic shock requiring Impella placement and
influenza A.
#STEMI
-Acute.
-S/P Successful PCI of ostial LCx ([employer] [address] 2.5 x 12 PRAKASH, post dilated with 2.5 NC balloon to 18 ROSALINDA).
-IVUS showed underexpansion in proximal margin requiring post hoc intracoronary lithotripsy (2.5 x 12 Shockwave balloon) and aggressive post dilation (2.75 x 12 NC balloon to 16 ROSALINDA).
-Troponin up to 38; peaked and trended down.
-Continue DAPT with ASA and ticagrelor for at least 12 months followed by aspirin indefinitely.
-No longer requiring norepinephrine. CI on 07/17/2023 was > 4 (!).
-Continue atorvastatin 80 mg daily.
-Start metoprolol succinate 12.5 mg daily, first dose now.
-Transfuse one unit PRBC's for anemia in the context of STEMI/Shock.
#Acute HFrEF/ICM (EF 40%)
-Try to optimize with GDMT as above.
#Shock
-Acute, mixed picture, improving.
-Extubated on 07/16/2023.
-Given high CI with current BP/HR, this appears to be more hypovolemic/distributive.
-Allow to be net positive. Monitor response to PRBC's and bolus LR 500 mL if more volume is needed.
#Residual CAD
-Chronic.
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
-Per CULPRIT SHOCK trial, LAD revascularization deferred at the time of presentation.
-Patient evaluated by CT Surgery; poor candidate for surgical measures at this time-can follow-up with CT Surgery as outpatient for reevaluation once recovered from event.
-Continue high dose, high potency statin.
#Influenza A
-Acute.
-Continue oseltamivir; treatment as per primary team/ID - appreciate input.
#HTN
-Chronic.
-All meds on hold due to hypotension/shock.
#HLD
-Chronic.
-Atorvastatin 80 mg daily.
Subjective/Interval History:
Afebrile since 07/17/2023 @ 04:00.
HR hovering around 100.
BP stable.
SaO2 93% on 2LNC.
Hbg down to 9.0.
DATA:
Groin US, 07/15/2023 (post Impella removal):
IMPRESSION: Negative for pseudoaneurysm formation, hematoma, or arteriovenous fistula.
Cardiac Catheterization/PCI, 07/14/2023:
CONCLUSIONS:
1.� Right dominant circulation with a NAILING MACHINE FEEDER of the proximal RCA, a 90% proximal LAD lesion lesion, a 70% mid LAD lesion, a long, 50% distal LAD lesion and a hazy, densely calcified 90% ostial circumflex lesion immediately proximal to the bifurcation
of the circumflex and primary obtuse marginal, status post successful IVUS guided PCI ([employer] [address] 2.5 x 12 PRAKASH, postdilated with a 2.5 NC balloon to 18 rosalinda).
2.� Post hoc intracoronary lithotripsy and postdilation after IVUS revealed underexpansion of the proximal stent (shockwave 2.5 x 12 lithotripsy balloon, 2.75 x 8 NC balloon to 16 rosalinda).
3.� Normal left ventricular size with severe hypokinesis/akinesis of the lateral/anterolateral wall and moderately depressed systolic function (LV ejection fraction 35-40% on ventriculography).
4.� Severely elevated filling pressures with depressed cardiac function, consistent with cardiogenic shock (LVEDP = 33 mmHg, cardiac index 1.9 L/min/m�).
5.� Status post successful placement of a percutaneous left ventricular assist device (Abiomed Impella CP) via right common femoral approach.
6.� Status post right heart catheterization via right internal jugular approach.
TTE, 07/14/2023:
CONCLUSIONS
�Normal left ventricular chamber size with lateral akinesis and mildly reduced
�left ventricular systolic function. Left ventricular ejection fraction is 40%
�on Impella CP.
�Grossly normal right ventricular size and systolic function.
�Probably normal atria.
�Valves not assessed.
�Impella present in aortic root .
�
�No prior study available for comparison.
Physical Exam
Vital Signs/Labs
Vital Signs
Temp Pulse Resp BP Pulse Ox
37.1 C 119 20 105/68 93
07/18/23 07:00 07/18/23 07:30 07/18/23 07:00 07/18/23 07:13 07/18/23 07:00
07/16/23 07/17/23 07/18/23
11:59 11:59 11:59
Actual Weight 89 kg 87.6 kg 87.2 kg
07/18/23 04:29
07/18/23 04:29
PT 15.3 Sec (11.4-14.6) H 07/14/23 20:25
INR 1.21 07/14/23 20:25
APTT 73.8 Sec (23.4-35.0) H 07/15/23 08:59
Magnesium 2.0 mg/dl (1.6-2.3) 07/18/23 04:29
Triglycerides 135 mg/dl (10-149) 07/17/23 04:15
LDL Cholesterol, Calc 81 mg/dl 07/15/23 04:26
VLDL Cholesterol, Calc 29 mg/dl (0-30) 07/15/23 04:26
HDL Cholesterol 29 mg/dl 07/15/23 04:26
LAB Results
07/15/23 07/17/23
12:03 10:22
Troponin I 35.500 H* 7.440 H*
Physical Exam
Constitutional: No acute distress and Comfortable
EENT: Anicteric and Moist mucous membranes
Cardiovascular: Rhythm & rate is regular, Pedal edema is absent, JVD pressure is normal, S1S2 is normal and Murmur/rub/gallop absent
Respiratory: Respiratory effort normal, Lungs clear to auscul., Wheeze Absent, Crackles Absent and Rhonchi Absent
GI: Soft, Distention absent, Flat, Non tender and Normal bowel sounds
Neuro/Psych: AO x 3
Other: Cath Site (Right femoral access site is C/D/I. There is ecchymosis extending into the scrotum.)
Data Reviewed
-
Date of Service: July 18, 2023
Medical Decision Making: Reviewed Test Results, Independent Historian Assessment, Test Interpretation and Review of Case with other Provider
EKG: Tracing Personally Visualized and interpreted and Report Reviewed by me
Echo: Tracing Personally Visualized and interpreted and Report Reviewed by me
X-Ray/CT/US/MRI/NUC/PET: Image Personally Visualized and interpreted and Report Reviewed by me
Medical Tests (PFT, Pathology etc): Image Personally Visualized and interpreted and Report Reviewed by me
Labs: Labs Reviewed by me
[2023-07-18 12:39] LABS: Glucose - Point of Care 232 mg/dl (70-99)
--- NOTE | 2023-07-18 12:54 | CM ---
cm to wait on PT/OT notes for dc planning.
[2023-07-18] MEDS: NOVOLOG FLEXPEN-LOW RESISTANCE 2 UNITS SC (13:09)
[2023-07-18] MEDS: TOPROL XL 12.5 MG PO (13:12)
--- NOTE | 2023-07-18 13:50 | W.PN.ID1 ---
Date of Service
Date of Service: July 18, 2023
Today's Communication
Continue Oseltamivir to complete 5 days through 07/19/23.
ID will sign off.
Assessment / Plan
# Acute Influenza infection
-Unvaccinated
- Continue Oseltamivir to complete 5 days through 07/19/23
# STEMI
#s/p cardiogenic shock
- 07/14/23 s/p cardiac cath, PCI/stent, Impella device removed 07/15.
# SIRS resolved.
Fever and leukocytosis resolved.
# IDDM, Aic 7.2
Chief Complaint
-: Other (Flu)
Vital Signs / Physical Exam
Vital Signs
Vital Signs
Temp Pulse Resp BP Pulse Ox
98.9 F 108 16 116/75 95
07/18/23 13:17 07/18/23 13:12 07/18/23 13:17 07/18/23 13:12 07/18/23 13:17
Physical Exam
Constitutional: No Acute Distress and Comfortable
Pulmonary: Clear
Gastrointestinal: Soft, Non Tender and Non Distended
Objective Data
Lab Data
Lab Results
07/18/23 04:29
07/18/23 04:29
PT 15.3 Sec (11.4-14.6) H 07/14/23 20:25
INR 1.21 07/14/23 20:25
APTT 73.8 Sec (23.4-35.0) H 07/15/23 08:59
Estimated Creat Clear 108 ml/min 07/18/23 04:29
Lactic Acid Cancelled 07/16/23 20:00
Total Bilirubin 2.0 mg/dl (0.2-1.3) H 07/15/23 04:26
AST 238 U/L (17-59) H 07/15/23 04:26
ALT 37 U/L (0-50) 07/15/23 04:26
Alkaline Phosphatase 51 U/L (38-126) 07/15/23 04:26
Most recent labs reviewed.
Micro Results:
07/15/23 21:28 Blood Culture - Preliminary
Blood/Venous No Growth in 48 hours- Final report to follow
07/14/23 18:32 Blood Culture - Preliminary
Blood/Venous No Growth in 72 hours- Final report to follow
07/14/23 18:18 Blood Culture - Preliminary
Blood/Venous No Growth in 72 hours- Final report to follow
07/15/23 08:42 Respiratory Culture - Final
Endotracheal Usual Respiratory Rochelle
Gram Stain - Final
07/15/23 04:26 Nasal Screen MRSA (PCR) - Final
Nose MRSA not detected - performed by PCR methodology.
07/14/23 18:22 Influenza Types A & B (TIANA) - Final
Nasal Swab Influenza A Positive, NAAT
07/14/23 CXR: Bilateral perihilar airspace opacities compatible with pulmonary edema.
07/16/23: CXR: Overall low lung volumes are noted without pneumothorax or significant focal parenchymal opacification. No pneumothorax or significant pleural effusion.
--- NOTE | 2023-07-18 14:28 | PTCARENOTE ---
Received patient this morning resting in bed. Alert and answers to his name when spoken to, but keeps his eyes closed and appears very sleepy. Speech therapy worked with the patient during morning med pass. No difficulty taking PO meds but having
difficulty feeding himself. Very uncoordinated and upper extremities are edematous, so he needed assistance with meals. Patient grossly incontinent of tea colored urine this morning. When he returned from CT he was incontinent of bloody urine,
Violeta notified and will obtain a UA when able. Remains very edematous and ecchymotic at pubic and right groin area. in visiting now, call guerin within reach. To receive one unit PRBC's today, type and screen sent.
[2023-07-18 17:02] LABS: Glucose - Point of Care 167 mg/dl (70-99)
[2023-07-18] MEDS: LIPITOR 80 MG PO (17:52)
[2023-07-18] MEDS: TYLENOL ORAL SOLUTION 650 MG PO (18:35)
--- NOTE | 2023-07-18 19:06 | PTCARENOTE ---
Patient ordered one unit of PRBC's, type and screen completed and permit signed by Dr. Gallegos with the patient's . While taking pre transfusion VS, temp 100.1. Dr. Arroyo notified, patient to received prn tylenol and proceed with blood
transfusion. One unit PRBC's infusing now, will continue to monitor.
[2023-07-18] MEDS: DUONEB 3 ML INH (20:48)
--- NOTE | 2023-07-18 21:45 | PTCARENOTE ---
Pt rec'd at change of shift lying in bed with family at bedside. Son remains in room at present. Pt lethargic but arousable. oriented to name and place but unable to give correct year and needed couple attempts at birthday with sons help. following
commands when asked to reposition in bed. PRBC's started at change of shift via right cordis however cordis appears positional so last 1/4 of blood infusing via left forearm. lungs diminished without wheeze or crackles noted. good bs, incontinent of
large amt of urine. scant amt of blood noted at penis. Scrotum with +3 swelling and purple.right groin and radial drsg dry and intact. weak but palpable pulses noted throughout. Pt remains on droplet precautions; family adhering to masks while in
room.
[2023-07-18 21:48] LABS: Glucose - Point of Care 221 mg/dl (70-99)
--- NOTE | 2023-07-18 22:57 | PTCARENOTE ---
blood completed. pt passed large soft brown bm on bedpan. Hematest negative. attempted to get UA specimen but pt was unable to go in urinal. remains incontinent of large amt of urine. pt currently afebrile.
[2023-07-19] VITALS (11 sets, daily range): BP systolic 108–119; BP diastolic 64–77; PULSE 104–109; O2SAT 94–97; BMI 29.7
[2023-07-19 04:56] LABS: Ammonia 19 umol/L (9-30)
[2023-07-19 05:18] LABS: Hematocrit 29.4 % (39.0-52.0); Mean Corpuscular Hgb 27.7 pg (27.0-31.0); Mean Corpuscular Volume 81.4 fL (80.0-94.0); Mean Platelet Volume 10.3 fL (7.4-10.4); Platelet Count 157 10^3/uL (130-400); Red Blood Cell Count 3.61 10^6/uL (4.70-6.10); Red Cell Dist. Width 13.4 % (11.5-14.5); White Blood Cell Count 10.2 10^3/uL (4.8-10.8)
[2023-07-19] MEDS: DUONEB 3 ML INH ×4 (05:34→19:18)
[2023-07-19 05:40] LABS: ALT (SGPT) 79 U/L (0-50); AST (SGOT) 179 U/L (17-59); Albumin 3.1 g/dl (3.5-5.0); Alkaline Phosphatase 67 U/L (38-126); Blood Urea Nitrogen 15 mg/dl (9-20); Calcium 7.9 mg/dl (8.4-10.2); Carbon Dioxide 27 mmol/L (22-30); Chloride 104 mmol/L (98-107); Estimated Creatinine Clearance > 125 ml/min; Glucose 153 mg/dl (70-99); Potassium 3.8 mmol/L (3.5-5.1); Sodium 133 mmol/L (135-145); Total Bilirubin 2.2 mg/dl (0.2-1.3); Total Protein 5.7 g/dl (6.3-8.2); eGFR > 60.00
--- NOTE | 2023-07-19 05:50 | PTCARENOTE ---
Pt given complete bed bath with linens changed at 0415. Pt arousable and conversing with staff. repositioned on left side. Pt appeared to be using abd accessory muscles and audible wheeze noted. rsp called mn tx given. 97% on 2 lit n/c. Pt again
grossly incontinent still unable to get pt to void in urinal for ua specimen.
[2023-07-19 07:25] LABS: Glucose - Point of Care 184 mg/dl (70-99)
[2023-07-19] MEDS: LOW STRENGTH ASPIRIN 81 MG PO (07:57)
[2023-07-19] MEDS: TOPROL XL 12.5 MG PO (07:57)
[2023-07-19] MEDS: BRILINTA 90 MG PO ×2 (07:57→20:07)
[2023-07-19] MEDS: MAGNESIUM OXIDE 500 MG PO ×2 (07:57→20:07)
[2023-07-19] MEDS: MIRALAX 17 GRAMS PO (07:57)
[2023-07-19] MEDS: FLUSH (NSS) 3 FLUSH IV (07:57)
[2023-07-19] MEDS: PROTONIX 40 MG PO (07:57)
[2023-07-19] MEDS: LANTUS 0.100000000000000006 UNITS SC (07:58)
[2023-07-19] MEDS: TAMIFLU 75 MG PO ×2 (08:41→20:07)
--- NOTE | 2023-07-19 08:42 | W.PN.CD ---
Today's Communication / Plan
-
-
followup echo today
begin dc planning
outpatient f/u w CTSurg and Cardiol; eventual CABG
Impression / Plan
-
Impression/Plan: 67 y/o male with HTN, HLD, and IDDM presenting with inferoposterior STEMI and fever, found to have multivessel disease - s/p PCI to ostial LCx with post hoc coronary lithotripsy with cardiogenic shock requiring Impella placement
and +influenza A.
#STEMI
-Acute 07/14/23
-S/P Successful PCI of ostial LCx (Medtronic Thuan Labette 2.5 x 12 PRAKASH, post dilated with 2.5 NC balloon to 18 ROSALINDA).
-IVUS showed underexpansion in proximal margin requiring post hoc intracoronary lithotripsy (2.5 x 12 Shockwave balloon) and aggressive post dilation (2.75 x 12 NC balloon to 16 ROSALINDA).
-Troponin up to 38; peaked and trended down.
-Continue DAPT with ASA and ticagrelor for at least 12 months followed by aspirin indefinitely.
-No longer requiring norepinephrine. CI on 07/17/2023 was > 4
-Continue atorvastatin 80 mg daily.
-Started metoprolol succinate 12.5 mg daily, - cannot increase dose due to cough and lowish BP
-Transfused one unit PRBC's for anemia in the context of STEMI/Shock 0n 2/5.
#Acute HFrEF/ICM (EF 40% on day of acute infarct)
-Try to optimize with GDMT as above - limited as noted
-followup echo today (Tue)
#s/p Shock
-Acute, mixed picture, on presentation (HFlu and AMI)
-Extubated on 07/16/2023.
-Now, resolved
#Residual CAD
-Chronic.
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
-Per CULPRIT SHOCK trial, LAD revascularization deferred at the time of presentation. And with OCCUPATIONAL THERAPY MANAGER RCA
-Patient evaluated by CT Surgery; poor candidate for CABG at this time, but will re-eval in office in 4-6 weeks and likely for CABG in 4-6 weeks-
-Continue high dose, high potency statin.
#Influenza A
-Acute.
-Continue oseltamivir; treatment as per primary team/ID - appreciate input.
-final dosing of 5 day course is today(Tue)
#HTN
-Chronic.
-Original meds on hold due to hypotension/shock.
#HLD
-Chronic.
-Atorvastatin 80 mg daily.
Subjective/Interval History:
awake at bedside, weak, forgetful
DATA:
Groin US, 07/15/2023 (post Impella removal):
IMPRESSION: Negative for pseudoaneurysm formation, hematoma, or arteriovenous fistula.
Cardiac Catheterization/PCI, 07/14/2023:
CONCLUSIONS:
1.� Right dominant circulation with a OCCUPATIONAL THERAPY MANAGER of the proximal RCA, a 90% proximal LAD lesion lesion, a 70% mid LAD lesion, a long, 50% distal LAD lesion and a hazy, densely calcified 90% ostial circumflex lesion immediately proximal to the bifurcation
of the circumflex and primary obtuse marginal, status post successful IVUS guided PCI (Medtronic Thuan Labette 2.5 x 12 PRAKASH, postdilated with a 2.5 NC balloon to 18 rosalinda).
2.� Post hoc intracoronary lithotripsy and postdilation after IVUS revealed underexpansion of the proximal stent (shockwave 2.5 x 12 lithotripsy balloon, 2.75 x 8 NC balloon to 16 rosalinda).
3.� Normal left ventricular size with severe hypokinesis/akinesis of the lateral/anterolateral wall and moderately depressed systolic function (LV ejection fraction 35-40% on ventriculography).
4.� Severely elevated filling pressures with depressed cardiac function, consistent with cardiogenic shock (LVEDP = 33 mmHg, cardiac index 1.9 L/min/m�).
5.� Status post successful placement of a percutaneous left ventricular assist device (Abiomed Impella CP) via right common femoral approach.
6.� Status post right heart catheterization via right internal jugular approach.
TTE, 07/14/2023:
CONCLUSIONS
�Normal left ventricular chamber size with lateral akinesis and mildly reduced
�left ventricular systolic function. Left ventricular ejection fraction is 40%
�on Impella CP.
�Grossly normal right ventricular size and systolic function.
�Probably normal atria.
�Valves not assessed.
�Impella present in aortic root .
�
�No prior study available for comparison.
Physical Exam
Vital Signs/Labs
Vital Signs
Temp Pulse Resp BP Pulse Ox
97.9 F 99 16 111/77 94
07/19/23 07:22 07/19/23 07:22 07/19/23 07:22 07/19/23 07:22 07/19/23 07:22
07/18/23 07/19/23 07/20/23
06:59 06:59 06:59
Actual Weight 192 lb 3.889 oz 189 lb 9.561 oz
07/19/23 04:33
07/19/23 04:33
PT 15.3 Sec (11.4-14.6) H 07/14/23 20:25
INR 1.21 07/14/23 20:25
APTT 73.8 Sec (23.4-35.0) H 07/15/23 08:59
Magnesium 2.0 mg/dl (1.6-2.3) 07/18/23 04:29
Triglycerides 135 mg/dl (10-149) 07/17/23 04:15
LDL Cholesterol, Calc 81 mg/dl 07/15/23 04:26
VLDL Cholesterol, Calc 29 mg/dl (0-30) 07/15/23 04:26
HDL Cholesterol 29 mg/dl 07/15/23 04:26
LAB Results
07/17/23
10:22
Troponin I 7.440 H*
Physical Exam
Cardiovascular: Rhythm & rate is regular and Pedal edema is absent
Respiratory: Labored respirations, Wheeze Present and Crackles Present
GI: Soft
Neuro/Psych: Alert
Other: Cath Site (r wrist healing well)
Data Reviewed
-
Date of Service: July 19, 2023
EKG: Tracing Personally Visualized and interpreted
Echo: Report Reviewed by me
Medical Tests (PFT, Pathology etc): Report Reviewed by me and Discussed with Physician
[2023-07-19] MEDS: NOVOLOG FLEXPEN 5 UNITS SC (09:02)
[2023-07-19] MEDS: NOVOLOG FLEXPEN-LOW RESISTANCE 1 UNITS SC (09:03)
--- NOTE | 2023-07-19 09:10 | PTCARENOTE ---
The patient is awake and oriented to name and place. He is forgetful of the date. He is groggy but easily arousable. He knows he had a heart attack and was stented, he also knows he has the flu. However, he didn't realize that he still has artery
disease and in need of a cabg in the future. He was assisted to the chair with a RW x2 assist. He swallowed his pills without difficulty and ate his breakfast without assistance. His call guerin is within reach and he did tell me how to properly use
it if he needs me.
--- NOTE | 2023-07-19 09:21 | W.PN.HOSP.TC ---
Today's Communication/Plan
-
Add Mucinex
Acapella
Discharge planning
Assessment / Plan
Assessment / Plan
Gen-awake, alert, NAD
HEENT-NC, AT, anicteric, clear oral mm
Neck-supple
CV-reg, no M, +S1/S2
Lungs-clear B/L
Abd-soft, NT, ND
Ext-no edema
Musculoskeletal-no cyanosis, clubbing
Skin-warm and dry
Neuro-grossly non-focal
Psych-calm, cooperative
Acute TME -improved.
STEMI
Cardiogenic shock status post Impella -shock resolved. Off pressors.
- R/LHC: �Right dominant circulation with a LINING REPAIRER of the proximal RCA, a 90% proximal LAD lesion lesion, a 70% mid LAD lesion, a long, 50% distal LAD lesion and a hazy, densely calcified 90% ostial circumflex lesion immediately proximal to the
bifurcation of the circumflex and primary obtuse marginal
- s/p stent of OM and lithotripsy
- post cath Echo: Normal left ventricular chamber size with lateral akinesis and mildly reduced left ventricular systolic function. Left ventricular ejection fraction is 40%. normal RV function.
- s/p Impella which is now explanted. Levophed weaned off.
- continue ASA/Brilinta/Statin
-Discussed with cardiology, Dr. Win, plan for CABG in several weeks time after he has recovered.
Right groin hematoma -ultrasound did not confirm hematoma, AV fistula, pseudoaneurysm.
Acute hypoxic respiratory failure -resolved. Extubated 2/3. Currently on room air.
Sepsis likely from influenza A -continue Tamiflu, last day 2.
DM2 with hyperglycemia -uses insulin pump at home. Currently pump is off. Getting basal/bolus insulin. Hemoglobin A1c 7.2%.
- Patient appears to be on V-GO 20 insulin patch which is held
- wean from critical care glycemic protocol/insulin drip to SC insulin + SSI
- GLASS VIAL FILLER following
Hyponatremia -present on admission. Sodium stable.
Hypocalcemia -ionized calcium 1.1. Magnesium is normal. Calcium improving, 7.9 today. Albumin 3.1. Corrected calcium 8.6.
Acute anemia -normocytic. Due to acute critical illness. Hemoglobin was normal on admission. Doubt active bleeding given very slow drop. Patient was transfused 1 unit of blood on 07/18 for hemoglobin of 9.0 per cardiology orders, hemoglobin 10.0
today.
Elevated LFTs -possibly due to cardiogenic shock, ischemic hepatitis. AST improving. Hold atorvastatin for now.
Essential hypertension - stable.
Obesity due to excess calories
DVT ppx: SCDs
Code: Full
Dispo - anticipate discharge to acute rehab pending insurance authorization. Discussed with cardiology and case management. Physiatry consulted. Cardiology has cleared him for discharge.
Anticipated Discharge: Within 24 hours
Subjective/Interval History
-
Date of Service: July 19, 2023
Patient seen and examined. Eating breakfast. Complaining of cough.
Objective Data
-
Labs:
Laboratory Results
07/19/23
04:33
WBC 10.2
Hgb 10.0 L
Hct 29.4 L
Plt Count 157
Sodium 133 L
Potassium 3.8
Chloride 104
Carbon Dioxide 27
BUN 15
Creatinine 0.6 L
Glucose 153 H
Calcium 7.9 L
Total Bilirubin 2.2 H
AST 179 H
ALT 79 H
Alkaline Phosphatase 67
Vital Signs:
Vital Signs
Temp Pulse Resp BP Pulse Ox
97.9 F 99 16 111/77 94
07/19/23 07:22 07/19/23 07:22 07/19/23 07:22 07/19/23 07:22 07/19/23 07:22
I&O
07/18/23 07/19/23 07/20/23
06:59 06:59 06:59
Intake Total 372.8 / 372.8 840 / 840
Output Total 485 / 485
Balance -112.2 / -112.2 840 / 840
Review of Systems
-
History Source: Patient
All other systems: Reviewed and negative
[2023-07-19] MEDS: MUCINEX 600 MG PO ×2 (10:12→20:07)
--- NOTE | 2023-07-19 10:29 | PN.DE.MGMTRT ---
Insulin Management
- -
07/15/2023: Diabetes Management Consult
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
Pt unable to interview, at bedside, reports that pt routinely follows with Endo Dr. Abdi in [place] and that he was using insulin via V-GO 20 and CGM- Priscilla 2 but she is unable to provide any further informations regarding pt's OP
diabetes regimen. Contacted both Endo-Dr. Abdi and PCP- Dr. Geller offices to gather more information, unfortunately both offices are closed today.
A1C 7.3%, Cr 0.9 eGFR >60. Pt remains intubated in critical condition.
Currently on the glycemic protocol, glucose 79 to 285, requiring 0.3 to 10 units of insulin/hr
Cont current regimen with continuos insulin infusion, reassess readiness to transition to SQ insulin upon extubation.
Give Lantus 15 units 2 hrs before stopping insulin drip.
Start basal/ bolus with corrective SQ insulin if diet is started, otherwise, use basal insulin and Low corrective insulin Q 6hrs if pt remains NPO.
07/18/2023: Diabetes Management F/U:
Pt appears lethargic and confused, unable to interview.
Weaned off insulin infusion to SQ insulin yesterday, no insulin adm prior to d/c of drip.
He was started on NovoLog 3 units AC and Lantus 5 units @ HS, FBG 178 this am, Dr. Thompson has increased his Lantus dose to 10 units @ HS.
Premeal glucose 173-187, requiring additional corrective insulin. Will increase AC NovoLog to 5 units.
Will closely follow and make further insulin adjustment if necessary
07/19/2023 Diabetes Management Follow up
Patient awake and alert able to answer questions. States he has had diabetes over [address] Abdi. VGO is off at this time. When questioned Patient states he did take levemir for a long acting insulin but he is unsure of dose. He is
receiving lantus 10 units in AM, glucose up to 221 @ HS and 184 this AM/. Will increase AM lantus to 13 units and AC novolog to 6 units with low corrective. I discussed with patient that levemir will be taken off market in September so will take this
opportunity to transition to lantus. He does have his Priscilla on.
Diabetes History
- -
Type of Diabetes: 2 requiring insulin
Pre-Admission Diabetes Regimen
07/19/23
04:33
Creatinine 0.6 L
Lab Results
Hemoglobin A1c 7.2 % (4.0-5.6) H 07/15/23 04:26
Insulin Pump Settings
IP Diabetes Regimen
07/18/23 07/18/23 07/18/23
12:38 17:01 21:47
Glucose
POC Glucose 232 H 167 H 221 H
07/19/23 07/19/23
04:33 07:24
Glucose 153 H
POC Glucose 184 H
Meal type: Lunch
Meal type: Breakfast
Amount consumed: 50%
Amount consumed: 50%
Patient Education
[2023-07-19 12:19] LABS: Glucose - Point of Care 276 mg/dl (70-99)
[2023-07-19] MEDS: NOVOLOG FLEXPEN-LOW RESISTANCE 3 UNITS SC (13:14)
[2023-07-19] MEDS: NOVOLOG FLEXPEN 6 UNITS SC ×2 (13:14→19:00)
--- NOTE | 2023-07-19 16:04 | CON.MD ---
Documented by User: Livia Schmid PA-C 07/19/23 18:18
Consultation - Medical
-
Referring Provider: Violeta Dutta
Chief Complaint: Debility, NM, s/p Stenting
History of Present Illness: 67 year-old male with PMH of (HTN, Hyperlipidemia, NIDDM, Diabetic retinopathy, psoriasis) who developed 'indigestion' after eating chili last night around 5pm, the pain continued through the night and this morning he
presented to the ER with 8/[address] with ST elevations. He was given heparin, Brilinta, ASA and brought urgently to the earthmoving labourer. Cardiogenic shock status post PCI and Impella device. Tested positive for flu. Hypoxemia requiring
intubation 07/14, extubated 07/16. shock resolved.� Off pressors. Sepsis likely from influenza A -continue Tamiflu, last day 07/19.
R/LHC: �Right dominant circulation with a CANE FURNITURE MAKER of the proximal RCA, a 90% proximal LAD lesion lesion, a 70% mid LAD lesion, a long, 50% distal LAD lesion and a hazy, densely calcified 90% ostial circumflex lesion immediately proximal to the
bifurcation of the circumflex and primary obtuse marginal
- s/p stent of OM and lithotripsy
- post cath Echo: Normal left ventricular chamber size with lateral akinesis and mildly reduced left ventricular systolic function. Left ventricular ejection fraction is 40%. normal RV function.
Impella now explanted. Levophed weaned off.
- continue ASA/Brilinta/Statin
cardiology, Dr. Win, plan for CABG in several weeks time after he has recovered.
Right groin hematoma -ultrasound did not confirm hematoma, AV fistula, pseudoaneurysm.
Past Medical History: HTN, Hyperlipidemia, NIDDM, Diabetic retinopathy, psoriasis
Procedure History: Left rotator cuff repair
Family History: Father 92 of CHF, Mother 82 Alzheimers, DM
Social History:
Functional Level Premorbidly: Independent for all activities.
Functional Level Currently: Bed mobility with supine to sit�moderate assist, sit to supine�moderate assist, trunk and lower extremity assist�able to advance lower extremity to edge of bed and needed help reaching for rail, transfer from sit to
stand�mod assist. Ambulation�took sidesteps along edge of bed with rolling walker and mod assist x 1 for balance and assistance advancing rolling walker, balance fair with rolling walker. OT:Assist of 2, impaired attention, impaired short-term
memory, impaired problem-solving/executive function. Eating�set up, grooming�min assist, toileting�dependent, lower extremity care�max assist
Tobacco: Denies
Alcohol: Denies
Drug use: Denies
Lives with: Luz and adopted two sons 37yo and 19yo
24-hour assistance available: yes
Number of floors: Split level
# steps to enter: 1-2
# steps to second floor: 8 from kitchen
Potential First floor set up:yes, but no shower
Driving: yes
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
�
Allergies:
Allergy/AdvReac Type Severity Reaction Status Date / Time
No Known Allergies Allergy Unverified 07/14/23 16:22
Review of Systems:
Constitutional: (x) Normal _
Eye: (x) Normal _
Ear/Nose/Throat: (x) Normal _
Respiratory: (x) Flu
Cardiovascular: (x) NM, cad s/p stent
Gastrointestinal: (x) Normal _
Genitourinary: (x)
Musculoskeletal: (x) Normal _
Integumentary: (x) Normal _
Neurologic: (x) Normal _
Psychiatric: (x) Normal _
Endocrine: (x) Diabetes
Hematologic/Lymphatic: (x) Normal _
Allergic/Immunologic: (x) Normal _
Medications:
Active Current Visit Medication List
Category Date Time Status
Acetaminophen [Tylenol Oral Solution] Med 07/15/23 13:31 Active
650 mg PO Q6HPRN PRN
Albumin Human 5% 250 ml [Albumin 5%] Med 07/14/23 19:00 Active
12.5 grams in 250 ml IV [id number]
Aspirin Chewable [Low Strength Aspirin] Med 07/17/23 12:20 Active
81 mg PO DAILY
Dextrose 50%-Water [Dextrose 50% Syringe] Med 07/17/23 13:08 Active
12.5 grams IV [id number] PRN
Fentanyl Citrate/Pf [Sublimaze] Med 07/14/23 17:46 Active
50 mcg IV [id number] PRN
Flush (0.9% Sodium Chloride) [Flush (Nss)] Med 07/14/23 22:00 Active
See Dose Instructions IV PER PROTOCOL
Glucagon [GlucaGen] Med 07/17/23 13:08 Active
1 mg IM PRN PRN
Guaifenesin [Mucinex] Med 07/19/23 20:00 Active
600 mg PO Q12
Insulin Aspart Corrective Low [Novolog Flexpen-Low Med 07/17/23 16:30 Active
Resistance]
See Protocol SC AC
Insulin Aspart Pen [Novolog Flexpen] Med 07/19/23 11:30 Active
6 units SC AC
Insulin Glargine Lantus [Lantus] 13 units Med 07/20/23 08:00 Active
Subcutaneous Insulin Syringe [Syringe-Insulin] 0 unit
SC DAILY
Ipratropium/Albuterol Sulfate [Duoneb] Med 07/18/23 20:00 Active
3 ml INH R QID
Magnesium Oxide Med 07/17/23 08:00 Active
500 mg PO BID
Metoprolol Xl [Toprol Xl] Med 07/18/23 13:00 Active
12.5 mg PO DAILY
Ondansetron Injectable [Zofran] Med 07/16/23 09:05 Active
4 mg IV Q6HPRN PRN
Oseltamivir [Tamiflu] Med 07/15/23 08:00 Active
75 mg PO BID
Pantoprazole [Protonix] Med 07/18/23 08:00 Active
40 mg PO DAILY
Phenol 1.4% Montgomery [Chloraseptic/Sore Throat Montgomery] Med 07/16/23 23:53 Active
See Dose Instructions PO Q2HPRN PRN
Polyethylene Glycol Powder [Miralax] Med 07/17/23 12:20 Active
17 grams PO DAILY
Sodium Bicarbonate 25 meq Med 07/14/23 19:00 Active
Dextrose 5%/Water 1000 ml [D5w] 1,000 ml
INF CATH PRN
Ticagrelor [Brilinta] Med 07/17/23 08:00 Active
90 mg PO BID
Vitals:
Temp Pulse Resp BP Pulse Ox
98.1 F 96 16 113/73 95
07/19/23 15:23 07/19/23 15:34 07/19/23 15:34 07/19/23 15:23 07/19/23 15:34
Height 5 ft 7 in
Actual Weight 86 kg
Body Mass Index (BMI) 29.7
Physical Exam:
General Appearance/Observation: Well-developed, well-nourished individual in no apparent distress.
Pain/Comfort Assessment: Denies
Mood/Affect: Appropriate, pleasant
Integumentary/Operative Site:
�� Pressure Ulcer Evaluation: absent over heels.
��
�� Other Type of Wound: hematoma- right groin
��
Eyes: Conjunctiva/Lids: normal ��� Pupils: pupils equal round and reactive to light and Accommodation
Ears/Nose/Throat: oral mucosa moist,� throat clear.������������ Lips/Teeth/Gums: normal
Neck: No muscle spasm or tenderness
Cardiovascular: Heart: regular, no murmur
Pulses: dorsalis pedis 1+ bilaterally
Respiratory: Respiratory Effort/Chest Expansion: normal ������ Auscultation: Clear to auscultation bilaterally
Gastrointestinal: abdomen not tender, no distension, normal abdominal bowel sounds
Genitourinary: No Warren
Extremities: Edema: None Cyanosis: None Trophic changes: None
Neurology Exam:
Orientation: Alert, Oriented to self, place after saying [facility] first. Says spring
Memory: Impaired, slow to process
Higher cortical function- able to count backward by 3
Repetition:
Comprehension: slow processing
Two step command: slow processing
Naming: Intact
Cranial Nerves:
�� CNII: Pupillary light reflex: Intact��� Visual Field: Intact
�� CN III, IV, : Extraocular muscles: Intact
�� CN V: Facial Sensation at Forehead: Intact, Maxilla: Intact, Mandible: Intact
�� CN VII: Facial movement: Symmetric
�� CN VIII: Hearing: Normal
�� CN IX/X: Speech & swallow: Normal, Position of Uvula: Midline
�� CN XI: Shoulder shrug: Symmetric
�� CN XII: Tongue protrusion: Midline
Sensory:
�� Light touch: Intact in bilateral upper and lower extremities
��
Reflexes:
�� Biceps: 2+ bilaterally
�� Brachioradialis: 2+ bilaterally
�� Triceps: 2+ bilaterally
�� Patellar: 2+ bilaterally
�� Achilles: absent+ bilaterally
�� Babinski: Down going bilaterally
�� Clonus: None
�� Milena: Negative bilaterally
Cerebellar: Dysmetria/Ataxia:
Musculoskeletal:
Motor: (Manual muscle scale 0-5)
Muscle SA EF WE EE FF FA HF KE DF EHL PF
Right� 4 4 4 4 4 4 4 4 4 4
Left 4 4 4 4 4 4 4 4 4 4
Tone: Normal in all extremities
Range of Motion: Passively within normal limits in all extremities
Lab Results
Labs
WBC 10.2 10^3/uL (4.8-10.8) 07/19/23 04:33
RBC 3.61 10^6/uL (4.70-6.10) L 07/19/23 04:33
Hgb 10.0 g/dL (13.0-18.0) L 07/19/23 04:33
Hct 29.4 % (39.0-52.0) L 07/19/23 04:33
MCV 81.4 fL (80.0-94.0) 07/19/23 04:33
MCH 27.7 pg (27.0-31.0) 07/19/23 04:33
MCHC 34.0 g/dL (33.0-37.0) 07/19/23 04:33
RDW 13.4 % (11.5-14.5) 07/19/23 04:33
Plt Count 157 10^3/uL (130-400) 07/19/23 04:33
MPV 10.3 fL (7.4-10.4) 07/19/23 04:33
Abs Immat Gran (auto) 0.1 10^3/uL (0-0.05) H 07/14/23 17:50
Absolute Neuts (auto) 11.2 10^3/uL (1.4-6.5) H 07/14/23 17:50
Absolute Lymphs (auto) 0.6 10^3/uL (1.2-3.4) L 07/14/23 17:50
Absolute Monos (auto) 1.3 10^3/uL (0.1-0.6) H 07/14/23 17:50
Absolute Eos (auto) 0.0 10^3/uL (0-0.7) 07/14/23 17:50
Absolute Basos (auto) 0.1 10^3/uL (0-0.2) 07/14/23 17:50
Immature Gran % 0.5 % (0-0.5) 07/14/23 17:50
Neutrophils % 84.2 % (42.2-75.2) H 07/14/23 17:50
Lymphocytes % 4.6 % (20.5-51.1) L 07/14/23 17:50
Monocytes % 10.0 % (1.7-9.3) H 07/14/23 17:50
Eosinophils % 0.2 % (0-6) 07/14/23 17:50
Basophils % 0.5 % (0-2) 07/14/23 17:50
Nucleated RBC % 0 % (-) 07/14/23 17:50
PT 15.3 Sec (11.4-14.6) H 07/14/23 20:25
INR 1.21 07/14/23 20:25
APTT 73.8 Sec (23.4-35.0) H 07/15/23 08:59
pH Cancelled 07/16/23 14:15
pCO2 Cancelled 07/16/23 14:15
pO2 Cancelled 07/16/23 14:15
HCO3 Cancelled 07/16/23 14:15
Base Excess Cancelled 07/16/23 14:15
ABG O2 Sat (Measured) Cancelled 07/16/23 14:15
Potassium 3.9 mMOL/L (3.5-5.1) 07/14/23 20:25
O2 Delivery Level Cancelled 07/16/23 14:15
Sodium 133 mmol/L (135-145) L 07/19/23 04:33
Potassium 3.8 mmol/L (3.5-5.1) 07/19/23 04:33
Chloride 104 mmol/L (98-107) 07/19/23 04:33
Carbon Dioxide 27 mmol/L (22-30) 07/19/23 04:33
BUN 15 mg/dl (9-20) 07/19/23 04:33
Creatinine 0.6 mg/dL (0.7-1.3) L 07/19/23 04:33
Estimated Creat Clear > 125 ml/min 07/19/23 04:33
eGFR > 60.00 07/19/23 04:33
Glucose 153 mg/dl (70-99) H 07/19/23 04:33
Hemoglobin A1c 7.2 % (4.0-5.6) H 07/15/23 04:26
Lactic Acid Cancelled 07/16/23 20:00
Calcium 7.9 mg/dl (8.4-10.2) L 07/19/23 04:33
Ionized Calcium 1.11 mMOL/L (1.15-1.33) L 07/16/23 03:14
Magnesium 2.0 mg/dl (1.6-2.3) 07/18/23 04:29
Total Bilirubin 2.2 mg/dl (0.2-1.3) H 07/19/23 04:33
AST 179 U/L (17-59) H 07/19/23 04:33
ALT 79 U/L (0-50) H 07/19/23 04:33
Alkaline Phosphatase 67 U/L (38-126) 07/19/23 04:33
Ammonia 19 umol/L (9-30) 07/19/23 04:33
Lactate Dehydrogenase 407 U/L (120-246) H 07/14/23 20:25
Troponin I 7.440 ng/ml H* 07/17/23 10:22
Total Protein 5.7 g/dl (6.3-8.2) L 07/19/23 04:33
Albumin 3.1 g/dl (3.5-5.0) L 07/19/23 04:33
Triglycerides 135 mg/dl (10-149) 07/17/23 04:15
Total Cholesterol 139 mg/dl (50-199) 07/15/23 04:26
LDL Cholesterol, Calc 81 mg/dl 07/15/23 04:26
VLDL Cholesterol, Calc 29 mg/dl (0-30) 07/15/23 04:26
HDL Cholesterol 29 mg/dl 07/15/23 04:26
Urine Color Yellow 07/14/23 18:19
Urine Clarity Clear (Clear) 07/14/23 18:19
Urine pH 5.0 (5.0-9.0) 07/14/23 18:19
Ur Specific [place] 1.010 (<1.030) 07/14/23 18:19
Urine Ketones 1+ (Negative) A 07/14/23 18:19
Ur Occult Blood Reflex 4+ (Negative) A 07/14/23 18:19
Urine Nitrite (Reflex) Negative (Negative) 07/14/23 18:19
Urine Bilirubin Negative (Negative) 07/14/23 18:19
Urine Urobilinogen Negative (Neg - 1+) 07/14/23 18:19
Leukocyte Esterase Rfl Negative (Negative) 07/14/23 18:19
Urine RBC 40-50 /HPF (0-2) A 07/14/23 18:19
Urine WBC (Reflex) 0-2 /HPF (0-5) 07/14/23 18:19
Ur Squamous Epith Cells 0-2 /LPF (Few) 07/14/23 18:19
Urine Glucose Negative (Negative) 07/14/23 18:19
Urine Albumin (Reflex) Trace (Neg - Trace) 07/14/23 18:19
SARS-CoV-2 Antigen Negative (Negative) 07/14/23 18:19
POC Glucose 276 mg/dl (70-99) H 07/19/23 12:18
POC ACT Low Range 155 Seconds (116-155) 07/14/23 20:03
Blood Type B NEG 07/18/23 13:44
Blood Type Confirm B NEG 07/18/23 15:20
Antibody Screen Negative (Negative) 07/18/23 13:44
Crossmatch IS Only See Detail 07/18/23 13:44
�
Diagnostic Results: as per HPI
Assessment 67 year-old male with PMH of (HTN, Hyperlipidemia, NIDDM, Diabetic retinopathy, psoriasis)EKG ST with ST elevations. He was given heparin, Brilinta, ASA and brought urgently to the earthmoving labourer for stenting. Cardiogenic shock status post
PCI and Impella device. Tested positive for flu. Hypoxemia requiring intubation 07/14, extubated 2. shock resolved.� Off pressors. Sepsis likely from influenza A -continue Tamiflu, last day 07/19. Patient with deconditioning.
Plan
PT/OT to increase independence with ADLs, improve balance, coordination, endurance, strength, mobility, community reintegration, decreased burden of care on others and family education.
NM/CAD: S/P stent of OM and lithotripsy-continue ASA/Brilinta/Statin
HTN: continue medications, monitor closely
HLD: Statin
Coronary artery disease : Aspirin 81mg qd, statin, Metoprolol 12.5mg
DM II: Accu-Cheks, insulin sliding scale, glargine 13 units in device, Aspart 6 units SC AC
Acute hypoxic respiratory failure -resolved.� Extubated 07/16.� Currently on room air
FLU:Acute Influenza infection.Continue Oseltamivir to complete 5 days through 07/19/23. Albuterol/IPratropium neb
Anemia: normocytic.� Due to acute critical illness.�Patient was transfused 1 unit of blood on 07/18 for hemoglobin of 9.0 per cardiology orders, hemoglobin 10.0 today.
Elevated LFTs -possibly due to cardiogenic shock, ischemic hepatitis.� AST improving.�Atorvastatin on hold for now.
Psych: Psychology consult.� Monitor mood, adjust medications as needed.
Skin: monitor for pressure sores/rashes/lesions.
Pain: acetaminophen or oxycodone as needed.
Bowel: Colace and Senna, PRN bisacodyl.
Bladder: Time void, PVRs, PRN straight cath.
GI Prophylaxis: Pantoprazole 40 mg
DVT Prophylaxis: Mechanical and heparin SQ
Pulmonary: Incentive spirometry
Safety: Continue to reinforce assistance with all transfers.
Code Status:� Full code
Dispo (date/plan/equipment needs): Home with family care.� Social history reviewed.
Functional and Medical Goals: Modified Independent with ADL�s, ambulation, transfers
Discharge Destination: Acute inpatient rehabilitation
Summary of recommendations:
- Discharge Destination: Would benefit from acute inpatient PT/OT to increase independence with ADLs, improve balance, coordination, endurance, strength, mobility, community reintegration, decreased burden of care on others and family education.
Currently with need of moderate assistance of 1-2 people for mobility, functionality and with some cognitive impairments.
Debility/NM/CAD: S/P stent of OM and lithotripsy-continue ASA/Brilinta/Statin
HTN: continue medications, monitor closely
HLD: continue Atorvastatin
DVT Prophylaxis: Mechanical and start heparin SQ
Pulmonary: Incentive spirometry
Bowel: Colace and Senna, PRN bisacodyl.
Thank you for allowing me to care for your patient. Please contact me with any questions or concerns.
This note was dictated using a voice recognition system. Please excuse any typographical errors from general repair mechanic. If you believe there are any discrepancies, please notify our office.

Documented by User: Lucio Foley MD 07/19/23 22:39
Consultation - Medical
-
Referring Provider: Violeta Dutta
Chief Complaint: Debility, NM, s/p Stenting
History of Present Illness: 67 year-old male with PMH of (HTN, Hyperlipidemia, NIDDM, Diabetic retinopathy, psoriasis) who developed 'indigestion' after eating chili last night around 5pm, the pain continued through the night and this morning he
presented to the ER with 8/[address] EKG ST with ST elevations. He was given heparin, Brilinta, ASA and brought urgently to the earthmoving labourer. Cardiogenic shock status post PCI and Impella device. Tested positive for flu. Hypoxemia requiring
intubation 07/14, extubated 2. shock resolved.� Off pressors. Sepsis likely from influenza A -continue Tamiflu, last day 07/19.
R/LHC: �Right dominant circulation with a CANE FURNITURE MAKER of the proximal RCA, a 90% proximal LAD lesion lesion, a 70% mid LAD lesion, a long, 50% distal LAD lesion and a hazy, densely calcified 90% ostial circumflex lesion immediately proximal to the
bifurcation of the circumflex and primary obtuse marginal
- s/p stent of OM and lithotripsy
- post cath Echo: Normal left ventricular chamber size with lateral akinesis and mildly reduced left ventricular systolic function. Left ventricular ejection fraction is 40%. normal RV function.
Impella now explanted. Levophed weaned off.
- continue ASA/Brilinta/Statin
cardiology, Dr. Win, plan for CABG in several weeks time after he has recovered.
Right groin hematoma -ultrasound did not confirm hematoma, AV fistula, pseudoaneurysm.
Past Medical History: HTN, Hyperlipidemia, NIDDM, Diabetic retinopathy, psoriasis
Procedure History: Left rotator cuff repair
Family History: Father 92 of CHF, Mother 82 Alzheimers, DM
Social History:
Functional Level Premorbidly: Independent for all activities.
Functional Level Currently: Bed mobility with supine to sit�moderate assist, sit to supine�moderate assist, trunk and lower extremity assist�able to advance lower extremity to edge of bed and needed help reaching for rail, transfer from sit to
stand�mod assist. Ambulation�took sidesteps along edge of bed with rolling walker and mod assist x 1 for balance and assistance advancing rolling walker, balance fair with rolling walker. OT:Assist of 2, impaired attention, impaired short-term
memory, impaired problem-solving/executive function. Eating�set up, grooming�min assist, toileting�dependent, lower extremity care�max assist
Tobacco: Denies
Alcohol: Denies
Drug use: Denies
Lives with: Luz and adopted two sons 37yo and 19yo
24-hour assistance available: yes
Number of floors: Split level
# steps to enter: 1-2
# steps to second floor: 8 from kitchen
Potential First floor set up:yes, but no shower
Driving: yes
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
�
Allergies:
Allergy/AdvReac Type Severity Reaction Status Date / Time
No Known Allergies Allergy Unverified 07/14/23 16:22
Review of Systems:
Constitutional: (x) Normal _
Eye: (x) Normal _
Ear/Nose/Throat: (x) Normal _
Respiratory: Flu
Cardiovascular: NM, cad s/p stent
Gastrointestinal: (x) Normal _
Genitourinary: (x) Normal_
Musculoskeletal: (x) Normal _
Integumentary: (x) Normal _
Neurologic: (x) Normal _
Psychiatric: (x) Normal _
Endocrine: Diabetes
Hematologic/Lymphatic: (x) Normal _
Allergic/Immunologic: (x) Normal _
Medications:
Active Current Visit Medication List
Category Date Time Status
Acetaminophen [Tylenol Oral Solution] Med 07/15/23 13:31 Active
650 mg PO Q6HPRN PRN
Albumin Human 5% 250 ml [Albumin 5%] Med 07/14/23 19:00 Active
12.5 grams in 250 ml IV [id number]
Aspirin Chewable [Low Strength Aspirin] Med 07/17/23 12:20 Active
81 mg PO DAILY
Dextrose 50%-Water [Dextrose 50% Syringe] Med 07/17/23 13:08 Active
12.5 grams IV [id number] PRN
Fentanyl Citrate/Pf [Sublimaze] Med 07/14/23 17:46 Active
50 mcg IV [id number] PRN
Flush (0.9% Sodium Chloride) [Flush (Nss)] Med 07/14/23 22:00 Active
See Dose Instructions IV PER PROTOCOL
Glucagon [GlucaGen] Med 07/17/23 13:08 Active
1 mg IM PRN PRN
Guaifenesin [Mucinex] Med 07/19/23 20:00 Active
600 mg PO Q12
Insulin Aspart Corrective Low [Novolog Flexpen-Low Med 07/17/23 16:30 Active
Resistance]
See Protocol SC AC
Insulin Aspart Pen [Novolog Flexpen] Med 07/19/23 11:30 Active
6 units SC AC
Insulin Glargine Lantus [Lantus] 13 units Med 07/20/23 08:00 Active
Subcutaneous Insulin Syringe [Syringe-Insulin] 0 unit
SC DAILY
Ipratropium/Albuterol Sulfate [Duoneb] Med 07/18/23 20:00 Active
3 ml INH R QID
Magnesium Oxide Med 07/17/23 08:00 Active
500 mg PO BID
Metoprolol Xl [Toprol Xl] Med 07/18/23 13:00 Active
12.5 mg PO DAILY
Ondansetron Injectable [Zofran] Med 07/16/23 09:05 Active
4 mg IV Q6HPRN PRN
Oseltamivir [Tamiflu] Med 07/15/23 08:00 Active
75 mg PO BID
Pantoprazole [Protonix] Med 07/18/23 08:00 Active
40 mg PO DAILY
Phenol 1.4% [place] [Chloraseptic/Sore Throat [place]] Med 07/16/23 23:53 Active
See Dose Instructions PO Q2HPRN PRN
Polyethylene Glycol Powder [Miralax] Med 07/17/23 12:20 Active
17 grams PO DAILY
Sodium Bicarbonate 25 meq Med 07/14/23 19:00 Active
Dextrose 5%/Water 1000 ml [D5w] 1,000 ml
INF CATH PRN
Ticagrelor [Brilinta] Med 07/17/23 08:00 Active
90 mg PO BID
Vitals:
Temp Pulse Resp BP Pulse Ox
98.1 F 96 16 113/73 95
07/19/23 15:23 07/19/23 15:34 07/19/23 15:34 07/19/23 15:23 07/19/23 15:34
Height 5 ft 7 in
Actual Weight 86 kg
Body Mass Index (BMI) 29.7
Physical Exam:
General Appearance/Observation: Well-developed, well-nourished individual in no apparent distress.
Pain/Comfort Assessment: Denies
Mood/Affect: Appropriate, pleasant
Integumentary/Operative Site:
�� Pressure Ulcer Evaluation: absent over heels.
�� �� Other Type of Wound: hematoma- right groin
��
Eyes: Conjunctiva/Lids: normal ��� Pupils: pupils equal round and reactive to light and Accommodation
Ears/Nose/Throat: oral mucosa moist,� throat clear.������������ Lips/Teeth/Gums: normal
Neck: No muscle spasm or tenderness
Cardiovascular: Heart: regular, no murmur
Pulses: dorsalis pedis 1+ bilaterally
Respiratory: Respiratory Effort/Chest Expansion: normal ������ Auscultation: Coarse breath sounds.
Gastrointestinal: abdomen not tender, no distension, normal abdominal bowel sounds
Genitourinary: No Warren
Extremities: Edema: None Cyanosis: None Trophic changes: None
Neurology Exam:
Orientation: Alert, Oriented to self, place after saying [facility] first. Says spring
Memory: Impaired, slow to process
Higher cortical function- able to count backward by 3
Repetition: intact
Comprehension: slow processing
Two step command: slow processing
Naming: Intact
Cranial Nerves:
�� CNII: Pupillary light reflex: Intact��� Visual Field: Intact
�� CN III, IV, : Extraocular muscles: Intact
�� CN V: Facial Sensation at Forehead: Intact, Maxilla: Intact, Mandible: Intact
�� CN VII: Facial movement: Symmetric
�� CN VIII: Hearing: Normal
�� CN IX/X: Speech & swallow: Normal, Position of Uvula: Midline
�� CN XI: Shoulder shrug: Symmetric
�� CN XII: Tongue protrusion: Midline
Sensory:
�� Light touch: Intact in bilateral upper and lower extremities
��
Reflexes:
�� Biceps: 2+ bilaterally
�� Brachioradialis: 2+ bilaterally
�� Triceps: 2+ bilaterally
�� Patellar: 2+ bilaterally
�� Achilles: absent+ bilaterally
�� Babinski: Down going bilaterally
�� Clonus: None
�� Milena: Negative bilaterally
Cerebellar: Dysmetria/Ataxia: None
Musculoskeletal: Motor: (Manual muscle scale 0-5)
Muscle SA EF WE EE FF FA HF KE DF EHL PF
Right� 4 4 4 4 4 4 4 4 4 4
Left 4 4 4 4 4 4 4 4 4 4
Tone: Normal in all extremities
Range of Motion: Passively within normal limits in all extremities
Lab Results
Labs
WBC 10.2 10^3/uL (4.8-10.8) 07/19/23 04:33
RBC 3.61 10^6/uL (4.70-6.10) L 07/19/23 04:33
Hgb 10.0 g/dL (13.0-18.0) L 07/19/23 04:33
Hct 29.4 % (39.0-52.0) L 07/19/23 04:33
MCV 81.4 fL (80.0-94.0) 07/19/23 04:33
MCH 27.7 pg (27.0-31.0) 07/19/23 04:33
MCHC 34.0 g/dL (33.0-37.0) 07/19/23 04:33
RDW 13.4 % (11.5-14.5) 07/19/23 04:33
Plt Count 157 10^3/uL (130-400) 07/19/23 04:33
MPV 10.3 fL (7.4-10.4) 07/19/23 04:33
Abs Immat Gran (auto) 0.1 10^3/uL (0-0.05) H 07/14/23 17:50
Absolute Neuts (auto) 11.2 10^3/uL (1.4-6.5) H 07/14/23 17:50
Absolute Lymphs (auto) 0.6 10^3/uL (1.2-3.4) L 07/14/23 17:50
Absolute Monos (auto) 1.3 10^3/uL (0.1-0.6) H 07/14/23 17:50
Absolute Eos (auto) 0.0 10^3/uL (0-0.7) 07/14/23 17:50
Absolute Basos (auto) 0.1 10^3/uL (0-0.2) 07/14/23 17:50
Immature Gran % 0.5 % (0-0.5) 07/14/23 17:50
Neutrophils % 84.2 % (42.2-75.2) H 07/14/23 17:50
Lymphocytes % 4.6 % (20.5-51.1) L 07/14/23 17:50
Monocytes % 10.0 % (1.7-9.3) H 07/14/23 17:50
Eosinophils % 0.2 % (0-6) 07/14/23 17:50
Basophils % 0.5 % (0-2) 07/14/23 17:50
Nucleated RBC % 0 % (-) 07/14/23 17:50
PT 15.3 Sec (11.4-14.6) H 07/14/23 20:25
INR 1.21 07/14/23 20:25
APTT 73.8 Sec (23.4-35.0) H 07/15/23 08:59
pH Cancelled 07/16/23 14:15
pCO2 Cancelled 07/16/23 14:15
pO2 Cancelled 07/16/23 14:15
HCO3 Cancelled 07/16/23 14:15
Base Excess Cancelled 07/16/23 14:15
ABG O2 Sat (Measured) Cancelled 07/16/23 14:15
Potassium 3.9 mMOL/L (3.5-5.1) 07/14/23 20:25
O2 Delivery Level Cancelled 07/16/23 14:15
Sodium 133 mmol/L (135-145) L 07/19/23 04:33
Potassium 3.8 mmol/L (3.5-5.1) 07/19/23 04:33
Chloride 104 mmol/L (98-107) 07/19/23 04:33
Carbon Dioxide 27 mmol/L (22-30) 07/19/23 04:33
BUN 15 mg/dl (9-20) 07/19/23 04:33
Creatinine 0.6 mg/dL (0.7-1.3) L 07/19/23 04:33
Estimated Creat Clear > 125 ml/min 07/19/23 04:33
eGFR > 60.00 07/19/23 04:33
Glucose 153 mg/dl (70-99) H 07/19/23 04:33
Hemoglobin A1c 7.2 % (4.0-5.6) H 07/15/23 04:26
Lactic Acid Cancelled 07/16/23 20:00
Calcium 7.9 mg/dl (8.4-10.2) L 07/19/23 04:33
Ionized Calcium 1.11 mMOL/L (1.15-1.33) L 07/16/23 03:14
Magnesium 2.0 mg/dl (1.6-2.3) 07/18/23 04:29
Total Bilirubin 2.2 mg/dl (0.2-1.3) H 07/19/23 04:33
AST 179 U/L (17-59) H 07/19/23 04:33
ALT 79 U/L (0-50) H 07/19/23 04:33
Alkaline Phosphatase 67 U/L (38-126) 07/19/23 04:33
Ammonia 19 umol/L (9-30) 07/19/23 04:33
Lactate Dehydrogenase 407 U/L (120-246) H 07/14/23 20:25
Troponin I 7.440 ng/ml H* 07/17/23 10:22
Total Protein 5.7 g/dl (6.3-8.2) L 07/19/23 04:33
Albumin 3.1 g/dl (3.5-5.0) L 07/19/23 04:33
Triglycerides 135 mg/dl (10-149) 07/17/23 04:15
Total Cholesterol 139 mg/dl (50-199) 07/15/23 04:26
LDL Cholesterol, Calc 81 mg/dl 07/15/23 04:26
VLDL Cholesterol, Calc 29 mg/dl (0-30) 07/15/23 04:26
HDL Cholesterol 29 mg/dl 07/15/23 04:26
Urine Color Yellow 07/14/23 18:19
Urine Clarity Clear (Clear) 07/14/23 18:19
Urine pH 5.0 (5.0-9.0) 07/14/23 18:19
Ur Specific [place] 1.010 (<1.030) 07/14/23 18:19
Urine Ketones 1+ (Negative) A 07/14/23 18:19
Ur Occult Blood Reflex 4+ (Negative) A 07/14/23 18:19
Urine Nitrite (Reflex) Negative (Negative) 07/14/23 18:19
Urine Bilirubin Negative (Negative) 07/14/23 18:19
Urine Urobilinogen Negative (Neg - 1+) 07/14/23 18:19
Leukocyte Esterase Rfl Negative (Negative) 07/14/23 18:19
Urine RBC 40-50 /HPF (0-2) A 07/14/23 18:19
Urine WBC (Reflex) 0-2 /HPF (0-5) 07/14/23 18:19
Ur Squamous Epith Cells 0-2 /LPF (Few) 07/14/23 18:19
Urine Glucose Negative (Negative) 07/14/23 18:19
Urine Albumin (Reflex) Trace (Neg - Trace) 07/14/23 18:19
SARS-CoV-2 Antigen Negative (Negative) 07/14/23 18:19
POC Glucose 276 mg/dl (70-99) H 07/19/23 12:18
POC ACT Low Range 155 Seconds (116-155) 07/14/23 20:03
Blood Type B NEG 07/18/23 13:44
Blood Type Confirm B NEG 07/18/23 15:20
Antibody Screen Negative (Negative) 07/18/23 13:44
Crossmatch IS Only See Detail 07/18/23 13:44
Diagnostic Results: as per HPI
Assessment
67 year-old male with PMH of (HTN, Hyperlipidemia, NIDDM, Diabetic retinopathy, psoriasis)EKG ST with ST elevations. He was given heparin, Brilinta, ASA and brought urgently to the earthmoving labourer for stenting. Cardiogenic shock status post PCI and Impella
device. Tested positive for flu. Hypoxemia requiring intubation 07/14, extubated 07/16. shock resolved.� Off pressors. Sepsis likely from influenza A -continue Tamiflu, last day 07/19. Patient with deconditioning.
Plan
PT/OT to increase independence with ADLs, improve balance, coordination, endurance, strength, mobility, community reintegration, decreased burden of care on others and family education.
NM/CAD: S/P stent of OM and lithotripsy-continue ASA/Brilinta/Statin. Plan for CABG in 1 month.
HTN: monitor BP, had sepsis. Currently on metoprolol 12.5 mg.
HLD: Statin
Coronary artery disease: Aspirin 81mg qd, statin, Metoprolol 12.5mg
DM II: Accu-Cheks, insulin sliding scale, glargine 13 units in device, Aspart 6 units SC AC
Acute hypoxic respiratory failure -resolved.� Extubated 07/16.� Currently on room air
FLU: Acute Influenza infection.Continue Oseltamivir to complete 5 days through 07/19/23. Albuterol/Ipratropium neb
Anemia: normocytic.� Due to acute critical illness.�Patient was transfused 1 unit of blood on 07/18 for hemoglobin of 9.0 per cardiology orders, hemoglobin 10.0 today.
Elevated LFTs -possibly due to cardiogenic shock, ischemic hepatitis.� AST improving.�Atorvastatin on hold for now.
Psych: Psychology consult.� Monitor mood, medications as needed.
Pain: acetaminophen as needed.
Bowel: Colace and Senna, PRN bisacodyl.
Bladder: Time void, PVRs, PRN straight cath.
GI Prophylaxis: Pantoprazole 40 mg
DVT Prophylaxis: Mechanical and heparin SQ
Pulmonary: Incentive spirometry
Safety: Continue to reinforce assistance with all transfers.
Code Status:� Full code as discussed with patient, , daughter.
Dispo (date/plan/equipment needs): Home with family care.� Social history reviewed.
Functional and Medical Goals: Modified Independent with ADL�s, ambulation, transfers
Discharge Destination: Acute inpatient rehabilitation
Summary of recommendations:
- Discharge Destination: Would benefit from acute inpatient PT/OT to increase independence with ADLs, improve balance, coordination, endurance, strength, mobility, community reintegration, decreased burden of care on others and family education.
Currently with need of moderate assistance of 1-2 people for mobility, functionality and with some cognitive impairments.
Debility/NM/CAD: S/P stent of OM and lithotripsy-continue ASA/Brilinta/Statin. Plan for CABG in 1 month.
HTN: monitor BP, had sepsis. Currently on metoprolol 12.5 mg.
HLD: Atorvastatin
DVT Prophylaxis: Mechanical and start heparin SQ
Pulmonary: Incentive spirometry
Bowel: Colace and Senna, PRN bisacodyl.
Thank you for allowing me to care for your patient. Please contact me with any questions or concerns.
Attending Statement:
I saw and examined the patient today.� Reviewed care plan with patient, therapy, nursing, and physician food service assistant.� I agree with the above subjective and physical exam, and plan as documented.
[2023-07-19 17:33] LABS: Glucose - Point of Care 249 mg/dl (70-99)
[2023-07-19] MEDS: NOVOLOG FLEXPEN-LOW RESISTANCE 2 UNITS SC (19:01)
[2023-07-19 22:00] LABS: Glucose - Point of Care 273 mg/dl (70-99)
--- NOTE | 2023-07-19 23:25 | PTCARENOTE ---
Pt rec'd at change of shift awake,alert watching tv. answering questions appropriately. Pt continues to be grossly incont of urine x 2 thus far. Pt encourged to call for nursing assist with urinal. Sinus tach on telemetry. Non prod harsh cough noted.
[2023-07-20] VITALS (13 sets, daily range): BP systolic 92–133; BP diastolic 55–79; PULSE 86–130; BMI 29.4
[2023-07-20] MEDS: XOPENEX 1.25 MG INHALANT SOLUTION INH (02:37)
--- NOTE | 2023-07-20 02:37 | PTCARENOTE ---
Pt with c/o not being able to sleep. Pt then stated its because of his intermittent cp. vs taken. PA notified. stat mn tx ordered. Rsp at bedside at this time
[2023-07-20 05:34] LABS: ALT (SGPT) 112 U/L (0-50); AST (SGOT) 148 U/L (17-59); Albumin 3.4 g/dl (3.5-5.0); Alkaline Phosphatase 92 U/L (38-126); Blood Urea Nitrogen 14 mg/dl (9-20); Calcium 8.2 mg/dl (8.4-10.2); Carbon Dioxide 27 mmol/L (22-30); Chloride 101 mmol/L (98-107); Estimated Creatinine Clearance 96 ml/min; Glucose 187 mg/dl (70-99); Potassium 3.8 mmol/L (3.5-5.1); Sodium 135 mmol/L (135-145); Total Bilirubin 2.5 mg/dl (0.2-1.3); Total Protein 6.1 g/dl (6.3-8.2); eGFR > 60.00
[2023-07-20] MEDS: DUONEB 3 ML INH ×4 (07:26→19:38)
--- NOTE | 2023-07-20 08:08 | W.PN.CD ---
Today's Communication / Plan
-
-
dc metoprolol
start CardCD 240/day
Impression / Plan
-
Impression/Plan: 67 y/o male with HTN, HLD, and IDDM presenting with inferoposterior STEMI and fever, found to have multivessel disease - s/p PCI to ostial LCx with post hoc coronary lithotripsy with cardiogenic shock requiring Impella placement
and +influenza A.
#STEMI
-Acute 07/14/23
-S/P Successful PCI of ostial LCx (Medtronic [place] Volcano 2.5 x 12 PRAKASH, post dilated with 2.5 NC balloon to 18 ROSALINDA).
-IVUS showed underexpansion in proximal margin requiring post hoc intracoronary lithotripsy (2.5 x 12 Shockwave balloon) and aggressive post dilation (2.75 x 12 NC balloon to 16 ROSALINDA).
-Troponin up to 38; peaked and trended down.
-Continue DAPT with ASA and ticagrelor for at least 12 months followed by aspirin indefinitely.
-No longer requiring norepinephrine. CI on 07/17/2023 was > 4
-Continue atorvastatin 80 mg daily.
-Started metoprolol succinate 12.5 mg daily, - but we'll need to stop due to wheeze and severe paroxysmal coughing
-I will switch metop to [id number] for BP and HR control
#Acute HFrEF/ICM (EF 40% on day of acute infarct)
-Try to optimize with GDMT as above - limited as noted
-followup echo 07/19: EF 45% w small anterolat hypok
#s/p Shock
-Acute, mixed picture, on presentation (HFlu and AMI)
-Extubated on 07/16/2023.
-Now, resolved
#Residual CAD
-Chronic.
-pLAD 90%, mLAD 70% --> long 50%, RCA APPRENTICE PLANT ATTENDANT.
-Per CULPRIT SHOCK trial, LAD revascularization deferred at the time of presentation. And with APPRENTICE PLANT ATTENDANT RCA
-Patient evaluated by CT Surgery; poor candidate for CABG at this time, but will re-eval in office in 4-6 weeks and likely for CABG in 4-6 weeks-
-Continue high dose, high potency statin.
#Influenza A
-Acute.
-Continue oseltamivir; treatment as per primary team/ID - appreciate input.
-final dosing of 5 day course is today(Tue)
#HTN
-Chronic.
-Original meds on hold due to hypotension/shock.
#HLD
-Chronic.
-Atorvastatin 80 mg daily.
Subjective/Interval History:
awake at bedside, weak, forgetful
DATA:
Groin US, 07/15/2023 (post Impella removal):
IMPRESSION: Negative for pseudoaneurysm formation, hematoma, or arteriovenous fistula.
Cardiac Catheterization/PCI, 07/14/2023:
CONCLUSIONS:
1.� Right dominant circulation with a APPRENTICE PLANT ATTENDANT of the proximal RCA, a 90% proximal LAD lesion lesion, a 70% mid LAD lesion, a long, 50% distal LAD lesion and a hazy, densely calcified 90% ostial circumflex lesion immediately proximal to the bifurcation
of the circumflex and primary obtuse marginal, status post successful IVUS guided PCI (Medtronic [place] Volcano 2.5 x 12 PRAKASH, postdilated with a 2.5 NC balloon to 18 rosalinda).
2.� Post hoc intracoronary lithotripsy and postdilation after IVUS revealed underexpansion of the proximal stent (shockwave 2.5 x 12 lithotripsy balloon, 2.75 x 8 NC balloon to 16 rosalinda).
3.� Normal left ventricular size with severe hypokinesis/akinesis of the lateral/anterolateral wall and moderately depressed systolic function (LV ejection fraction 35-40% on ventriculography).
4.� Severely elevated filling pressures with depressed cardiac function, consistent with cardiogenic shock (LVEDP = 33 mmHg, cardiac index 1.9 L/min/m�).
5.� Status post successful placement of a percutaneous left ventricular assist device (Abiomed Impella CP) via right common femoral approach.
6.� Status post right heart catheterization via right internal jugular approach.
TTE, 07/14/2023:
CONCLUSIONS
�Normal left ventricular chamber size with lateral akinesis and mildly reduced
�left ventricular systolic function. Left ventricular ejection fraction is 40%
�on Impella CP.
�Grossly normal right ventricular size and systolic function.
�Probably normal atria.
�Valves not assessed.
�Impella present in aortic root .
�
�No prior study available for comparison.
Physical Exam
Vital Signs/Labs
Vital Signs
Temp Pulse Resp BP Pulse Ox
98.1 F 126 24 133/78 94
07/20/23 07:55 07/20/23 07:54 07/20/23 07:55 07/20/23 07:54 07/20/23 07:55
07/19/23 07/20/23 07/21/23
06:59 06:59 06:59
Actual Weight 189 lb 9.561 oz 187 lb 13.341 oz
07/19/23 04:33
07/20/23 04:07
PT 15.3 Sec (11.4-14.6) H 07/14/23 20:25
INR 1.21 07/14/23 20:25
APTT 73.8 Sec (23.4-35.0) H 07/15/23 08:59
Magnesium 2.0 mg/dl (1.6-2.3) 07/18/23 04:29
Triglycerides 135 mg/dl (10-149) 07/17/23 04:15
LDL Cholesterol, Calc 81 mg/dl 07/15/23 04:26
VLDL Cholesterol, Calc 29 mg/dl (0-30) 07/15/23 04:26
HDL Cholesterol 29 mg/dl 07/15/23 04:26
LAB Results
07/17/23
10:22
Troponin I 7.440 H*
Physical Exam
Constitutional: Distress (coughing and wheezing)
Cardiovascular: Rhythm & rate is regular and Pedal edema is absent
Respiratory: Labored respirations and Wheeze Present
Neuro/Psych: Alert
Data Reviewed
-
Date of Service: July 20, 2023
EKG: Tracing Personally Visualized and interpreted
Echo: Tracing Personally Visualized and interpreted
Labs: Labs Reviewed by me
--- NOTE | 2023-07-20 08:26 | PTCARENOTE ---
The patient is AAOX3. He was incontinent for a large soft BM and a gross amount of urine. Audible wheezing was noted. His RR was 28. He was 94% on RA. I placed 2L of O2 on the patient as he said he felt SOB.
--- NOTE | 2023-07-20 08:36 | PN.DE.MGMTRT ---
Insulin Management
- -
07/15/2023: Diabetes Management Consult
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
Pt unable to interview, at bedside, reports that pt routinely follows with Endo Dr. Abdi in [place] and that he was using insulin via V-GO 20 and CGM- Priscilla 2 but she is unable to provide any further informations regarding pt's OP
diabetes regimen. Contacted both Endo-Dr. Abdi and PCP- Dr. Geller offices to gather more information, unfortunately both offices are closed today.
A1C 7.3%, Cr 0.9 eGFR >60. Pt remains intubated in critical condition.
Currently on the glycemic protocol, glucose 79 to 285, requiring 0.3 to 10 units of insulin/hr
Cont current regimen with continuos insulin infusion, reassess readiness to transition to SQ insulin upon extubation.
Give Lantus 15 units 2 hrs before stopping insulin drip.
Start basal/ bolus with corrective SQ insulin if diet is started, otherwise, use basal insulin and Low corrective insulin Q 6hrs if pt remains NPO.
07/18/2023: Diabetes Management F/U:
Pt appears lethargic and confused, unable to interview.
Weaned off insulin infusion to SQ insulin yesterday, no insulin adm prior to d/c of drip.
He was started on NovoLog 3 units AC and Lantus 5 units @ HS, FBG 178 this am, Dr. Thompson has increased his Lantus dose to 10 units @ HS.
Premeal glucose 173-187, requiring additional corrective insulin. Will increase AC NovoLog to 5 units.
Will closely follow and make further insulin adjustment if necessary
07/19/2023 Diabetes Management Follow up
Patient awake and alert able to answer questions. States he has had diabetes over [address] Abdi. VGO is off at this time. When questioned Patient states he did take levemir for a long acting insulin but he is unsure of dose. He is
receiving lantus 10 units in AM, glucose up to 221 @ HS and 184 this AM/. Will increase AM lantus to 13 units and AC novolog to 6 units with low corrective. I discussed with patient that levemir will be taken off market in September so will take this
opportunity to transition to lantus. He does have his Priscilla on.
07/20/2023 Diabetes Management Follow up
Patient glucose remained > 200 yesterday requiring 3 units corrective insulin, in addition to 6 units novolog with meals. Will increase AC novolog to 9 units. Patient to receive increase lantus dose, 13 units this AM. Will follow for needed
adjustments.
Diabetes History
- -
Type of Diabetes: 2 requiring insulin
Pre-Admission Diabetes Regimen
07/20/23
04:07
Creatinine 0.7
Lab Results
Hemoglobin A1c 7.2 % (4.0-5.6) H 07/15/23 04:26
Insulin Pump Settings
IP Diabetes Regimen
07/19/23 07/19/23 07/19/23
12:18 17:31 21:54
Glucose
POC Glucose 276 H 249 H 273 H
07/20/23
04:07
Glucose 187 H
POC Glucose
Meal type: Dinner
Meal type: Lunch
Meal type: Breakfast
Amount consumed: 100%
Amount consumed: 50%
Amount consumed: 50%
Patient Education
[2023-07-20 09:11] LABS: Glucose - Point of Care 210 mg/dl (70-99)
--- NOTE | 2023-07-20 09:16 | W.PN.HOSP.TC ---
Addendum entered and electronically signed by Tra Mcdaniel DO 07/20/23 13:51:
Discharge canceled given ongoing tachycardia, complaints of shortness of breath, chest pain. Discussed with nursing and cardiology.
Original Note:
Today's Communication/Plan
-
Discharge
Assessment / Plan
Assessment / Plan
Gen-awake, alert, NAD
HEENT-NC, AT, anicteric, clear oral mm
Neck-supple
CV-reg, no M, +S1/S2, tachycardic
Lungs-clear B/L
Abd-soft, NT, ND
Ext-no edema
Musculoskeletal-no cyanosis, clubbing
Skin-warm and dry
Neuro-grossly non-focal
Psych-calm, cooperative
Acute TME -improved.
STEMI
Cardiogenic shock status post Impella -shock resolved. Off pressors.
- R/LHC: �Right dominant circulation with a PRECISION HONING MACHINE OPERATOR of the proximal RCA, a 90% proximal LAD lesion lesion, a 70% mid LAD lesion, a long, 50% distal LAD lesion and a hazy, densely calcified 90% ostial circumflex lesion immediately proximal to the
bifurcation of the circumflex and primary obtuse marginal
- s/p stent of OM and lithotripsy
- post cath Echo: Normal left ventricular chamber size with lateral akinesis and mildly reduced left ventricular systolic function. Left ventricular ejection fraction is 40%. normal RV function.
- s/p Impella which is now explanted. Levophed weaned off.
- continue ASA/Brilinta/Statin
-Discussed with cardiology, Dr. Win, plan for CABG in several weeks time after he has recovered. Cardiology has discontinued beta-purnima due to wheezing, now on Cardizem.
Right groin hematoma -ultrasound did not confirm hematoma, AV fistula, pseudoaneurysm.
Acute hypoxic respiratory failure -resolved. Extubated 2/3. Currently on room air.
Sepsis likely from influenza A -completed course of Tamiflu.
DM2 with hyperglycemia -uses insulin pump at home. Currently pump is off. Getting basal/bolus insulin. Hemoglobin A1c 7.2%.
- Patient appears to be on V-GO 20 insulin patch which is held
- wean from critical care glycemic protocol/insulin drip to SC insulin + SSI
- SOFTWARE QUALITY ASSURANCE ANALYST following
Hyponatremia -present on admission. Sodium normalized.
Hypocalcemia -ionized calcium 1.1. Magnesium is normal. Calcium improving, 7.9 today. Albumin 3.1. Corrected calcium 8.6.
Acute anemia -normocytic. Due to acute critical illness. Hemoglobin was normal on admission. Doubt active bleeding given very slow drop. Patient was transfused 1 unit of blood on 07/18 for hemoglobin of 9.0 per cardiology orders, hemoglobin 10.0
today.
Elevated LFTs -possibly due to cardiogenic shock, ischemic hepatitis. AST improving. Hold atorvastatin for now.
Essential hypertension - stable.
Obesity due to excess calories
DVT ppx: SCDs
Code: Full
Dispo -medically stable for discharge to [facility].
35 minutes spent in discharge process.
Anticipated Discharge: Today
Subjective/Interval History
-
Date of Service: July 20, 2023
Patient seen and examined. No complaints.
Objective Data
-
Labs:
Laboratory Results
07/20/23
04:07
Sodium 135
Potassium 3.8
Chloride 101
Carbon Dioxide 27
BUN 14
Creatinine 0.7
Glucose 187 H
Calcium 8.2 L
Total Bilirubin 2.5 H
AST 148 H
ALT 112 H
Alkaline Phosphatase 92
Vital Signs:
Vital Signs
Temp Pulse Resp BP Pulse Ox
98.1 F 126 28 133/78 94
07/20/23 07:55 07/20/23 07:54 07/20/23 07:55 07/20/23 07:54 07/20/23 07:55
I&O
07/19/23 07/20/23 07/21/23
06:59 06:59 06:59
Intake Total 840 / 840
Balance 840 / 840
Review of Systems
-
History Source: Patient
All other systems: Reviewed and negative
[2023-07-20] MEDS: LANTUS 0.130000000000000004 UNITS SC (09:18)
[2023-07-20] MEDS: MAGNESIUM OXIDE 500 MG PO ×2 (09:18→19:32)
[2023-07-20] MEDS: MUCINEX 600 MG PO ×2 (09:18→19:32)
[2023-07-20] MEDS: LOW STRENGTH ASPIRIN 81 MG PO (09:18)
[2023-07-20] MEDS: BRILINTA 90 MG PO ×2 (09:19→19:32)
[2023-07-20] MEDS: PROTONIX 40 MG PO (09:19)
[2023-07-20] MEDS: FLUSH (NSS) 3 FLUSH IV (09:19)
--- NOTE | 2023-07-20 09:21 | W.DS.TRANS ---
DC Summary - Resident Hall Director
-
Discharge Instructions:
Discharge Diagnosis/Procedures STEMI, Angioplasty with stent to Obtuse marginal
artery, hyponatremia
Diet Low Cholesterol,Low Fat
Activity As tolerated,With assistance
Driving Restrictions No driving
Bathing Restrictions None
Instructions:
Stand-Alone Forms: DC Instructions- Cath/EP Lab
Changes to Home Medications: No
Discharge Medications:
DC Medications w/original date entered in [employer]
Insulin Glargine Lantus [Lantus] 13 units As Directed mls/hr SC DAILY 07/20/23
aspirin 81 mg chewable tablet (Children's Aspirin) 81 mg PO DAILY #0 tabs 07/20/23
diltiazem HCl 240 mg capsule,extended release 24 hr 240 mg PO DAILY #0 caps 07/20/23
guaifenesin 600 mg tablet, extended release 12 hr 600 mg PO Q12 #0 tabs 07/20/23
insulin aspart U-100 100 unit/mL (3 mL) subcutaneous pen (Novolog FlexPen U-100 Insulin aspart) 9 unit (0.09 mL) SC AC #0 mL 07/20/23
ipratropium 0.5 mg-albuterol 3 mg (2.5 mg base)/3 mL nebulization soln 3 ml inhalation R QID PRN #0 mL 07/20/23
magnesium oxide 500 mg PO BID #0 tabs 07/20/23
pantoprazole 40 mg tablet,delayed release 40 mg PO DAILY #0 tabs 07/20/23
phenol 1.4 % mucosal aerosol spray (Sore Throat (phenol)) 3 spray PO Q2HPRN PRN sore throat #0 mL 07/20/23
polyethylene glycol 3350 17 gram oral powder packet (HealthyLax) 17 g PO DAILY #0 ea 07/20/23
ticagrelor 90 mg tablet (Brilinta) 90 mg PO BID #0 tabs 07/20/23
Home Medication Changes
Pending Results: No
[2023-07-20] MEDS: CARDIZEM CD 240 MG PO (09:23)
[2023-07-20] MEDS: KCL 40 MEQ PO (09:23)
[2023-07-20] MEDS: NOVOLOG FLEXPEN-LOW RESISTANCE 2 UNITS SC ×2 (09:24→12:54)
[2023-07-20] MEDS: NOVOLOG FLEXPEN 9 UNITS SC ×2 (09:24→18:06)
[2023-07-20] MEDS: MIRALAX PO (09:25)
--- NOTE | 2023-07-20 09:36 | PTCARENOTE ---
Patient is still stating that he is SOB. His HR has been in the 120s and showing sinus tack on the monitor. His pulse Ox on 2L is 97%, RR 28. Crackles noted BB. He has a harsh non-productive cough.
[2023-07-20] MEDS: TOPROL XL PO (09:48)
[2023-07-20] MEDS: NOVOLOG FLEXPEN SC ×2 (09:48→12:55)
--- NOTE | 2023-07-20 09:58 | CM ---
Addendum entered by RED Pereyra 07/20/23 11:37:
Pt. now not medically able to transfer to [facility].
Need updated PT eval-call to PT to notify.
Will need to obtain authorization for ARU from [facility].
Once PT-OT eval is completed from 07/20, will call [facility].
Original Note:
pt accepted to [facility] to [facility] auth. cleared for dc.
--- NOTE | 2023-07-20 11:04 | PTCARENOTE ---
Addendum entered by Bridget Chun RN 07/20/23 11:16:
BP 113/70, HR 124. SL nitro ordered and 1 given. The patient's pain decreased to 3/10.
Original Note:
The patient complained of chest pain. He rated it a 7/10 on scale and described it as 'sharp in my sternum' as he point to his mid chest area. ECG showing sinus tack with a critical Qtc of 61. However after closer inspection of the ECG, I measured
a Qtc of 29. No Nitroglycerin is ordered, just Tylenol. I notified both Dr. Mcdaniel and Dr. Win.
[2023-07-20] MEDS: NITROSTAT (SUBLINGUAL) 0.400000000000000022 MG SL (11:14)
--- NOTE | 2023-07-20 11:43 | W.PN.UPDATE ---
Update Note
Progress Note Update
Our team was alerted that patient was having chest discomfort. I assessed him. He was in no distress. He did report chest discomfort, which improved with one SL nitro. EKG was stable. His d/c was cancelled for today. Diltiazem started this AM.
Monitor. Reviewed case with Dr. Win who saw patient this AM.
[2023-07-20 11:58] LABS: Glucose - Point of Care 235 mg/dl (70-99)
[2023-07-20 18:07] LABS: Glucose - Point of Care 270 mg/dl (70-99)
[2023-07-20] MEDS: NOVOLOG FLEXPEN-LOW RESISTANCE 3 UNITS SC (18:07)
[2023-07-20] MEDS: CHLORASEPTIC/SORE THROAT SPRAY 1 SPRAY PO (19:32)
[2023-07-20 22:00] LABS: Glucose - Point of Care 171 mg/dl (70-99)
--- NOTE | 2023-07-20 23:03 | PTCARENOTE ---
Pt received start of shift, SR/ST 90s-100s. Pt awake, alert, and oriented watching tv/on facetime with family. Answering questions appropriately, just slow to respond at times. Scant bloody drainage noted from R groin site on diaper, site cleaned
and new dressing placed on. Pt incontinent of urine, pt attempted to ring to get urinal set up but could not hold it. Pt denies any CP, SOB, or lightheadedness/dizziness. Informed to notify RN if any changes, call guerin within reach.
[2023-07-21 04:00] VITALS: BP 119/87
[2023-07-21 04:18] VITALS: BMI 29.5
[2023-07-21 05:15] LABS: ALT (SGPT) 120 U/L (0-50); AST (SGOT) 103 U/L (17-59); Albumin 3.4 g/dl (3.5-5.0); Alkaline Phosphatase 90 U/L (38-126); Blood Urea Nitrogen 16 mg/dl (9-20); Calcium 8.4 mg/dl (8.4-10.2); Carbon Dioxide 26 mmol/L (22-30); Chloride 101 mmol/L (98-107); Estimated Creatinine Clearance 84 ml/min; Glucose 176 mg/dl (70-99); Potassium 4.5 mmol/L (3.5-5.1); Sodium 132 mmol/L (135-145); Total Protein 6.3 g/dl (6.3-8.2); eGFR > 60.00
[2023-07-21] MEDS: DUONEB 3 ML INH (07:25)
[2023-07-21] MEDS: MAGNESIUM OXIDE 500 MG PO (07:32)
[2023-07-21] MEDS: BRILINTA 90 MG PO (07:32)
[2023-07-21] MEDS: PROTONIX 40 MG PO (07:32)
[2023-07-21] MEDS: LOW STRENGTH ASPIRIN 81 MG PO (07:32)
[2023-07-21] MEDS: MUCINEX 600 MG PO (07:32)
[2023-07-21 07:36] VITALS: BP 124/81
[2023-07-21] MEDS: CARDIZEM CD 240 MG PO (07:40)
--- NOTE | 2023-07-21 08:08 | W.PN.HOSP.TC ---
Today's Communication/Plan
-
Transfer to [facility] if okay with cardiology
Assessment / Plan
Assessment / Plan
Gen-awake, alert, NAD
HEENT-NC, AT, anicteric, clear oral mm
Neck-supple
CV-reg, no M, +S1/S2, tachycardic
Lungs-clear B/L
Abd-soft, NT, ND
Ext-no edema
Musculoskeletal-no cyanosis, clubbing
Skin-warm and dry
Neuro-grossly non-focal
Psych-calm, cooperative
Acute TME -improved.
STEMI/CAD - recurrence of chest pain on 07/20. Troponins trending down compared to previous. Likely non-[place] chest pain.
Cardiogenic shock status post Impella -shock resolved. Off pressors.
- R/LHC: �Right dominant circulation with a SLAG WHEELER of the proximal RCA, a 90% proximal LAD lesion lesion, a 70% mid LAD lesion, a long, 50% distal LAD lesion and a hazy, densely calcified 90% ostial circumflex lesion immediately proximal to the
bifurcation of the circumflex and primary obtuse marginal
- s/p stent of OM and lithotripsy
- post cath Echo: Normal left ventricular chamber size with lateral akinesis and mildly reduced left ventricular systolic function. Left ventricular ejection fraction is 40%. normal RV function.
- s/p Impella which is now explanted. Levophed weaned off.
- continue ASA/Brilinta/Statin
-Discussed with cardiology, Dr. Win, plan for CABG in several weeks time after he has recovered. Cardiology has discontinued beta-purnima due to wheezing, now on Cardizem.
Right groin hematoma -ultrasound did not confirm hematoma, AV fistula, pseudoaneurysm.
Acute hypoxic respiratory failure -resolved. Extubated /. Currently on room air.
Sepsis likely from influenza A -completed course of Tamiflu.
DM2 with hyperglycemia -uses insulin pump at home. Currently pump is off. Getting basal/bolus insulin. Hemoglobin A1c 7.2%.
- Patient appears to be on V-GO 20 insulin patch which is held
- wean from critical care glycemic protocol/insulin drip to SC insulin + SSI
- AIR PUMPER following
Hyponatremia -present on admission. Sodium 132, relatively stable. Likely excess ADH effect from critical illness. Initiate mild fluid restriction.
Hypocalcemia -resolved.
Acute anemia -normocytic. Due to acute critical illness. Hemoglobin was normal on admission. Doubt active bleeding given very slow drop. Patient was transfused 1 unit of blood on 07/18 for hemoglobin of 9.0 per cardiology orders, hemoglobin
improved to 10.0.
Elevated LFTs -possibly due to cardiogenic shock, ischemic hepatitis. AST improving. Hold atorvastatin for now. Patient denies abdominal pain or nausea. Hold off on further imaging.
Essential hypertension - stable.
Obesity due to excess calories
DVT ppx: SCDs
Code: Full
Dispo -medically stable for discharge to [facility]. Await cardiology input.
Anticipated Discharge: Today
Subjective/Interval History
-
Date of Service: July 21, 2023
Patient seen and examined. Denies abdominal pain, denies nausea. Denies further chest pain. No complaints.
Objective Data
-
Labs:
Laboratory Results
07/21/23
04:06
Sodium 132 L
Potassium 4.5
Chloride 101
Carbon Dioxide 26
BUN 16
Creatinine 0.8
Glucose 176 H
Calcium 8.4
Total Bilirubin 3.0 H
AST 103 H
ALT 120 H
Alkaline Phosphatase 90
Vital Signs:
Vital Signs
Temp Pulse Resp BP Pulse Ox
98.2 F 106 22 119/87 95
07/21/23 04:00 07/21/23 04:00 07/21/23 04:00 07/21/23 04:00 07/21/23 04:00
I&O
07/20/23 07/21/2324
06:59 06:59 06:59
Intake Total 480 / 480
Output Total 120 / 120
Balance 360 / 360
Review of Systems
-
History Source: Patient
All other systems: Reviewed and negative
[2023-07-21 08:29] LABS: Glucose - Point of Care 253 mg/dl (70-99)
[2023-07-21 08:37] LABS: Direct Bilirubin 0.5 mg/dl (0.0-0.4)
[2023-07-21] MEDS: NOVOLOG FLEXPEN-LOW RESISTANCE 3 UNITS SC (08:51)
--- NOTE | 2023-07-21 09:00 | PN.DE.MGMTRT ---
Insulin Management
- -
07/15/2023: Diabetes Management Consult
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
Pt unable to interview, at bedside, reports that pt routinely follows with Endo Dr. Abdi in [place] and that he was using insulin via V-GO 20 and CGM- Priscilla 2 but she is unable to provide any further informations regarding pt's OP
diabetes regimen. Contacted both Endo-Dr. Abdi and PCP- Dr. Geller offices to gather more information, unfortunately both offices are closed today.
A1C 7.3%, Cr 0.9 eGFR >60. Pt remains intubated in critical condition.
Currently on the glycemic protocol, glucose 79 to 285, requiring 0.3 to 10 units of insulin/hr
Cont current regimen with continuos insulin infusion, reassess readiness to transition to SQ insulin upon extubation.
Give Lantus 15 units 2 hrs before stopping insulin drip.
Start basal/ bolus with corrective SQ insulin if diet is started, otherwise, use basal insulin and Low corrective insulin Q 6hrs if pt remains NPO.
07/18/2023: Diabetes Management F/U:
Pt appears lethargic and confused, unable to interview.
Weaned off insulin infusion to SQ insulin yesterday, no insulin adm prior to d/c of drip.
He was started on NovoLog 3 units AC and Lantus 5 units @ HS, FBG 178 this am, Dr. Thompson has increased his Lantus dose to 10 units @ HS.
Premeal glucose 173-187, requiring additional corrective insulin. Will increase AC NovoLog to 5 units.
Will closely follow and make further insulin adjustment if necessary
07/19/2023 Diabetes Management Follow up
Patient awake and alert able to answer questions. States he has had diabetes over [address] Abdi. VGO is off at this time. When questioned Patient states he did take levemir for a long acting insulin but he is unsure of dose. He is
receiving lantus 10 units in AM, glucose up to 221 @ HS and 184 this AM/. Will increase AM lantus to 13 units and AC novolog to 6 units with low corrective. I discussed with patient that levemir will be taken off market in September so will take this
opportunity to transition to lantus. He does have his Priscilla on.
07/20/2023 Diabetes Management Follow up
Patient glucose remained > 200 yesterday requiring 3 units corrective insulin, in addition to 6 units novolog with meals. Will increase AC novolog to 9 units. Patient to receive increase lantus dose, 13 units this AM. Will follow for needed
adjustments.
07/21/2023 Diabetes Management Follow up
Both lantus in AM and novolog AC increased yesterday. Patient glucose remains > 200. Will increase AM lantus to 16 units and AC novolog to 12 units with low corrective insulin. Patient for possible discharge to [facility].
Diabetes History
- -
Type of Diabetes: 2 requiring insulin
Pre-Admission Diabetes Regimen
07/21/23
04:06
Creatinine 0.8
Lab Results
Hemoglobin A1c 7.2 % (4.0-5.6) H 07/15/23 04:26
Insulin Pump Settings
IP Diabetes Regimen
07/20/23 07/20/23 07/20/23
09:10 11:56 18:04
Glucose
POC Glucose 210 H 235 H 270 H
07/20/23 07/21/23 07/21/23
21:57 04:06 08:28
Glucose 176 H
POC Glucose 171 H 253 H
Meal type: Dinner
Amount consumed: 55%
Patient Education
[2023-07-21] MEDS: LANTUS 0.130000000000000004 UNITS SC (09:19)
[2023-07-21] MEDS: NOVOLOG FLEXPEN 9 UNITS SC (09:21)
[2023-07-21] MEDS: MIRALAX PO (09:23)
--- NOTE | 2023-07-21 09:24 | W.PN.CD ---
Today's Communication / Plan
-
reeval LFTs in 7-10 days
holding atorvastatin
op eval with CT surgery planned
would hold off on standing nebs as no further wheezing clnincal improvement and likely driving up heart rate
Impression / Plan
-
Impression/Plan: 67 y/o male with HTN, HLD, and IDDM presenting with inferoposterior STEMI and fever, found to have multivessel disease - s/p PCI to ostial LCx with post hoc coronary lithotripsy with cardiogenic shock requiring Impella placement
and +influenza A.
#STEMI
-Acute 07/14/23
-S/P Successful PCI of ostial LCx (Medtronic Thuan Austin 2.5 x 12 PRAKASH, post dilated with 2.5 NC balloon to 18 ROSALINDA).
-IVUS showed underexpansion in proximal margin requiring post hoc intracoronary lithotripsy (2.5 x 12 Shockwave balloon) and aggressive post dilation (2.75 x 12 NC balloon to 16 ROSALINDA).
-Troponin up to 38; peaked and trended down.
-Continue DAPT with ASA and ticagrelor for at least 12 months followed by aspirin indefinitely.
-No longer requiring norepinephrine. CI on 07/17/2023 was > 4
-had been on atorvastatin 80 mg daily--->stopped due to LFT elevation, would consider a retrail as an outpatient with improvement in LFTs.
-bb changed to ccb 07/15 to wheezing, not wheezing today.
#Acute HFrEF/ICM (EF 40% on day of acute infarct)
-Try to optimize with GDMT as above and relative hypotension - limited as noted
-followup echo 07/19: EF 45% w small anterolat hypok
#s/p Shock
-Acute, mixed picture, on presentation (HFlu and AMI)
-Extubated on 07/16/2023.
-Now, resolved
#Residual CAD
-Chronic.
-pLAD 90%, mLAD 70% --> long 50%, RCA WOOL BATTING WORKER.
-Per CULPRIT SHOCK trial, LAD revascularization deferred at the time of presentation. And with WOOL BATTING WORKER RCA
-Patient evaluated by CT Surgery; poor candidate for CABG at this time, but will re-eval in office in 4-6 weeks and likely for CABG in 4-6 weeks-
-Continue high dose, high potency statin is on hold due to lft elevation, will try to add back in the outpatient setting
#Influenza A
-Acute.
-Continue oseltamivir; treatment as per primary team/ID - appreciate input.
-final dosing of 5 day course is today(Tue)
#HTN
-Chronic.
-Original meds on hold due to hypotension/shock.
#HLD
-Chronic.
-Atorvastatin 80 mg daily.
Subjective/Interval History:
awake at bedside, feeling better no cp no sob. asking to go to rehab
DATA:
Groin US, 07/15/2023 (post Impella removal):
IMPRESSION: Negative for pseudoaneurysm formation, hematoma, or arteriovenous fistula.
Cardiac Catheterization/PCI, 07/14/2023:
CONCLUSIONS:
1.� Right dominant circulation with a WOOL BATTING WORKER of the proximal RCA, a 90% proximal LAD lesion lesion, a 70% mid LAD lesion, a long, 50% distal LAD lesion and a hazy, densely calcified 90% ostial circumflex lesion immediately proximal to the bifurcation
of the circumflex and primary obtuse marginal, status post successful IVUS guided PCI (Medtronic Thuan Austin 2.5 x 12 PRAKASH, postdilated with a 2.5 NC balloon to 18 rosalinda).
2.� Post hoc intracoronary lithotripsy and postdilation after IVUS revealed underexpansion of the proximal stent (shockwave 2.5 x 12 lithotripsy balloon, 2.75 x 8 NC balloon to 16 rosalinda).
3.� Normal left ventricular size with severe hypokinesis/akinesis of the lateral/anterolateral wall and moderately depressed systolic function (LV ejection fraction 35-40% on ventriculography).
4.� Severely elevated filling pressures with depressed cardiac function, consistent with cardiogenic shock (LVEDP = 33 mmHg, cardiac index 1.9 L/min/m�).
5.� Status post successful placement of a percutaneous left ventricular assist device (Abiomed Impella CP) via right common femoral approach.
6.� Status post right heart catheterization via right internal jugular approach.
TTE: 07/19/23:
�CONCLUSIONS
�Left ventricular ejection fraction is 45% by Padilla's method.
�Small anterolateral area of hypokinesis.
�Moderate mitral regurgitation.
�Compared to prior study of. 07/14/23 the LV lateral wall akinesis is less
�prominent and EF is improved from 40%
�
TTE, 07/14/2023:
CONCLUSIONS
�Normal left ventricular chamber size with lateral akinesis and mildly reduced
�left ventricular systolic function. Left ventricular ejection fraction is 40%
�on Impella CP.
�Grossly normal right ventricular size and systolic function.
�Probably normal atria.
�Valves not assessed.
�Impella present in aortic root .
�
�No prior study available for comparison.
Physical Exam
Vital Signs/Labs
Vital Signs
Temp Pulse Resp BP Pulse Ox
97.5 F 106 18 124/81 96
07/21/23 08:31 07/21/23 07:36 07/21/23 08:31 07/21/23 07:36 07/21/23 08:31
07/20/23 07/21/23 07/22/23
06:59 06:59 06:59
Actual Weight 85.2 kg 85.4 kg
07/19/23 04:33
07/21/23 04:06
PT 15.3 Sec (11.4-14.6) H 07/14/23 20:25
INR 1.21 07/14/23 20:25
APTT 73.8 Sec (23.4-35.0) H 07/15/23 08:59
Magnesium 2.0 mg/dl (1.6-2.3) 07/18/23 04:29
Triglycerides 135 mg/dl (10-149) 07/17/23 04:15
LDL Cholesterol, Calc 81 mg/dl 07/15/23 04:26
VLDL Cholesterol, Calc 29 mg/dl (0-30) 07/15/23 04:26
HDL Cholesterol 29 mg/dl 07/15/23 04:26
LAB Results
07/20/23 07/20/23
14:32 20:50
Troponin I 5.420 H* 5.290 H*
Physical Exam
Constitutional: No acute distress
Cardiovascular: Rhythm & rate is regular, Pedal edema is absent and Systolic murmur absent
Respiratory: Respiratory effort normal, Lungs clear to auscul., Wheeze Absent, Crackles Absent and Rhonchi Absent
Neuro/Psych: AO x 3
Data Reviewed
-
Date of Service: July 21, 2023
EKG: Other (sinus tachycardia as far as tele shows >48 hours)
Medical Tests (PFT, Pathology etc): Discussed with Physician (Dr Mcdaniel, ok for discharge to [facility], ct surgery o/p follow up planned) and Discussed with Nurse (ok for discharge)
[2023-07-21] MEDS: NOVOLOG FLEXPEN SC (09:29)
[2023-07-21] MEDS: DUONEB INH (11:03)
--- NOTE | 2023-07-21 11:27 | CM ---
Addendum entered by RED Pereyra 07/21/23 12:17:
Pt. has been approved for ARU at [facility]; auth# [id number], NRD 07/27. Provided auth to [facility] liaison.
Plan to transfer after lunch.
RN, pt., pt's dtr. + son updated at bedside. Reviewed authorization, anticipated LOS, anticipated DC plan, etc.
PLAN: DC to [facility] @
RN report: [phone]
Original Note:
CM following for DC planning needs.
Aware that patient is medically stable for [facility].
Confirmed w/ [facility] liaison that bed is available today pending auth#.
Call to [facility] and initiated pre-cert. Case is pended to medical data analyst, awaiting call back.
Met w/ patient at bedside. Updated on above.
Will follow up with pt., spouse, and medical team regarding approval/transfer arrangements.
Goal: [facility] today
[2023-07-21 11:52] VITALS: BP 108/69
[2023-07-21] MEDS: NOVOLOG FLEXPEN 12 UNITS SC (12:26)
[2023-07-21] MEDS: NOVOLOG FLEXPEN-LOW RESISTANCE 2 UNITS SC (12:27)
[2023-07-21 12:28] LABS: Glucose - Point of Care 236 mg/dl (70-99)
--- NOTE | 2023-07-21 14:33 | PTCARENOTE ---
Pt received this am, alert and oriented. Denies any pain or Sob. Mild dyspnea with exertion. Occas productive cough of yellow sputum. OOB with one assist with the walker. Gait steady. Pt discharged to [facility]. Report called to nurse receiving pt.
Pt transported via wheelchair.
== END 2023-07-21 14:42 | DRG 215 ==
LOC: IVU 17:30
PROVIDERS: Clinical Nurse Specialist Acute Care; Hospitalist; Internal Medicine; Nurse Practitioner Adult Health; Physician Assistant Medical; ADMITTING PHYSICIAN Internal Medicine; ATTENDING PHYSICIAN Hospitalist; CONSULT PHYSICIAN Internal Medicine Cardiovascular Disease; CONSULT PHYSICIAN Internal Medicine Infectious Disease; CONSULT PHYSICIAN Physical Medicine & Rehabilitation; EMERGENCY PHYSICIAN Emergency Medicine; OTHER PHYSICIAN Internal Medicine Pulmonary Disease; OTHER PHYSICIAN Thoracic Surgery (Cardiothoracic Vascular Surgery)
PROC: 02F03ZZ Fragmentation in Coronary Artery, One Artery, Percutaneous Approach (ICD-10-PCS; 2023-07-14)
PROC: 5A1945Z Respiratory Ventilation, 24-96 Consecutive Hours (ICD-10-PCS; 2023-07-14)
PROC: 027034Z Dilation of Coronary Artery, One Artery with Drug-eluting Intraluminal Device, Percutaneous Approach (ICD-10-PCS; 2023-07-14)
PROC: 02HA3RZ Insertion of Short-term External Heart Assist System into Heart, Percutaneous Approach (ICD-10-PCS; 2023-07-14)
PROC: B240ZZ3 Ultrasonography of Single Coronary Artery, Intravascular (ICD-10-PCS; 2023-07-14)
PROC: B2151ZZ Fluoroscopy of Left Heart using Low Osmolar Contrast (ICD-10-PCS; 2023-07-14)
PROC: B2111ZZ Fluoroscopy of Multiple Coronary Arteries using Low Osmolar Contrast (ICD-10-PCS; 2023-07-14)
PROC: 0BH17EZ Insertion of Endotracheal Airway into Trachea, Via Natural or Artificial Opening (ICD-10-PCS; 2023-07-14)
PROC: 4A023N8 Measurement of Cardiac Sampling and Pressure, Bilateral, Percutaneous Approach (ICD-10-PCS; 2023-07-14)
PROC: 5A0221D Assistance with Cardiac Output using Impeller Pump, Continuous (ICD-10-PCS; 2023-07-14)
PROC: B41D1ZZ Fluoroscopy of Aorta and Bilateral Lower Extremity Arteries using Low Osmolar Contrast (ICD-10-PCS; 2023-07-14)
PROC: 02PA3RZ Removal of Short-term External Heart Assist System from Heart, Percutaneous Approach (ICD-10-PCS; 2023-07-15)
PROC: 30233N1 Transfusion of Nonautologous Red Blood Cells into Peripheral Vein, Percutaneous Approach (ICD-10-PCS; 2023-07-18)
DX: I21.19 ST elevation (STEMI) myocardial infarction involving other coronary artery of inferior wall (principal); A41.89 Other specified sepsis; G92.8 Other toxic encephalopathy; R57.0 Cardiogenic shock; J96.01 Acute respiratory failure with hypoxia; K72.00 Acute and subacute hepatic failure without coma; I50.21 Acute systolic (congestive) heart failure; E87.1 Hypo-osmolality and hyponatremia; L76.32 Postprocedural hematoma of skin and subcutaneous tissue following other procedure; J10.1 Influenza due to other identified influenza virus with other respiratory manifestations; E11.65 Type 2 diabetes mellitus with hyperglycemia; I25.10 Atherosclerotic heart disease of native coronary artery without angina pectoris; I25.82 Chronic total occlusion of coronary artery; E78.00 Pure hypercholesterolemia, unspecified; E11.319 Type 2 diabetes mellitus with unspecified diabetic retinopathy without macular edema; L40.9 Psoriasis, unspecified; E83.51 Hypocalcemia; R00.0 Tachycardia, unspecified; D64.9 Anemia, unspecified; I25.5 Ischemic cardiomyopathy; I11.0 Hypertensive heart disease with heart failure; E66.09 Other obesity due to excess calories; Y83.8 Other surgical procedures as the cause of abnormal reaction of the patient, or of later complication, without mention of misadventure at the time of the procedure; Z96.41 Presence of insulin pump (external) (internal); N43.3 Hydrocele, unspecified; Z68.29 Body mass index [BMI] 29.0-29.9, adult; Z11.52 Encounter for screening for COVID-19; Z28.39 Other underimmunization status; Z79.4 Long term (current) use of insulin
CPT/HCPCS: 93308; 33990; 71045; 71275; 74174; 76870; 80048; 80053; 80061; 81003; 81015; 82140; 82248; 82330; 82805; 82962; 83036; 83605; 83615; 83735; 84132; 84478; 84484; 85014; 85018; 85025; 85027; 85347; 85610; 85730; 86850; 86900; 86901; 86920; 87040; 87070; 87205; 87502; 87641; 87811; 92523; 92526; 92610; 92972; 92978; 93005; 93321; 93325; 93460; 93880; 93926; 93976; 94002; 94003; 94640; 97116; 97163; 97167; 97530; 97535; 99285; C1725; C1753; C1761; C1769; C1874; C1894; C9606; P9016; P9045; Q9967

== ENCOUNTER 2023-07-23 16:15 | Emergency (ER) | payer OTHER, SELFPAY ==
[2023-07-23 16:19] VITALS: BP 109/74; BMI 29.8
[2023-07-23 16:21] VITALS: BP 109/74
[2023-07-23 16:52] LABS: % Basophils 0.5 % (0-2); % Eosinophils 3.5 % (0-6); % Immature Granulocytes 3.4 % (0-0.5); % Lymphocytes 12.6 % (20.5-51.1); % Monocytes 9.2 % (1.7-9.3); % Neutrophils 70.8 % (42.2-75.2); Absolute Basophils 0.1 10^3/uL (0-0.2); Absolute Eosinophils 0.5 10^3/uL (0-0.7); Absolute Immature Granulocytes 0.5 10^3/uL (0-0.05); Absolute Lymphocytes 1.8 10^3/uL (1.2-3.4); Absolute Monocytes 1.3 10^3/uL (0.1-0.6); Absolute Neutrophils 9.8 10^3/uL (1.4-6.5); Hematocrit 33.6 % (39.0-52.0); Hemoglobin 11.5 g/dL (13.0-18.0); Mean Corp Hgb Conc. 34.2 g/dL (33.0-37.0); Mean Corpuscular Hgb 28.2 pg (27.0-31.0); Mean Corpuscular Volume 82.4 fL (80.0-94.0); Mean Platelet Volume 9.3 fL (7.4-10.4); Nucleated Red Blood Cells % 0 % (-); Platelet Count 633 10^3/uL (130-400); Red Blood Cell Count 4.08 10^6/uL (4.70-6.10); Red Cell Dist. Width 13.7 % (11.5-14.5); White Blood Cell Count 13.9 10^3/uL (4.8-10.8)
[2023-07-23 16:58] LABS: ALT (SGPT) 80 U/L (0-50); AST (SGOT) 49 U/L (17-59); Albumin 3.5 g/dl (3.5-5.0); Alkaline Phosphatase 92 U/L (38-126); Blood Urea Nitrogen 26 mg/dl (9-20); Carbon Dioxide 26 mmol/L (22-30); Chloride 100 mmol/L (98-107); Estimated Creatinine Clearance 83 ml/min; Glucose 144 mg/dl (70-99); Sodium 135 mmol/L (135-145); Total Bilirubin 2.3 mg/dl (0.2-1.3); Total Protein 6.4 g/dl (6.3-8.2); eGFR > 60.00
[2023-07-23 17:00] VITALS: BP 112/64
--- NOTE | 2023-07-23 17:05 | EDRN ---
Dr. Salazar in room w/ pt.
[2023-07-23 17:10] LABS: Potassium 4.5 mmol/L (3.5-5.1)
--- NOTE | 2023-07-23 17:11 | ED.GENMED ---
History of Present Illness
General
Chief Complaint: Chest Pain
Source: patient
Exam Limitations: none
Time Seen by Provider: 07/23/23 17:02
Travel History
Have you had any contact with someone who has COVID-19?: No
Do you have any symptoms of coronavirus? Fever > 100 degrees, chills, cough, shortness of breath, sore throat, loss of taste or smell, muscle aches, or headache?: No
History of Present Illness
History of Present Illness:
See MDM
Past History
Past History
ED Past Medical History: CAD, HTN, IDDM and Other
ED Past Surgical History: Cardiac and Orthopedic (Left rotator cuff repair)
Social History
Tobacco: Non-smoker
Alcohol: None
Personal:
Living: with family
Family History
Family History: Negative Early CAD, CAD or Sudden
Phy Exam
Physical Exam
Physical Exam:
See MDM
Scores
Heart Score for Chest Pain Patients
STEMI patient?: No
History: Highly Suspicious
ECG: Nonspecific Repolarization
Age: >/= 65 years
Risk Factors: >/= 3 Risk Factors or History of CAD
Troponin: >/= 3 x Normal Limit
Heart Score for Chest Pain Patients: 9
Heart Score Risk: 72.7 % MACE over next 6 weeks
Course
Orders/Labs/Results
Orders:
Orders
07/23/23 16:16
Electrocardiogram (*1) Urgent
Reason for Study: Chest Pain
Cardiac Monitoring- Treatment ONCE
IV Insert/Care/Rem.- Treatment PRN
07/23/23 16:17
EKG- Treatment ONCE
07/23/23 16:38
Complete Blood Count/With Diff Urgent
Comprehensive Metabolic Panel Urgent
Troponin I Urgent
07/23/23 17:11
Nitroglycerin Sublingual [Nitrostat (Sublingual)] 0.4 mg SL NOW STA
CR Chest - 2 Views Urgent
Comment:
Reason For Exam: Left chest pain, recent CAD with stent
Abnormal Lab Results
07/23/23
16:38
WBC 13.9 H 10^3/uL
(4.8-10.8)
RBC 4.08 L 10^6/uL
(4.70-6.10)
Hgb 11.5 L g/dL
(13.0-18.0)
Hct 33.6 L %
(39.0-52.0)
Plt Count 633 H 10^3/uL
(130-400)
Abs Immat Gran (auto) 0.5 H 10^3/uL
(0-0.05)
Absolute Neuts (auto) 9.8 H 10^3/uL
(1.4-6.5)
Absolute Monos (auto) 1.3 H 10^3/uL
(0.1-0.6)
Immature Gran % 3.4 H %
(0-0.5)
Lymphocytes % 12.6 L %
(20.5-51.1)
BUN 26 H mg/dl
(9-20)
Glucose 144 H mg/dl
(70-99)
Total Bilirubin 2.3 H mg/dl
(0.2-1.3)
ALT 80 H U/L
(0-50)
Troponin I 1.090 H* ng/ml
07/23/23 16:38
07/23/23 16:38
Vital Signs
Initial and Last Documented VS:
Initial Vital Signs
Temp Pulse Resp BP Pulse Ox
98.1 F 94 28 109/74 96
07/23/23 16:19 07/23/23 16:19 07/23/23 16:19 07/23/23 16:19 07/23/23 16:19
Last Documented Vital Signs
Temp Pulse Resp BP Pulse Ox
98.1 F 97 23 105/69 92
07/23/23 16:19 07/23/23 18:24 07/23/23 18:24 07/23/23 18:24 07/23/23 18:15
MDM/Problems Addressed
Differential Diagnosis Includes:
HPI and MDM Narrative:
67-year-old male presenting with left central chest pain. This occurred earlier today. Patient is currently at [facility]. He was recently discharged from the hospital after he was diagnosed with coronary artery disease and required 1 stent.
Patient is supposed to have a CABG but not until he is healthier. He is recently getting over influenza and finished a course of Tamiflu. Daughter at bedside is unsure if this is related to musculoskeletal pain from increased rehab or potentially
related to indigestion. Now that patient is feeling better, his appetite has increased.
Patient did not receive any nitroglycerin to treat his pain. He is currently on dual antiplatelet therapy. Patient states he is feeling better without analgesia and states his chest pain is now 4 out of 10 which is better than it was
Physical exam
General: Well appearing and non-toxic
HEENT: protecting airway
Neck: appears supple
CV: No evidence of cyanosis. Regular rate and rhythm
Resp: No accessory muscle use. Lungs clear
Abd: Non-distended
Extremities: No deformities. No leg edema
Neuro: alert
Psych: Normal affect
Skin: Intact
Problems Addressed including Acute and Chronic Conditions affecting care:
1. Chest pain
Acuity: acute
Prognosis: stable
Details: Given the ongoing pain, will give dose of nitroglycerin. Patient has known coronary artery disease with significant stenosis that cardiothoracic surgery is planning CABG in the near future. Given recent stent, I expect an elevated troponin
Updates
Chest x-ray clear. Chest pain dramatically improved after nitroglycerin. Case discussed with cardiology who is comfortable starting Imdur. Troponin expectedly elevated but significantly improved from prior
Differential Diagnosis (but not limited to): ACS, musculoskeletal pain, indigestion
Testing considered: D-dimer but no clinical signs of DVT
Drug therapy (if applicable): OTC meds, please see d/c instruction regarding Rx drugs
Amount and/or Complexity of Data Reviewed
Clinical info obtained from: Patient
External data reviewed: Recent admission where he was found to have influenza and coronary artery disease requiring 1 stent
Labs I independently reviewed (but not limited to): Mild leukocytosis
Radiology: X-ray independently reviewed: Chest x-ray clear
Pulse Ox: not hypoxic
EKG independently reviewed: Sinus rhythm, right axis, no STEMI
Cuff Setter Overlock: Sinus rhythm
Critical Care: N/A
Risk of Complication:
Social Determinants of health: Good social support
Discussed with other providers: Windows Security Analyst
Escalation of Care includes Admit/Obs: After being observed in the Emergency Department, pt stable for discharge.
Occasional wrong word or 'sound a like' substitutions may have occurred due to the inherent limitations of voice recognition software. Read the chart carefully and recognize, using context, where substitutions have occurred.
*Critical Care Note
Total Time (30-74mins, 75-104mins- exclusive of procedures): Not Applicable
ED Attending Note
-
Portions of this chart may have been created with voice recognition software.� Occasional wrong word or��sound alike� substitutions may have occurred due to the inherent limitations of voice recognition software.
Discharge Plan
Departure
Patient Disposition: Home (Routine Discharge)
Date of Disposition: 07/23/23
Time of Disposition: 18:47
Patient with high blood pressure during this ER visit?: No
Discharge Problem:
Angina at rest
Instructions: Chest Pain CBC Follow Up
Prescriptions:
New
isosorbide mononitrate 30 mg tablet extended release 24 hr
30 mg PO DAILY Qty: 30 0RF
No Action
diltiazem HCl 240 mg Capsule,Extended Release 24hr
240 mg PO DAILY Qty: 0 0RF
Sore Throat (phenol) 1.4 % Aerosol,[place]
3 spray PO Q2HPRN PRN (Reason: sore throat) Qty: 0 0RF
Brilinta 90 mg Tablet
90 mg PO BID Qty: 0 0RF
ipratropium-albuterol 0.5 mg-3 mg(2.5 mg base)/3 mL Solution For Nebulization
3 ml inhalation R QID PRNQty: 0 0RF
polyethylene glycol 3350 [HealthyLax] 17 gram Powder In Packet
17 g PO DAILY Qty: 0 0RF
pantoprazole 40 mg Tablet,Delayed Release (Dr/Ec)
40 mg PO DAILY Qty: 0 0RF
magnesium oxide 500 mg magnesium Tablet
500 mg PO BID Qty: 0 0RF
aspirin [Children's Aspirin] 81 mg Tablet,Chewable
81 mg PO DAILY Qty: 0 0RF
insulin aspart U-100 [Novolog FlexPen U-100 Insulin] 100 unit/mL (3 mL) Insulin Pen
9 unit SC AC Qty: 0 0RF
guaifenesin 600 mg Tablet Extended Release 12hr
600 mg PO Q12 Qty: 0 0RF
Insulin Glargine Lantus [Lantus] 13 UNITS
Subcutaneous Insulin Syringe [Syringe-Insulin] 0 UNIT
As Directed mls/hr SC DAILY
Ordered By: Tra Mcdaniel DO
Last Taken: Unknown
Referrals:
NONE,* [Active] -
Activity Restrictions/Additional Instructions:
Please return for any worsening symptoms.
You may return at any time if you have further concerns.
The new medication is called Imdur. This is an extended release nitroglycerin. If you feel weak or dizzy when you take this medication, please discontinue it.
Please follow up with your doctor at the first available appointment, preferably this week.
Thank you for choosing [facility].
Interventions
Interventions:
*Risk Screen - Suicide Last Done: 07/23/23 16:19
*General Assessment Last Done: 07/23/23 16:19
*Neglect/Abuse Screening Last Done: 07/23/23 16:19
ED- Fall Risk Assessment Last Done: 07/23/23 16:19
*ED COVID-19 Vaccine History Last Done: 07/23/23 16:19
ED- Cardiac Assessment Last Done: 07/23/23 17:45
[2023-07-23 17:52] VITALS: BP 110/69
[2023-07-23] MEDS: NITROSTAT (SUBLINGUAL) 0.400000000000000022 MG SL (17:56)
[2023-07-23 18:00] VITALS: BP 95/63
--- NOTE | 2023-07-23 18:01 | EDRN ---
Central chest pain was a 3/10 and decreased to a 2/10 post NTG.
[2023-07-23 18:24] VITALS: BP 105/69
--- NOTE | 2023-07-23 18:25 | EDRN ---
Pt's family member asking about disposition. This RN spoke to Dr. Salazar and updated pt at this time.
== END 2023-07-23 18:57 | disposition home or self-care (01) ==
LOC: EMR 16:15
PROVIDERS: Emergency Medicine; EMERGENCY PHYSICIAN Student in an Organized Health Care Education/Training Program
DX: R07.89 Other chest pain (principal); I25.10 Atherosclerotic heart disease of native coronary artery without angina pectoris; I10 Essential (primary) hypertension; E11.9 Type 2 diabetes mellitus without complications; Z79.02 Long term (current) use of antithrombotics/antiplatelets; Z95.5 Presence of coronary angioplasty implant and graft
CPT/HCPCS: 99283; 71046; 80053; 84484; 85025; 93005

== ENCOUNTER → 2023-08-03 11:33 | Outpatient (REF) | payer OTHER, SELFPAY | LOC: RCS 11:33 | PROVIDERS: ATTENDING PHYSICIAN Thoracic Surgery (Cardiothoracic Vascular Surgery); FAMILY PHYSICIAN Family Medicine | DX: I25.10 Atherosclerotic heart disease of native coronary artery without angina pectoris (principal); I25.5 Ischemic cardiomyopathy; Z01.818 Encounter for other preprocedural examination | CPT/HCPCS: 93306 ==

== ENCOUNTER 2023-08-11 09:41 | Outpatient (RCR) | payer OTHER, SELFPAY | END 2023-08-11 23:59 | disposition home or self-care (01) | LOC: ROT 09:41 | PROVIDERS: ATTENDING PHYSICIAN Physical Medicine & Rehabilitation; FAMILY PHYSICIAN Family Medicine | DX: R41.841 Cognitive communication deficit (principal); Z73.6 Limitation of activities due to disability; R26.2 Difficulty in walking, not elsewhere classified; Z74.09 Other reduced mobility; I25.10 Atherosclerotic heart disease of native coronary artery without angina pectoris; J10.1 Influenza due to other identified influenza virus with other respiratory manifestations; I25.2 Old myocardial infarction; Z95.5 Presence of coronary angioplasty implant and graft | CPT/HCPCS: 96125; 97110; 97163; 97167 ==

== ENCOUNTER 2023-09-08 06:18 | Outpatient (RCR) | payer OTHER, SELFPAY | END 2023-09-08 23:59 | disposition home or self-care (01) | LOC: ROT 06:18 | PROVIDERS: ATTENDING PHYSICIAN Physical Medicine & Rehabilitation; FAMILY PHYSICIAN Family Medicine | DX: R26.2 Difficulty in walking, not elsewhere classified (principal); I25.10 Atherosclerotic heart disease of native coronary artery without angina pectoris; Z74.09 Other reduced mobility; R26.89 Other abnormalities of gait and mobility; Z73.6 Limitation of activities due to disability; R41.841 Cognitive communication deficit; J10.1 Influenza due to other identified influenza virus with other respiratory manifestations; I25.2 Old myocardial infarction; Z95.5 Presence of coronary angioplasty implant and graft | CPT/HCPCS: 97110; 97112; 97116; 97129; 97130; 97530; 97535 ==

== ENCOUNTER 2023-10-10 09:34 | Outpatient (RCR) | payer OTHER, SELFPAY | END 2023-10-10 23:59 | disposition home or self-care (01) | LOC: ROT 09:34 | PROVIDERS: ATTENDING PHYSICIAN Physical Medicine & Rehabilitation; FAMILY PHYSICIAN Family Medicine | DX: I25.10 Atherosclerotic heart disease of native coronary artery without angina pectoris (principal); I21.9 Acute myocardial infarction, unspecified; R26.2 Difficulty in walking, not elsewhere classified; Z95.5 Presence of coronary angioplasty implant and graft; Z74.09 Other reduced mobility; R41.841 Cognitive communication deficit | CPT/HCPCS: 97110; 97112; 97116; 97129; 97130; 97530; 97535 ==

== ENCOUNTER → 2023-12-16 13:09 | Outpatient (REF) | payer OTHER, SELFPAY | LOC: RCS 13:09 | PROVIDERS: ATTENDING PHYSICIAN Internal Medicine Cardiovascular Disease; FAMILY PHYSICIAN Family Medicine | DX: I25.10 Atherosclerotic heart disease of native coronary artery without angina pectoris (principal); I25.5 Ischemic cardiomyopathy; Z95.1 Presence of aortocoronary bypass graft; Z95.5 Presence of coronary angioplasty implant and graft | CPT/HCPCS: 93306 ==

== ENCOUNTER 2024-01-11 17:02 | Outpatient (RCR) | payer OTHER, SELFPAY ==
[2023-12-13 14:27] LABS: Glucose - Point of Care 145 mg/dl (70-99)
[2023-12-13 15:03] LABS: Glucose - Point of Care 141 mg/dl (70-99)
[2023-12-21 15:56] LABS: Glucose - Point of Care 135 mg/dl (70-99)
[2023-12-21 16:40] LABS: Glucose - Point of Care 124 mg/dl (70-99)
[2023-12-28 16:08] LABS: Glucose - Point of Care 232 mg/dl (70-99)
[2023-12-28 17:05] LABS: Glucose - Point of Care 266 mg/dl (70-99)
[2023-12-30 15:56] LABS: Glucose - Point of Care 157 mg/dl (70-99)
[2023-12-30 16:51] LABS: Glucose - Point of Care 159 mg/dl (70-99)
[2024-01-11 16:10] LABS: Glucose - Point of Care 173 mg/dl (70-99)
[2024-01-11 17:00] LABS: Glucose - Point of Care 105 mg/dl (70-99)
== END 2024-01-11 23:59 | disposition home or self-care (01) ==
LOC: CRHB 17:02
PROVIDERS: ATTENDING PHYSICIAN Internal Medicine Cardiovascular Disease
DX: I25.10 Atherosclerotic heart disease of native coronary artery without angina pectoris (principal); Z95.1 Presence of aortocoronary bypass graft; I25.2 Old myocardial infarction
CPT/HCPCS: 82962; G0422

== ENCOUNTER 2024-02-08 16:31 | Outpatient (RCR) | payer OTHER, SELFPAY ==
[2024-01-13 16:06] LABS: Glucose - Point of Care 108 mg/dl (70-99)
[2024-01-13 16:58] LABS: Glucose - Point of Care 117 mg/dl (70-99)
[2024-01-18 16:02] LABS: Glucose - Point of Care 146 mg/dl (70-99)
[2024-01-18 16:51] LABS: Glucose - Point of Care 154 mg/dl (70-99)
[2024-01-19 08:35] LABS: Glucose - Point of Care 103 mg/dl (70-99)
[2024-01-19 09:34] LABS: Glucose - Point of Care 167 mg/dl (70-99)
[2024-02-01 16:01] LABS: Glucose - Point of Care 107 mg/dl (70-99)
[2024-02-01 17:16] LABS: Glucose - Point of Care 103 mg/dl (70-99)
== END 2024-02-08 23:59 | disposition home or self-care (01) ==
LOC: CRHB 16:31
PROVIDERS: ATTENDING PHYSICIAN Internal Medicine Cardiovascular Disease
DX: I25.10 Atherosclerotic heart disease of native coronary artery without angina pectoris (principal); Z95.1 Presence of aortocoronary bypass graft; I25.2 Old myocardial infarction
CPT/HCPCS: 82962; 93005; G0422

== ENCOUNTER → 2024-07-13 07:54 | Outpatient (REF) | payer OTHER, SELFPAY | LOC: HWRAD 07:54 | PROVIDERS: ATTENDING PHYSICIAN Internal Medicine Critical Care Medicine; FAMILY PHYSICIAN Family Medicine | DX: R91.1 Solitary pulmonary nodule (principal); R05.3 Chronic cough | CPT/HCPCS: 71250 ==

== ENCOUNTER → 2024-11-23 06:38 | Outpatient (REF) | payer OTHER, SELFPAY | LOC: PAVMRI 06:38 | PROVIDERS: ATTENDING PHYSICIAN Specialist; FAMILY PHYSICIAN Internal Medicine | DX: M54.14 Radiculopathy, thoracic region (principal) | CPT/HCPCS: 72146 ==